=== PATIENT | female | born 1940 | race American Indian/Alaskan Native ===

== ENCOUNTER 2016-12-14 20:20 | Emergency (ER) | payer MEDICARE ==
[2016-12-14 21:43] LABS: Basophils % (Auto) 1.5 % (0.0-1.8); Eosinophils % (Auto) 1.7 % (0.0-4.3); Hematocrit 26.1 % (30.3-42.9); Hemoglobin 7.9 gm/dl (10.1-14.3); Mean Corpuscular HGB Conc 30 % (30-34); Platelet Count 367 K/mm3 (140-440); Red Blood Count 3.74 M/mm3 (3.65-5.03); White Blood Count 7.5 K/mm3 (4.5-11.0)
[2016-12-14 21:45] LABS: Mean Corpuscular Hemoglobin 21 pg (28-32); Mean Corpuscular Volume 70 fl (79-97); Red Cell Distribution Width 20.4 % (13.2-15.2)
[2016-12-14 21:57] LABS: Anion Gap 21 mmol/L; BUN/Creatinine Ratio 11.25; Blood Urea Nitrogen 9 mg/dL (7-17); Calcium 9.3 mg/dL (8.4-10.2); Carbon Dioxide 21 mmol/L (22-30); Chloride 99.8 mmol/L (98-107); Glucose 103 mg/dL (65-100); Potassium 3.9 mmol/L (3.6-5.0); Sodium 138 mmol/L (137-145)
--- NOTE | 2016-12-14 22:55 | XRay Report ---
FINAL REPORT EXAM: XR CHEST ROUTINE 2V HISTORY: shortness of breath TECHNIQUE: PA and lateral chest radiographs PRIORS: None. FINDINGS: No mediastinal shift. Cardiac silhouette is enlarged. Hyperaeration of the lungs and flattening of the hemidiaphragms. No pneumothorax, effusion, or focal pulmonary opacity. No acute skeletal finding. IMPRESSION: No focal pulmonary opacity. Sequela of COPD and heart failure.
[2016-12-15] MEDS ORDERED: PROVENTIL IH ONE (05:30)
[2016-12-15] MEDS: ATROVENT IH ONE (05:53)
[2016-12-15 06:40] VITALS: BP 122/61
--- NOTE | 2016-12-15 06:50 | Emergency Department Report ---
HPI - General Chief Complaint: Upper Respiratory Infection Time Seen by Provider: 12/15/16 06:08 - HPI HPI: This is a 76-year-old Afro-[place] female presents to the emergency department with a complaint of a one-week history of productive cough with some yellowish sputum. Patient says she has been having some subjective fever with sweats at night. The cough does not happen consistently but she will have episodes with coughing fits and it is getting more consistent over the past few days. She denies any chest pain, swelling, nausea, vomiting or diaphoresis. She has not been a smoker for many decades but does have a [id number] history. She has history of CHF, COPD but is not oxygen dependent, diabetes, hypertension. She is from [facility] which is where she has a primary care physician. She did not take anything for her symptoms prior to presentation. The patient keeps saying that she has a "cold but I let it get too far." ED Past Medical Hx - Past Medical History Previous Medical History?: Yes Hx Hypertension: Yes Hx Congestive Heart Failure: Yes Hx Diabetes: Yes Hx COPD: Yes - Surgical History Past Surgical History?: Yes Hx Cholecystectomy: Yes - Social History Smoking Status: Never Smoker - Medications Home Medications: Home Medications Medication Instructions Recorded Confirmed Last Taken Type ALBUTEROL Inhaler [ProAir HFA 2 puff IH QID PRN #1 inhalation 12/15/16 Unknown Rx Inhaler] Azithromycin [Zithromax Z-JAMILA] 250 mg PO QDAY #6 tablet 12/15/16 Unknown Rx Benzonatate [Tessalon Perles] 100 mg PO Q8HR PRN #20 capsule 12/15/16 Unknown Rx ED Review of Systems ROS: Stated complaint: COLD SX Other details as noted in HPI Comment: All other systems reviewed and negative Constitutional: fever (subjective). denies: chills Eyes: denies: eye pain, eye discharge, vision change Respiratory: cough. denies: shortness of breath Cardiovascular: denies: chest pain, palpitations Gastrointestinal: denies: abdominal pain, nausea, diarrhea Genitourinary: denies: urgency, dysuria, discharge Musculoskeletal: denies: back pain, joint swelling, arthralgia Skin: denies: rash, lesions Neurological: denies: headache, weakness, paresthesias Physical Exam - Physical Exam Vital Signs: Vital Signs 12/14/16 12/14/16 12/15/16 21:05 21:11 04:00 Temperature 98.3 F 98.3 F 98.1 F Pulse Rate 91 H 91 H 90 Pulse Rate [ Bilateral Throughout] Respiratory 20 18 22 Rate Respiratory Rate [Bilateral Throughout] Blood Pressure 117/57 Blood Pressure 117/57 115/63 [Right] O2 Sat by Pulse 97 100 97 Oximetry 12/15/16 12/15/16 05:53 06:40 Temperature Pulse Rate 98 H Pulse Rate [ 86 Bilateral Throughout] Respiratory 20 Rate Respiratory 18 Rate [Bilateral Throughout] Blood Pressure Blood Pressure 122/61 [Right] O2 Sat by Pulse 96 Oximetry Physical Exam: GENERAL: The patient is well-developed well-nourished. HEENT: Normocephalic. Atraumatic. Extraocular motions are intact. Patient has moist mucous membranes. Pupils equal reactive to light bilaterally. NECK: Supple. Trachea is midline. CHEST/LUNGS: Clear to auscultation. No tachypnea or accessory muscle use. There was an occasional productive sounding cough heard during examination. There is no respiratory distress noted. HEART/CARDIOVASCULAR: Regular. There is no tachycardia. There is no gallop rub or murmur. ABDOMEN: Abdomen is soft, nontender. Patient has normal bowel sounds. There is no abdominal distention. SKIN: Skin is warm and dry. NEURO: The patient is awake, alert, and oriented. The patient is cooperative. The patient has no focal neurologic deficits. The patient has normal speech. MUSCULOSKELETAL: There is no tenderness or deformity. There is no limitation range of motion. There is no evidence of acute injury. ED Course Vital Signs 12/14/16 12/14/16 12/15/16 21:05 21:11 04:00 Temperature 98.3 F 98.3 F 98.1 F Pulse Rate 91 H 91 H 90 Pulse Rate [ Bilateral Throughout] Respiratory 20 18 22 Rate Respiratory Rate [Bilateral Throughout] Blood Pressure 117/57 Blood Pressure 117/57 115/63 [Right] O2 Sat by Pulse 97 100 97 Oximetry 12/15/16 12/15/16 05:53 06:40 Temperature Pulse Rate 98 H Pulse Rate [ 86 Bilateral Throughout] Respiratory 20 Rate Respiratory 18 Rate [Bilateral Throughout] Blood Pressure Blood Pressure 122/61 [Right] O2 Sat by Pulse 96 Oximetry ED Medical Decision Making - Lab Data Result diagrams: 12/14/16 21:23 12/14/16 21:23 - EKG Data -: EKG Interpreted by Me EKG shows normal: sinus rhythm, axis, intervals, QRS complexes, ST-T waves ( nonspecific ST-T changes) Rate: normal - EKG Data When compared to previous EKG there are: previous EKG unavailable Interpretation: nonspecific ST-T wave chan - Radiology Data Radiology results: image reviewed interpreted by me: Chest x-ray shows some hyperinflation of the lungs with flattening of the diaphragm consistent with COPD. Otherwise there was no pneumothorax, no effusions or obvious pneumonia. - Medical Decision Making 76-year-old female presents with one-week history of productive cough. She denies any chest pain or actual shortness of breath or respiratory distress at any point. While the patient says that she feels like she has some night sweats and fever, there is no fever here and the patient has not x-ray checked her temperature. Her vital signs were stable here including being afebrile. Chest x-ray did not show any pleural effusions, pneumothorax, pneumonia or any cavitating lesions. Her labs are unremarkable including no leukocytosis, electrolyte abnormalities, renal insufficiency, glucose abnormalities. Patient was given a breathing treatment and says she is feeling improved. Since the patient does not have any chest pain, shortness of breath, normal labs, stable/ chronic chest x-ray appearance, she appears safe for discharge home at this time. However I spoke to her in great detail that she should return to the emergency department with any worsening or symptoms or specifically any development of chest pain or shortness of breath as it seemed like her only main complaint today was a cough and subjective fever. Otherwise she will return to [place] early next week and has been encouraged to see her primary care physician. - Differential Diagnosis upper respiratory infection, pneumonia, CHF, asthma Critical Care Time: No Critical care attestation.: If time is entered above; I have spent that time in minutes in the direct care of this critically ill patient, excluding procedure time. ED Disposition Clinical Impression: Cough Upper respiratory infection Qualifiers: URI type: unspecified URI Qualified Code(s): J06.9 - Acute upper respiratory infection, unspecified Disposition: DISCHARGED TO HOME OR SELFCARE Is pt being admited?: No Condition: Stable Instructions: Upper Respiratory Infection (ED) Additional Instructions: Please follow-up with your primary care physician once you return to [place]. Return to the emergency department sooner with any worsening of her symptoms, development of chest pain or shortness of breath, intractable fever or any acute distress. Prescriptions: ALBUTEROL Inhaler [ProAir HFA Inhaler] 2 puff IH QID PRN #1 inhalation PRN Reason: Shortness Of Breath Azithromycin [Zithromax Z-JAMILA] 250 mg PO QDAY #6 tablet Benzonatate [Tessalon Perles] 100 mg PO Q8HR PRN #20 capsule PRN Reason: Cough Referrals: PRIMARY CARE, [Primary Care Provider] - [facility] Forms: Accompanied Note Time of Disposition: 07:02
== END 2016-12-15 07:11 | disposition home or self-care (01) ==
LOC: ED 20:20
DX: J06.9 Acute upper respiratory infection, unspecified (principal); I10 Essential (primary) hypertension; I50.9 Heart failure, unspecified; E11.9 Type 2 diabetes mellitus without complications; J44.9 Chronic obstructive pulmonary disease, unspecified
CPT/HCPCS: 36415; 71020; 80048; 85025; 87040; 93005; 93010; 94640

== ENCOUNTER 2018-03-14 14:41 | Emergency (ER) | payer MEDICARE ==
[2018-03-14 15:35] LABS: Hematocrit 38.5 % (30.3-42.9); Hemoglobin 12.6 gm/dl (10.1-14.3); Mean Corpuscular HGB Conc 33 % (30-34); Mean Corpuscular Hemoglobin 29 pg (28-32); Mean Corpuscular Volume 88 fl (79-97); Platelet Count 243 K/mm3 (140-440)
[2018-03-14 15:40] LABS: Red Cell Distribution Width 20.1 % (13.2-15.2)
[2018-03-14 17:50] LABS: Alanine Aminotransferase 27 units/L (7-56); Albumin 3.9 g/dL (3.9-5); BUN/Creatinine Ratio 20; Blood Urea Nitrogen 14 mg/dL (7-17); Calcium 9.7 mg/dL (8.4-10.2); Hemolysis Index 3
[2018-03-14 18:47] LABS: INR 9.18 (0.87-1.13); Partial Thromboplastin Time 71.1 Sec. (24.2-36.6)
--- NOTE | 2018-03-14 19:56 | Emergency Department Report ---
ED Medical Clearance HPI - General Chief complaint: Medical Clearance Stated complaint: BLOOD WORK Time Seen by Provider: 03/14/18 19:55 Source: patient Mode of arrival: Ambulatory - History of Present Illness Initial comments: Patient is a 38-year-old female past medical history of congestive heart failure , COPD, diabetes, hypertension who presents today for medical clearance. 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 Patient is on Coumadin 3 mg. She got her Coumadin level checked today and it was 8. She was sent here for evaluation. Patient denies having any nausea or vomiting. Patient says that she had a blood streak stool 3 days ago. She denies having any fever vomiting blood or bruising easily. She also denies having any falls. Home medications: Home Medications Medication Instructions Recorded Confirmed Last Taken Aspirin [Aspirin BABY CHEW TAB] 81 mg PO QDAY 03/14/18 03/14/18 Unknown Carvedilol [Coreg] 3.125 mg PO DAILY 03/14/18 03/14/18 Unknown Digoxin 125 mcg PO DAILY 03/14/18 03/14/18 Unknown Docusate Sodium [Stool Softener] 100 mg PO DAILY 03/14/18 03/14/18 Unknown Pantoprazole [Protonix] 40 mg PO QDAY 03/14/18 03/14/18 Unknown Spironolactone 25 mg PO DAILY 03/14/18 03/14/18 Unknown Warfarin Sodium [Coumadin] 3 mg PO QDAY 03/14/18 03/14/18 Unknown Previous Rx's Medication Instructions Recorded Last Taken Type ALBUTEROL Inhaler (OR & NICU) 2 puff IH QID PRN #1 inhalation 12/15/16 Unknown Rx [ProAir HFA Inhaler] Allergies/Adverse reactions: Allergies Allergy/AdvReac Type Severity Reaction Status Date / Time ramipril Allergy Unknown Verified 03/14/18 14:59 ED Review of Systems ROS: Stated complaint: BLOOD WORK Other details as noted in HPI Constitutional: denies: chills, fever Eyes: denies: eye pain, eye discharge, vision change ENT: denies: ear pain, throat pain Respiratory: denies: cough, shortness of breath, wheezing Cardiovascular: denies: chest pain, palpitations Endocrine: no symptoms reported Gastrointestinal: hematochezia (hemorrhoid). denies: abdominal pain, nausea, diarrhea Genitourinary: denies: urgency, dysuria, discharge Musculoskeletal: denies: back pain, joint swelling, arthralgia Skin: denies: rash, lesions Neurological: denies: headache, weakness, paresthesias Psychiatric: denies: anxiety, depression Hematological/Lymphatic: denies: easy bleeding, easy bruising ED Past Medical Hx - Past Medical History Hx Hypertension: Yes Hx Congestive Heart Failure: Yes Hx Diabetes: Yes Hx COPD: Yes Additional medical history: defib. vest - Surgical History Hx Cholecystectomy: Yes - Social History Smoking Status: Unknown if ever smoked Substance Use Type: None - Medications Home Medications: Home Medications Medication Instructions Recorded Confirmed Last Taken Type ALBUTEROL Inhaler (OR & NICU) 2 puff IH QID PRN #1 inhalation 12/15/16 03/14/18 Unknown Rx [ProAir HFA Inhaler] Aspirin [Aspirin BABY CHEW TAB] 81 mg PO QDAY 03/14/18 03/14/18 Unknown History Carvedilol [Coreg] 3.125 mg PO DAILY 03/14/18 03/14/18 Unknown History Digoxin 125 mcg PO DAILY 03/14/18 03/14/18 Unknown History Docusate Sodium [Stool Softener] 100 mg PO DAILY 03/14/18 03/14/18 Unknown History Pantoprazole [Protonix] 40 mg PO QDAY 03/14/18 03/14/18 Unknown History Spironolactone 25 mg PO DAILY 03/14/18 03/14/18 Unknown History Warfarin Sodium [Coumadin] 3 mg PO QDAY 03/14/18 03/14/18 Unknown History ED Physical Exam - General Limitations: Language Barrier General appearance: alert, in no apparent distress - Head Head exam: Present: atraumatic, normocephalic - Eye Eye exam: Present: normal appearance - ENT ENT exam: Present: mucous membranes moist - Neck Neck exam: Present: normal inspection - Respiratory Respiratory exam: Present: normal lung sounds bilaterally. Absent: respiratory distress - Cardiovascular Cardiovascular Exam: Present: regular rate, normal rhythm. Absent: systolic murmur, diastolic murmur, rubs, gallop - GI/Abdominal GI/Abdominal exam: Present: soft, normal bowel sounds - Extremities Exam Extremities exam: Present: normal inspection - Back Exam Back exam: Present: normal inspection - Neurological Exam Neurological exam: Present: alert, oriented X3 - Psychiatric Psychiatric exam: Present: normal affect, normal mood - Skin Skin exam: Present: warm, dry, intact, normal color. Absent: rash ED Course Vital Signs 03/14/18 14:52 Temperature 97.6 F Pulse Rate 60 Respiratory 18 Rate Blood Pressure 131/64 O2 Sat by Pulse 99 Oximetry ED Medical Decision Making - Lab Data Result diagrams: 03/14/18 15:08 03/14/18 15:08 Lab Results 03/14/18 03/14/18 03/14/18 Range/Units 15:08 15:08 15:08 WBC 3.3 L (4.5-11.0) K/mm3 RBC 4.40 (3.65-5.03) M/mm3 Hgb 12.6 (10.1-14.3) gm/dl Hct 38.5 (30.3-42.9) % MCV 88 (79-97) fl MCH 29 (28-32) pg MCHC 33 (30-34) % RDW 20.1 H (13.2-15.2) % Plt Count 243 (140-440) K/mm3 PT 74.4 H (12.2-14.9) Sec. INR 9.18 H* (0.87-1.13) APTT 71.1 H* (24.2-36.6) Sec. Sodium 145 (137-145) mmol/L Potassium 4.2 (3.6-5.0) mmol/L Chloride 106.9 (98-107) mmol/L Carbon Dioxide 17 L (22-30) mmol/L Anion Gap 25 mmol/L BUN 14 (7-17) mg/dL Creatinine 0.7 (0.7-1.2) mg/dL Estimated GFR > 60 ml/min BUN/Creatinine Ratio 20 % Glucose 116 H (65-100) mg/dL Calcium 9.7 (8.4-10.2) mg/dL Total Bilirubin 1.80 H (0.1-1.2) mg/dL AST 43 H (5-40) units/L ALT 27 (7-56) units/L Alkaline Phosphatase 105 (35-129) units/L Total Protein 7.4 (6.3-8.2) g/dL Albumin 3.9 (3.9-5) g/dL Albumin/Globulin Ratio 1.1 % - Medical Decision Making Cdx: Supratheraputic INR 2/2 warfarin Ddx: Coagulopathy 2/2 non adherence to drug regimen, anemia I will get CBC, BMP, INR, PTT I will also give patient oral vitamin K and I will advise patient not to take her warfarin for a couple days based on the ACCP guidelines Discussed plan with patient additional verbal discharge instructions were given. ED Disposition Clinical Impression: Supratherapeutic INR Disposition: [id number]-01 TO HOME OR SELFCARE Is pt being admited?: No Does the pt Need Aspirin: No Condition: Stable Instructions: Vitamin K in Foods (ED), Warfarin (By mouth), Elevated INR (ED) Referrals: NIRANJAN DOOLEY MD [Staff Physician] - 3-5 Days
[2018-03-14] MEDS ORDERED: VITAMIN K *ORAL LIQUID PO ONE (21:06)
[2018-03-14 23:47] VITALS: BP 128/68
== END 2018-03-14 23:47 | disposition home or self-care (01) ==
LOC: ED 14:41
DX: Z51.81 Encounter for therapeutic drug level monitoring (principal); I10 Essential (primary) hypertension; I11.0 Hypertensive heart disease with heart failure; I50.9 Heart failure, unspecified; E11.9 Type 2 diabetes mellitus without complications; J44.9 Chronic obstructive pulmonary disease, unspecified; D65 Disseminated intravascular coagulation [defibrination syndrome]; Z90.49 Acquired absence of other specified parts of digestive tract; Z79.899 Other long term (current) drug therapy
CPT/HCPCS: 36415; 80053; 85027; 85610; 85730; 99283; J3430

== ENCOUNTER 2020-08-13 12:47 | Inpatient (IN) | payer MEDICARE ==
[2020-08-13] MEDS ORDERED: DEXTROSE 50% IN WATER (25GM) 50 ML SYRINGE IV ONE ×6 (12:51→23:45)
[2020-08-13] MEDS ORDERED: GLUCAGON (HUMAN RECOMBINANT) 1 MG/ML INJ IV ONE (12:56)
[2020-08-13] MEDS ORDERED: LIP THERAPY VASELINE TP PRN (12:58)
[2020-08-13] MEDS ORDERED: MINERAL OIL/PETROLATUM, WHITE OPHTH OINT 3.5 GM OU PRN (12:58)
[2020-08-13] MEDS ORDERED: ACETAMINOPHEN 325 MG TAB PO PRN (12:58)
[2020-08-13] MEDS ORDERED: D5W/0.9% NACL 1,000 ML IV SCH (13:00)
--- NOTE | 2020-08-13 13:14 | Emergency Department Report ---
ED General Adult HPI - General Chief complaint: Cardiac Arrest/CPR Stated complaint: CA Time Seen by Provider: 08/13/20 12:55 Source: EMS Mode of arrival: Stretcher Limitations: Other - History of Present Illness Initial comments: The patient presents to the emergency department via [facility] with return of spontaneous circulation. Per EMS they were called to the home for difficulty with breathing upon their arrival the patient's O2 sats were in the 70s while attempting to place the patient on CPAP the patient coded. Per EMS the patient was recently diagnosed with Covid. Patient did go in the ventricular tachycardia and was shot given epinephrine return of spontaneous circulation in route to the ED. Patient was intubated prior to arrival to the ED. -: Sudden Improves with: none Worsens with: none Associated Symptoms: denies other symptoms Treatments Prior to Arrival: none - Related Data Home Medications Medication Instructions Recorded Confirmed Last Taken Aspirin [Aspirin BABY CHEW TAB] 81 mg PO DAILY 03/14/18 07/23/20 Unknown Carvedilol [Coreg] 3.125 mg PO DAILY 03/14/18 07/23/20 Unknown Docusate Sodium [Stool Softener] 100 mg PO DAILY 03/14/18 07/23/20 Unknown Spironolactone 25 mg PO DAILY 03/14/18 07/23/20 Unknown Previous Rx's Medication Instructions Recorded Last Taken Type Pantoprazole [Protonix TAB] 40 mg PO QDAY #30 tablet 06/18/18 Unknown Rx polyethylene glycoL 3350 [Miralax 17 gm PO BID PRN #20 powd.pack 06/18/18 Unknown Rx 3350] Antacid [Alum-Mag Hydrox-Simeth 15 ml PO Q4H PRN oral.liqd 07/24/20 Unknown Rx [id number]/5Ml] Apixaban [Eliquis] 2.5 mg PO Q12HR #60 tablet 07/24/20 Unknown Rx Ascorbic Acid [Vitamin C] 500 mg PO DAILY #30 tablet 07/24/20 Unknown Rx Zinc Sulfate 220 mg PO QDAY #30 capsule 07/24/20 Unknown Rx dexAMETHasone [Dexamethasone] 6 mg PO DAILY #6 tablet 07/24/20 Unknown Rx traMADoL [Ultram 50 MG tab] 50 mg PO Q4H PRN #6 tablet 07/24/20 Unknown Rx Allergies Allergy/AdvReac Type Severity Reaction Status Date / Time ramipril Allergy Unknown Verified 06/15/18 12:45 ED Review of Systems ROS: Stated complaint: CA Other details as noted in HPI Comment: Unobtainable due to pts medical conditions ED Past Medical Hx - Past Medical History Previous Medical History?: Yes Hx Hypertension: Yes Hx Congestive Heart Failure: Yes Hx Diabetes: Yes Hx COPD: Yes Additional medical history: defib. vest(no longer have). Atrial fibrillation. Gastric AVM causing GI bleed - Surgical History Past Surgical History?: Yes Hx Cholecystectomy: Yes - Social History Smoking Status: Unknown if ever smoked - Medications Home Medications: Home Medications Medication Instructions Recorded Confirmed Last Taken Type Aspirin [Aspirin BABY CHEW TAB] 81 mg PO DAILY 03/14/18 07/23/20 Unknown History Carvedilol [Coreg] 3.125 mg PO DAILY 03/14/18 07/23/20 Unknown History Docusate Sodium [Stool Softener] 100 mg PO DAILY 03/14/18 07/23/20 Unknown History Spironolactone 25 mg PO DAILY 03/14/18 07/23/20 Unknown History Pantoprazole [Protonix TAB] 40 mg PO QDAY #30 tablet 06/18/18 07/23/20 Unknown Rx polyethylene glycoL 3350 [Miralax 17 gm PO BID PRN #20 powd.pack 06/18/18 07/23/20 Unknown Rx 3350] Antacid [Alum-Mag Hydrox-Simeth 15 ml PO Q4H PRN oral.liqd 07/24/20 Unknown Rx [id number]/5Ml] Apixaban [Eliquis] 2.5 mg PO Q12HR #60 tablet 07/24/20 Unknown Rx Ascorbic Acid [Vitamin C] 500 mg PO DAILY #30 tablet 07/24/20 Unknown Rx Zinc Sulfate 220 mg PO QDAY #30 capsule 07/24/20 Unknown Rx dexAMETHasone [Dexamethasone] 6 mg PO DAILY #6 tablet 07/24/20 Unknown Rx traMADoL [Ultram 50 MG tab] 50 mg PO Q4H PRN #6 tablet 07/24/20 Unknown Rx ED Physical Exam - General Limitations: Other General appearance: other (Intubated) - Head Head exam: Present: atraumatic, normocephalic - Eye Eye exam: Present: normal appearance, PERRL. Absent: scleral icterus, conjunctival injection - ENT ENT exam: Present: mucous membranes dry - Neck Neck exam: Present: normal inspection - Respiratory Respiratory exam: Present: normal lung sounds bilaterally (With bagging). Absent: respiratory distress - Cardiovascular Cardiovascular Exam: Present: normal rhythm, tachycardia. Absent: systolic murmur, diastolic murmur, rubs, gallop - GI/Abdominal GI/Abdominal exam: Present: soft, normal bowel sounds. Absent: distended, tenderness - Extremities Exam Extremities exam: Present: normal inspection - Back Exam Back exam: Present: normal inspection - Neurological Exam Neurological exam: Present: other (Patient has corneal reflex and withdraws from painful stimuli) - Psychiatric Psychiatric exam: Present: other (Not able to assess due to the patient's condition) - Skin Skin exam: Present: warm, dry, intact, normal color. Absent: rash ED Course Vital Signs 08/13/20 08/13/20 08/13/20 12:47 13:04 13:15 Temperature Pulse Rate 104 H 101 H 93 H Respiratory 18 18 18 Rate Blood Pressure 127/67 Blood Pressure 141/79 128/72 [Right] O2 Sat by Pulse 96 100 100 Oximetry 08/13/20 08/13/20 08/13/20 13:33 13:40 13:55 Temperature Pulse Rate 89 85 82 Respiratory 18 18 Rate Blood Pressure 128/72 Blood Pressure 136/64 118/66 [Right] O2 Sat by Pulse 100 100 100 Oximetry 08/13/20 08/13/20 08/13/20 14:00 14:05 14:58 Temperature 95.5 F L Pulse Rate 84 105 H 108 H Respiratory 18 18 18 Rate Blood Pressure Blood Pressure 121/67 124/68 154/82 [Right] O2 Sat by Pulse 100 100 100 Oximetry 08/13/20 08/13/20 08/13/20 15:06 15:10 15:44 Temperature Pulse Rate 90 110 H 120 H Respiratory 21 18 18 Rate Blood Pressure Blood Pressure [Right] O2 Sat by Pulse 98 97 Oximetry 08/13/20 08/13/20 08/13/20 15:45 15:50 15:53 Temperature Pulse Rate 110 H 107 H 94 H Respiratory 18 21 Rate Blood Pressure 126/74 154/82 Blood Pressure 126/74 [Right] O2 Sat by Pulse 95 98 100 Oximetry 08/13/20 08/13/20 08/13/20 16:00 16:10 16:13 Temperature Pulse Rate 87 88 Respiratory 19 20 18 Rate Blood Pressure 126/74 114/65 Blood Pressure 114/65 [Right] O2 Sat by Pulse 97 96 100 Oximetry 08/13/20 08/13/20 08/13/20 16:20 16:30 16:40 Temperature Pulse Rate 81 99 H 82 Respiratory 19 18 18 Rate Blood Pressure 111/63 105/60 105/60 Blood Pressure 105/60 [Right] O2 Sat by Pulse 97 95 97 Oximetry 08/13/20 08/13/20 08/13/20 16:50 17:00 17:10 Temperature Pulse Rate 81 77 79 Respiratory 18 18 19 Rate Blood Pressure 108/65 104/60 104/60 Blood Pressure 104/60 [Right] O2 Sat by Pulse 95 95 96 Oximetry 08/13/20 08/13/20 08/13/20 17:20 17:30 17:40 Temperature Pulse Rate 79 79 77 Respiratory 19 18 18 Rate Blood Pressure 109/67 108/60 108/60 Blood Pressure 108/60 [Right] O2 Sat by Pulse 97 95 97 Oximetry 08/13/20 08/13/20 08/13/20 17:50 18:00 18:10 Temperature Pulse Rate 78 77 73 Respiratory 19 18 19 Rate Blood Pressure 114/69 100/55 100/55 Blood Pressure 100/55 [Right] O2 Sat by Pulse 97 97 99 Oximetry 08/13/20 08/13/20 08/13/20 18:20 18:30 18:31 Temperature Pulse Rate 73 96 H 118 H Respiratory 18 13 18 Rate Blood Pressure 103/51 129/84 Blood Pressure 129/84 [Right] O2 Sat by Pulse 98 97 97 Oximetry 08/13/20 08/13/20 08/13/20 18:40 18:46 18:50 Temperature Pulse Rate 110 H 102 H 74 Respiratory 18 18 18 Rate Blood Pressure 129/84 80/47 Blood Pressure 79/53 [Right] O2 Sat by Pulse 99 98 100 Oximetry 08/13/20 08/13/20 08/13/20 19:00 19:10 19:20 Temperature Pulse Rate 63 62 62 Respiratory 0 L 0 L 18 Rate Blood Pressure 72/46 72/46 72/42 Blood Pressure 72/46 [Right] O2 Sat by Pulse 99 100 99 Oximetry 08/13/20 08/13/20 08/13/20 19:30 19:51 20:00 Temperature Pulse Rate 61 60 61 Respiratory 18 18 Rate Blood Pressure 75/46 75/43 Blood Pressure 72/41 [Right] O2 Sat by Pulse 100 100 Oximetry 08/13/20 08/13/20 08/13/20 20:15 20:30 21:00 Temperature Pulse Rate 58 L 59 L 60 Respiratory 18 18 19 Rate Blood Pressure Blood Pressure 74/45 77/39 78/44 [Right] O2 Sat by Pulse 100 100 98 Oximetry 08/13/20 08/13/20 08/13/20 21:15 21:30 21:45 Temperature Pulse Rate 66 59 L 90 Respiratory 18 20 18 Rate Blood Pressure Blood Pressure 79/42 91/49 96/51 [Right] O2 Sat by Pulse 100 100 100 Oximetry 08/13/20 08/13/20 08/13/20 21:47 22:00 22:10 Temperature Pulse Rate 62 60 63 Respiratory 20 20 19 Rate Blood Pressure 96/51 96/44 Blood Pressure [Right] O2 Sat by Pulse 100 100 100 Oximetry 08/13/20 08/13/20 08/13/20 22:20 22:30 22:40 Temperature Pulse Rate 63 68 64 Respiratory 21 20 19 Rate Blood Pressure 92/49 90/48 90/48 Blood Pressure [Right] O2 Sat by Pulse 100 100 100 Oximetry 08/13/20 08/13/20 08/13/20 22:50 23:00 23:10 Temperature Pulse Rate 69 67 65 Respiratory 20 19 19 Rate Blood Pressure 98/53 101/53 101/53 Blood Pressure [Right] O2 Sat by Pulse 100 99 96 Oximetry 08/13/20 23:20 Temperature Pulse Rate 82 Respiratory 13 Rate Blood Pressure Blood Pressure [Right] O2 Sat by Pulse 100 Oximetry ED Medical Decision Making - Lab Data Result diagrams: 08/19/20 04:39 08/19/20 04:39 Lab Results 08/13/20 Range/Units 13:55 ABG pH 7.126 L* (7.350-7.450) pH Units ABG pCO2 33.1 mm Hg ABG pO2 375.9 H (80.0-90.0) mm Hg ABG HCO3 10.7 L (20.0-26.0) mmol/L ABG O2 Saturation 99.5 H (95.0-99.0) % ABG O2 Content 16.8 (0.0-44) ABG Base Excess -17.4 L (-2.0-3.0) mmol/L ABG Hemoglobin 11.5 L (12.0-16.0) gm/dl ABG Carboxyhemoglobin 1.7 (0.0-5.0) % ABG Methemoglobin 0.6 (0.0-1.5) % Oxyhemoglobin 97.3 (95.0-99.0) % FiO2 100 % - EKG Data -: EKG Interpreted by Mi EKG shows normal: sinus rhythm Rate: tachycardia - Medical Decision Making The patient had return of spontaneous circulation upon arrival to the ED The patient's glucose was checked at bedside and was less than 10 Patient was given 2 A of D50, 1 mg of glucagon, and a liter bolus of D5 normal saline Patient placed on fentanyl for sedation Contacted by radiology that the ET tube need to be withdrawn by 5 cm. Contacted respiratory therapy and ET tube was adjusted Critical Care Time: Yes Critical care time in (mins) excluding proc time.: 45 Critical care attestation.: If time is entered above; I have spent that time in minutes in the direct care of this critically ill patient, excluding procedure time. ED Disposition Clinical Impression: Cardiac arrest, Hypoglycemia, Respiratory failure Disposition: [id number] OP ADMIT IP TO THIS HOSP Is pt being admited?: Yes Does the pt Need Aspirin: No Condition: Critical
[2020-08-13] MEDS: fentaNYL 100 MCG/2 ML INJ IV PRN ×3 (13:31→18:36)
[2020-08-13] MEDS ORDERED: fentaNYL DRIP Premix 2,000 MCG/100 ML BAG IV SCH (14:00)
[2020-08-13 14:20] LABS: ABG Base Excess -17.4 mmol/L (-2.0-3.0); ABG HCO3 10.7 mmol/L (20.0-26.0); ABG Methemoglobin 0.6 % (0.0-1.5); ABG Oxygen Saturation 99.5 % (95.0-99.0); ABG PCO2 33.1 mm Hg
[2020-08-13 14:23] LABS: ABG PH 7.126 pH Units (7.350-7.450); ABG PO2 375.9 mm Hg (80.0-90.0)
[2020-08-13 14:34] LABS: Mean Corpuscular HGB Conc 30 % (30-34); Mean Corpuscular Volume 99 fl (79-97); Platelet Count 148 K/mm3 (140-440); Red Blood Count 4.01 M/mm3 (3.65-5.03); Red Cell Distribution Width 19.6 % (13.2-15.2)
[2020-08-13 14:40] LABS: Hematocrit 39.7 % (30.3-42.9); Hemoglobin 11.9 gm/dl (10.1-14.3)
[2020-08-13 14:48] LABS: Partial Thromboplastin Time 45.4 Sec. (24.2-36.6)
[2020-08-13 14:57] LABS: Alanine Aminotransferase 37 units/L (7-56); Albumin 3.1 g/dL (3.9-5); BUN/Creatinine Ratio 31; Blood Urea Nitrogen 34 mg/dL (7-17); Calcium 8.4 mg/dL (8.4-10.2); Hemolysis Index 64
[2020-08-13] MEDS ORDERED: CEFEPIME/NS 1 GM/100 ML 1 GM/100 ML BAG IV ONE (15:06)
--- NOTE | 2020-08-13 15:08 | XRay Report ---
CHEST 1 VIEW 08/13/2020 1:57 PM INDICATION / CLINICAL INFORMATION: ETT placement. COMPARISON: 07/22/2020 FINDINGS: SUPPORT DEVICES: Endotracheal tube at the level of the dalia and oriented towards the right mainstem bronchus. HEART / MEDIASTINUM: Stable. LUNGS / PLEURA: Chronic interstitial opacities which appear stable dating back to 07/22/2020. No defini te acute pulmonary parenchymal or pleural abnormalities. No pneumothorax. ADDITIONAL FINDINGS: No significant additional findings. IMPRESSION: 1. Endotracheal tube at the level of the dalia, as above. Recommend retracting 5 cm. IMPORTANT FINDING: Time of Communication (OPTICAL DESIGNER/CDT): 1400 Licensed Practitioner Receiving Report: Jose Nieto M.D. Signer Name: Jayesh Winkler MD Signed: 08/13/2020 3:04 PM Workstation Name: [id number]
[2020-08-13 15:18] LABS: Bilirubin,Urine NEG (Negative); Blood,Urine NEG (Negative); Color,Urine Yellow (Yellow); Hyaline Casts,Urine 1 /LPF; Mucus,Urine FEW /HPF
[2020-08-13 15:46] LABS: Band Neutrophils # (Manual) 0.1 K/mm3; Myelocytes # (Manual) 0.1 K/mm3; Total Cells Counted 100
[2020-08-13 15:47] LABS: Anisocytosis 1+; Large Platelets Few; Platelet Estimate Consistent w Auto
--- NOTE | 2020-08-13 15:52 | Cat Scan Report ---
CT BRAIN: 08/13/2020 INDICATION / CLINICAL INFORMATION: ams. COMPARISON: 07/19/2020 FINDINGS: BRAIN/INTRACRANIAL STRUCTURES: Unenhanced CT images of the brain demonstrate no evidence of acute int racranial abnormality. Ventricles and sulci are prominent in size, consistent with pronounced diffuse cerebral atrophy. There is no evidence of acute ischemic injury, hemorrhage, or mass. Chronic white matter hypoattenuat ion is again noted. There are no abnormal extra-axial fluid collections. Old left parietal shantel hole is present. EXTRACRANIAL STRUCTURES: Unremarkable. IMPRESSION: No acute abnormality. Chronic and age-related changes. No change when compared to 07/19/2020. All CT scans at this location are performed using dose reduction to ALARA by means of automated expos ure control. Signer Name: Eliot Wiggins MD Signed: 08/13/2020 3:47 PM Workstation Name: [id number]
--- NOTE | 2020-08-13 15:56 | Cat Scan Report ---
CTA CHEST WITH IV CONTRAST INDICATION: cardiac arrest. TECHNIQUE: Axial CT images were obtained through the chest after injection of 100 cc Omnipaque 350 IV contrast. 3 plane MIP reconstructions were produced. All CT scans at this location are performed using CT dose reduction for ALARA by means of automated exposure control. COMPARISON: Chest one view from earlier today. CT chest without contrast from 07/19/2020. FINDINGS: PULMONARY ARTERIES: Good opacification without identification of thromboemboli. AORTA AND ARTERIES: Normal caliber of the aorta with mild generalized aortic and great vessel atheros clerosis and moderate generalized coronary atherosclerosis. HEART: Stable enlargement of the heart without a significant pericardial effusion. Reflux of contrast into the IVC and hepatic veins is compatible with right heart dysfunction. MEDIASTINUM: Stable multinodular enlargement of the right thyroid lobe. No other mass or lymphadenopa thy. Normal caliber of the trachea/main bronchi with appropriate positioning of an ET tube. LUNGS: There is mild bilateral emphysema with nonspecific bilateral consolidations versus atelectasis that are mainly seen along the lower lobes. Trace right pleural effusion. No pneumothorax. No suspic ious nodule/mass. ADDITIONAL FINDINGS: None. UPPER ABDOMEN: No acute findings. BONES: No significant osseous abnormality. IMPRESSION: 1. No CT evidence for pulmonary embolism. 2. Bilateral consolidations/atelectasis. Early pneumonia secondary to aspiration or other causes nidia ot be excluded. 3. Additional findings as above. Signer Name: Randy Saab MD Signed: 08/13/2020 3:51 PM Workstation Name: [id number]
[2020-08-13 16:26] LABS: Blood Urea Nitrogen TNR mg/dL (7-17)
[2020-08-13 16:27] LABS: BUN/Creatinine Ratio TNR
[2020-08-13 16:28] LABS: Albumin TNR g/dL (3.9-5); Calcium TNR mg/dL (8.4-10.2); Hemolysis Index TNR
[2020-08-13 16:29] LABS: Alanine Aminotransferase TNR units/L (7-56)
[2020-08-13] MEDS ORDERED: INSULIN REGULAR, HUMAN 100 UNITS/1 ML ONE ×2 (16:57→20:57)
[2020-08-13 17:36] LABS: Albumin 3.6 g/dL (3.9-5); Calcium 8.6 mg/dL (8.4-10.2)
[2020-08-13] MEDS ORDERED: INSULIN REGULAR, HUMAN 100 UNITS/1 ML IV ONE (18:20)
[2020-08-13] MEDS ORDERED: LORazepam 2 MG/ML VIAL IV ONE (18:25)
[2020-08-13] MEDS ORDERED: LORazepam 2 MG/ML VIAL IV PRN (18:27)
[2020-08-13 18:29] LABS: Chol/HDL Ratio 1.93 %
[2020-08-13] MEDS ORDERED: FUROSEMIDE 20 MG/2 ML INJ IV ONE (18:29)
[2020-08-13] MEDS ORDERED: CALCIUM CHLORIDE 1,000 MG in SODIUM CHLORIDE 0.9% 100 ML IV ONE (18:45)
[2020-08-13] MEDS ORDERED: SODIUM BICARB 8.4% 50 MEQ/50 ML SYRINGE IV ONE ×2 (18:45→21:01)
[2020-08-13] MEDS ORDERED: LORazepam 100 MG in SODIUM CHLORIDE 0.9% 50 ML, EMPTY BAG 0 ML IV SCH (19:00)
--- NOTE | 2020-08-13 21:09 | History and Physical Report ---
History of Present Illness Date of examination: 08/13/20 Date of admission: 08/13/20 18:41 Chief complaint: Cardiorespiratory failure History of present illness: History of Present Illness Initial comments: 80-year-old -[place] female with recent Covid infection and acute respiratory failure was admitted to [facility] On 07/19/2020 and discharged on 07/24/2020. Patient was discharged home with no home oxygen as her sats were fine on room air. And ambulatory sats were also good. Patient is active and does her ADLs by herself with small help. Patient was having difficulty with breathing and EMS was called. Oxygen satu rations were in the 70s. While attempting to place the patient on CPAP patient recorded and ACLS protocol was initiated. Patient was also went into ventricular tachycardia. Patient was given IV epinephrine because of the ACLS protocol. With return of spontaneous circulation. Patient was intubated on the field and was brought to the emergency room for further evaluation. On arrival in the emergency room patient was kept on ventilator and work-up was initiated. Patient had a ABG showing respiratory failure and metabolic acidosis. No acute infiltrates on the chest x-ray. As chronic interstitial markings. Patient being admitted for acute respiratory failure and hypertension with possible sepsis. History was given by her daughter who lives in [place] Her stay from July 19 to July 24, 2020 was reviewed. Patient had Covid pneumonia and acute kidney failure and syncope. Creatinine was corrected from 2.0 to normal. - Past Medical History Previous Medical History?: Yes --Hypertension: Yes --Congestive Heart Failure/NICMP --Diabetes: Yes --COPD: Yes Additional medical history: defib. vest(no longer have). Atrial fibrillation. Gastric AVM causing GI bleed - Surgical History Past Surgical History?: Yes --Cholecystectomy: Yes --Subdural hematoma in 2016/2016 and had a shantel hole. 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 no seizures Skin no rash no itching Psychiatric no depression no homicidal or suicidal tendencies Hematologic no lymphedema or bruising Endocrine no polydipsia no polyuria no cold intolerance no heat intolerance Medications and Allergies Allergies Allergy/AdvReac Type Severity Reaction Status Date / Time ramipril Allergy Unknown Verified 06/15/18 12:45 Home Medications Medication Instructions Recorded Confirmed Last Taken Type Aspirin [Aspirin BABY CHEW TAB] 81 mg PO DAILY 03/14/18 07/23/20 Unknown History Carvedilol [Coreg] 3.125 mg PO DAILY 03/14/18 07/23/20 Unknown History Docusate Sodium [Stool Softener] 100 mg PO DAILY 03/14/18 07/23/20 Unknown History Spironolactone 25 mg PO DAILY 03/14/18 07/23/20 Unknown History Pantoprazole [Protonix TAB] 40 mg PO QDAY #30 tablet 06/18/18 07/23/20 Unknown Rx polyethylene glycoL 3350 [Miralax 17 gm PO BID PRN #20 powd.pack 06/18/18 07/23/20 Unknown Rx 3350] Antacid [Alum-Mag Hydrox-Simeth 15 ml PO Q4H PRN oral.liqd 07/24/20 Unknown Rx [id number]/5Ml] Apixaban [Eliquis] 2.5 mg PO Q12HR #60 tablet 07/24/20 Unknown Rx Ascorbic Acid [Vitamin C] 500 mg PO DAILY #30 tablet 07/24/20 Unknown Rx Zinc Sulfate 220 mg PO QDAY #30 capsule 07/24/20 Unknown Rx dexAMETHasone [Dexamethasone] 6 mg PO DAILY #6 tablet 07/24/20 Unknown Rx traMADoL [Ultram 50 MG tab] 50 mg PO Q4H PRN #6 tablet 07/24/20 Unknown Rx Active Meds: Active Medications Acetaminophen (Acetaminophen 325 Mg Tab) 650 mg PO Q6H PRN PRN Reason: Pain, Mild (1-3) Fentanyl (Fentanyl 100 Mcg/2 Ml Inj) 50 mcg IV Q10MIN PRN PRN Reason: ANALGESIA Last Admin: 08/13/20 18:36 Dose: 50 mcg Documented by: Hydrophilic Ointment (Lip Therapy Vaseline) 1 applic TP Q2HR PRN PRN Reason: Dry Lips Dextrose/Sodium Chloride (D5ns) 1,000 mls @ 999 mls/hr IV DIRECT ALEXANDER Last Admin: 08/13/20 13:16 Dose: 999 mls/hr Documented by: Fentanyl Citrate (Fentanyl Drip Premix) 2,000 mcg in 100 mls @ 2.88 mls/hr IV TITR ALEXANDER; Protocol Last Titration: 08/13/20 18:37 Dose: 4 mcg/kg/hr, 11.52 mls/hr Documented by: Lorazepam 100 mg/ Sodium Chloride/ Miscellaneous Information 100 mls @ 1 mls/hr IV TITR ALEXANDER; Protocol Lorazepam (Lorazepam 2 Mg/Ml Vial) 2 mg IV Q10MIN PRN PRN Reason: Agitation Multi-Ingred Cream/Lotion/Oil/Oint (Mineral Oil/Petrolatum, White Ophth Oint 3.5 Gm) 1 applic OU Q4HR PRN PRN Reason: Dry Eye(s) Exam - Physical Exam Narrative exam: Patient is intubated Hypotensive - Constitutional Vitals: Temp Pulse Resp BP Pulse Ox 95.5 F L 60 18 75/43 100 08/13/20 14:58 08/13/20 19:51 08/13/20 19:00 08/13/20 19:51 08/13/20 19:51 General appearance: Present: severe distress, well-nourished - EENT Eyes: Present: PERRL ENT: hearing intact, clear oral mucosa - Neck Neck: Present: supple, normal ROM - Respiratory Respiratory effort: normal Respiratory: bilateral: CTA, rhonchi (Scattered) - Cardiovascular Heart rate: 98 Rhythm: regular Heart Sounds: Present: S1 & S2. Absent: rub, click - Extremities Extremities: no ischemia, pulses symmetrical, No edema Peripheral Pulses: within normal limits - Abdominal General gastrointestinal: Present: soft, non-tender, non-distended, normal bowel sounds Female genitourinary: Present: normal - Integumentary Integumentary: Present: clear, warm, dry - Musculoskeletal Musculoskeletal: other (Patient intubated) - Psychiatric Psychiatric: other (Patient is intubated) - Neurologic Neurologic: other (Patient is intubated) - Allied Health Allied health notes reviewed: nursing, case management HEART Score - HEART Score History: Highly suspicious Age: > 65 Risk factors: > 3 risk factors or hx of atherosclerotic disease Troponin: Troponin T < 0.010 ng/mL (0.00-0.029) 08/13/20 Unknown Troponin: 1-3x normal limit - Critical Actions Critical Actions: 4-6 pts:12-16.6% risk of adverse cardiac event. Should be admitted Results - Labs CBC & Chem 7: 08/14/20 07:31 08/18/20 05:59 Labs: Laboratory Last Values WBC 8.1 K/mm3 (4.5-11.0) 08/13/20 Unknown RBC 4.01 M/mm3 (3.65-5.03) 08/13/20 Unknown Hgb 11.9 gm/dl (10.1-14.3) 08/13/20 Unknown Hct 39.7 % (30.3-42.9) 08/13/20 Unknown MCV 99 fl (79-97) H 08/13/20 Unknown MCH 30 pg (28-32) 08/13/20 Unknown MCHC 30 % (30-34) 08/13/20 Unknown RDW 19.6 % (13.2-15.2) H 08/13/20 Unknown Plt Count 148 K/mm3 (140-440) 08/13/20 Unknown Add Manual Diff Complete 08/13/20 Unknown Total Counted 100 08/13/20 Unknown Seg Neuts % (Manual) 51.0 % (40.0-70.0) 08/13/20 Unknown Band Neutrophils % 1.0 % 08/13/20 Unknown Lymphocytes % (Manual) 32.0 % (13.4-35.0) 08/13/20 Unknown Monocytes % (Manual) 9.0 % (0.0-7.3) H 08/13/20 Unknown Eosinophils % (Manual) 1.0 % (0.0-4.3) 08/13/20 Unknown Basophils % (Manual) 2.0 % (0.0-1.8) H 08/13/20 Unknown Metamyelocytes % 3.0 % 08/13/20 Unknown Myelocytes % 1.0 % 08/13/20 Unknown Nucleated RBC % Not Reportable 08/13/20 Unknown Seg Neutrophils # Man 4.1 K/mm3 (1.8-7.7) 08/13/20 Unknown Band Neutrophils # 0.1 K/mm3 08/13/20 Unknown Lymphocytes # (Manual) 2.6 K/mm3 (1.2-5.4) 08/13/20 Unknown Abs React Lymphs (Man) 0.0 K/mm3 08/13/20 Unknown Monocytes # (Manual) 0.7 K/mm3 (0.0-0.8) 08/13/20 Unknown Eosinophils # (Manual) 0.1 K/mm3 (0.0-0.4) 08/13/20 Unknown Basophils # (Manual) 0.2 K/mm3 (0.0-0.1) H 08/13/20 Unknown Metamyelocytes # 0.2 K/mm3 08/13/20 Unknown Myelocytes # 0.1 K/mm3 08/13/20 Unknown Promyelocytes # 0.0 K/mm3 08/13/20 Unknown Blast Cells # 0.0 K/mm3 08/13/20 Unknown WBC Morphology Not Reportable 08/13/20 Unknown Hypersegmented Neuts Not Reportable 08/13/20 Unknown Hyposegmented Neuts Not Reportable 08/13/20 Unknown Hypogranular Neuts Not Reportable 08/13/20 Unknown Smudge Cells Not Reportable 08/13/20 Unknown Toxic Granulation Not Reportable 08/13/20 Unknown Toxic Vacuolation Not Reportable 08/13/20 Unknown Dohle Bodies Not Reportable 08/13/20 Unknown Pelger-Huet Anomaly Not Reportable 08/13/20 Unknown Nomi Rods Not Reportable 08/13/20 Unknown Platelet Estimate Consistent w auto 08/13/20 Unknown Clumped Platelets Not Reportable 08/13/20 Unknown Plt Clumps, EDTA Not Reportable 08/13/20 Unknown Large Platelets Few 08/13/20 Unknown Giant Platelets Not Reportable 08/13/20 Unknown Platelet Satelliting Not Reportable 08/13/20 Unknown Plt Morphology Comment Not Reportable 08/13/20 Unknown RBC Morphology Not Reportable 08/13/20 Unknown Dimorphic RBCs Not Reportable 08/13/20 Unknown Polychromasia Few 08/13/20 Unknown Hypochromasia Not Reportable 08/13/20 Unknown Poikilocytosis Not Reportable 08/13/20 Unknown Anisocytosis 1+ 08/13/20 Unknown Microcytosis Not Reportable 08/13/20 Unknown Macrocytosis Not Reportable 08/13/20 Unknown Spherocytes Not Reportable 08/13/20 Unknown Pappenheimer Bodies Not Reportable 08/13/20 Unknown Sickle Cells Not Reportable 08/13/20 Unknown Target Cells Not Reportable 08/13/20 Unknown Tear Drop Cells Not Reportable 08/13/20 Unknown Ovalocytes Not Reportable 08/13/20 Unknown Helmet Cells Not Reportable 08/13/20 Unknown Lawrence-Ivan Bodies Not Reportable 08/13/20 Unknown Bruneau Rings Not Reportable 08/13/20 Unknown Shantel Cells Not Reportable 08/13/20 Unknown Bite Cells Not Reportable 08/13/20 Unknown Crenated Cell Not Reportable 08/13/20 Unknown Elliptocytes Not Reportable 08/13/20 Unknown Acanthocytes (Spur) Not Reportable 08/13/20 Unknown Rouleaux Not Reportable 08/13/20 Unknown Hemoglobin C Crystals Not Reportable 08/13/20 Unknown Schistocytes Not Reportable 08/13/20 Unknown Malaria parasites Not Reportable 08/13/20 Unknown Harshil Bodies Not Reportable 08/13/20 Unknown Hem Pathologist Commnt No 08/13/20 Unknown APTT 45.4 Sec. (24.2-36.6) H 08/13/20 Unknown D-Dimer 8048.70 ng/mlDDU (0-234) H 08/13/20 Unknown ABG pH 7.126 pH Units (7.350-7.450) L* 08/13/20 13:55 ABG pCO2 33.1 mm Hg 08/13/20 13:55 ABG pO2 375.9 mm Hg (80.0-90.0) H 08/13/20 13:55 ABG HCO3 10.7 mmol/L (20.0-26.0) L 08/13/20 13:55 ABG O2 Saturation 99.5 % (95.0-99.0) H 08/13/20 13:55 ABG O2 Content 16.8 (0.0-44) 08/13/20 13:55 ABG Base Excess -17.4 mmol/L (-2.0-3.0) L 08/13/20 13:55 ABG Hemoglobin 11.5 gm/dl (12.0-16.0) L 08/13/20 13:55 ABG Carboxyhemoglobin 1.7 % (0.0-5.0) 08/13/20 13:55 ABG Methemoglobin 0.6 % (0.0-1.5) 08/13/20 13:55 Oxyhemoglobin 97.3 % (95.0-99.0) 08/13/20 13:55 FiO2 100 % 08/13/20 13:55 Sodium 133 mmol/L (137-145) L 08/13/20 Unknown Potassium TNR 08/13/20 Unknown Chloride 97.7 mmol/L (98-107) L 08/13/20 Unknown Carbon Dioxide 14 mmol/L (22-30) L 08/13/20 Unknown Anion Gap 27 mmol/L 08/13/20 Unknown BUN 34 mg/dL (7-17) H 08/13/20 Unknown Creatinine 1.1 mg/dL (0.6-1.2) 08/13/20 Unknown Estimated GFR 58 ml/min 08/13/20 Unknown BUN/Creatinine Ratio 31 % 08/13/20 Unknown Glucose 472 mg/dL (65-100) H 08/13/20 Unknown POC Glucose 198 mg/dL (70-105) H 08/13/20 18:59 Lactic Acid 6.90 mmol/L (0.7-2.0) H* 08/13/20 17:48 Calcium 8.4 mg/dL (8.4-10.2) 08/13/20 Unknown Total Bilirubin 2.60 mg/dL (0.1-1.2) H 08/13/20 Unknown AST 68 units/L (5-40) H 08/13/20 Unknown ALT 37 units/L (7-56) 08/13/20 Unknown Alkaline Phosphatase 111 units/L (35-129) 08/13/20 Unknown Total Creatine Kinase 64 units/L (30-135) 08/13/20 Unknown Troponin T < 0.010 ng/mL (0.00-0.029) 08/13/20 Unknown NT-Pro-B Natriuret Pep > 30399 pg/mL (0-900) H 08/13/20 Unknown Total Protein 6.7 g/dL (6.3-8.2) 08/13/20 Unknown Albumin 3.1 g/dL (3.9-5) L 08/13/20 Unknown Albumin/Globulin Ratio 0.9 % 08/13/20 Unknown Triglycerides 73 mg/dL (2-149) 08/13/20 16:33 Cholesterol 139 mg/dL (50-199) 08/13/20 16:33 LDL Cholesterol Direct 76 mg/dL (50-130) 08/13/20 16:33 HDL Cholesterol 72 mg/dL (40-59) H 08/13/20 16:33 Cholesterol/HDL Ratio 1.93 % 08/13/20 16:33 Urine Color Yellow (Yellow) 08/13/20 14:45 Urine Turbidity Slightly-cloudy (Clear) 08/13/20 14:45 Urine pH 6.0 (5.0-7.0) 08/13/20 14:45 Ur Specific [place] 1.010 (1.003-1.030) 08/13/20 14:45 Urine Protein 100 mg/dl mg/dL (Negative) 08/13/20 14:45 Urine Glucose (UA) >=500 mg/dL (Negative) 08/13/20 14:45 Urine Ketones Neg mg/dL (Negative) 08/13/20 14:45 Urine Blood Neg (Negative) 08/13/20 14:45 Urine Nitrite Neg (Negative) 08/13/20 14:45 Urine Bilirubin Neg (Negative) 08/13/20 14:45 Urine Urobilinogen 2.0 mg/dL (<2.0) 08/13/20 14:45 Ur Leukocyte Esterase Neg (Negative) 08/13/20 14:45 Urine WBC (Auto) 2.0 /HPF (0.0-6.0) 08/13/20 14:45 Urine RBC (Auto) 3.0 /HPF (0.0-6.0) 08/13/20 14:45 U Epithel Cells (Auto) < 1.0 /HPF (0-13.0) 08/13/20 14:45 Hyaline Casts 1 /LPF 08/13/20 14:45 Urine Mucus Few /HPF 08/13/20 14:45 Blood Type A POSITIVE 08/13/20 16:33 Antibody Screen Negative 08/13/20 16:33 Short CBC 08/13/20 Range/Units Unknown WBC 8.1 (4.5-11.0) K/mm3 Hgb 11.9 (10.1-14.3) gm/dl Hct 39.7 (30.3-42.9) % Plt Count 148 (140-440) K/mm3 BMP 08/13/20 08/13/20 08/13/20 15:44 16:33 Unknown Sodium TNR 134 L 133 L Potassium TNR 5.6 H TNR Chloride TNR 101.3 97.7 L Carbon Dioxide TNR 14 L 14 L BUN TNR 36 H 34 H Creatinine TNR 1.2 1.1 Glucose TNR 280 H 472 H Calcium TNR 8.6 8.4 Cardiac Enzymes 08/13/20 08/13/20 08/13/20 Range/Units 16:33 Unknown Unknown Total Creatine Kinase 64 (30-135) units/L Troponin T 0.038 H D < 0.010 (0.00-0.029) ng/mL Liver Function 08/13/20 08/13/20 08/13/20 Range/Units 15:44 16:33 Unknown Total Bilirubin TNR 3.20 H 2.60 H AST TNR 145 H 68 H ALT TNR 70 H 37 Alkaline Phosphatase TNR 137 H 111 Albumin TNR 3.6 L 3.1 L Urine 08/13/20 Range/Units 14:45 Urine Color Yellow (Yellow) Urine pH 6.0 (5.0-7.0) Ur Specific [place] 1.010 (1.003-1.030) Urine Protein 100 mg/dl (Negative) mg/dL Urine Glucose (UA) >=500 (Negative) mg/dL Microbiology: Microbiology 08/13/20 14:40 Peripheral/Venous Blood Culture - Preliminary Culture in Progress 08/13/20 14:40 Peripheral/Venous Blood Culture - Preliminary Culture in Progress - Imaging and Cardiology Chest x-ray: report reviewed CT scan - chest: report reviewed CT Scan - head: report reviewed Imaging and Cardiology: Chest x-ray Lungs chronic interstitial opacities which appear stable dating back to 07/22/2020 No definite acute pulmonary parenchymal or pleural abnormalities No pneumothorax ET tube at the level of the dalia Recommend retracting [address] angiogram of the chest No CT evidence for pulmonary embolism Bilateral consolidation by atelectasis early pneumonia secondary to aspiration or other causes cannot be excluded Additional findings as above CT head No acute abnormality Chronic age-related changes No change when compared to 07/19/2020 Weinstein/IV: IV Catheter Type [Left INT / Saline Lock Antecubital] IV Catheter Type [Right INT / Saline Lock Forearm] IV Catheter Type [Left Forearm INT / Saline Lock ] IV Catheter Type [Left INT / Saline Lock External Jugular] Assessment and Plan Assessment and plan: Critical care statement The high probability OF a clinically significant sudden or life-threatening deterioration of the cardiorespiratory system and endocrine system required my full and direct attention, intervention and postoperative management. The aggregate critical care time was 40 minutes. The time is in addition to time spent performing reported procedures but includes the followin: Data review and interpretation 2: Patient assessment and monitoring of vital signs 3: Documentation 4:: Medication orders and management Advance Directives: Yes (Full code) VTE prophylaxis?: Chemical Plan of care discussed with patient/family: Yes - Patient Problems (1) Acute respiratory failure with hypoxia Current Visit: Yes Status: Acute Plan to address problem: Patient intubated Patient initiated on IV cefepime and vancomycin for possible aspiration pneumonia Patient initiated on IV steroids Patient initiated on duo nebs [id number] and every 3 hours Print Color Matcher consult requested (2) Sepsis Current Visit: Yes Status: Acute Plan to address problem: Sepsis highly likely Lactic acid is high White blood cell count is normal ID consult requested Procalcitonin requested (3) Paroxysmal atrial fibrillation with rapid ventricular response Current Visit: Yes Status: Acute Plan to address problem: Now heart rate is controlled Patient on Eliquis We will change to Lovenox 60 mg every 12 and hold Eliquis for the time being (4) Aspiration pneumonia Current Visit: Yes Status: Acute Qualifiers: Lung location: lower lobe of lung Plan to address problem: Highly likely aspiration pneumonia Patient initiated on IV cefepime and vancomycin ID consult requested (5) COPD (chronic obstructive pulmonary disease) Current Visit: Yes Status: Chronic Qualifiers: Chronic bronchitis type: mixed simple and mucopurulent Plan to address problem: Duo nebs [id number] IV antibiotics and IV Solu-Medrol initiated (6) CHF (congestive heart failure) Current Visit: No Status: Acute Qualifiers: Heart failure type: systolic Heart failure chronicity: acute Qualified C ode(s): I50.21 - Acute systolic (congestive) heart failure Plan to address problem: BNP is high Blood pressure is low Lasix to be used judiciously (7) Hypotension Current Visit: Yes Status: Acute Plan to address problem: Pressors if necessary Possible Ativan effect (8) T2DM (type 2 diabetes mellitus) Current Visit: Yes Status: Chronic Qualifiers: 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: unspecified 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 insulin use status Plan to address problem: Daughter says there is no diabetes in patient's past medical history Check hemoglobin A1c next Accu-Cheks and high-dose sliding scale coverage next Humalog mix initiated (9) History of pulmonary embolism Current Visit: Yes Status: Chronic Plan to address problem: Patient apparently had PE and DVT in July beginning and was initiated on Eliquis As per daughter Eliquis was stopped because of GI bleed Daughter is a very poor historian Patient on heparin 5000 every 12 (10) Subdural hematoma, chronic Current Visit: Yes Status: Chronic Plan to address problem: Was treated in 2016 with a shantel holes No residual SDH (11) Nonischemic cardiomyopathy Current Visit: Yes Status: Acute Plan to address problem: Diagnosed in 2018 Patient was suggested to have AICD but patient refused Was on LifeVest (12) DVT prophylaxis Current Visit: Yes Status: Acute Plan to address problem: On heparin and GI prophylaxis
[2020-08-13] MEDS ORDERED: VASOPRESSIN 20 UNIT in SODIUM CHLORIDE 0.9% 100 ML IV SCH (22:00)
[2020-08-13] MEDS ORDERED: KETOROLAC 30 MG/1 ML INJ IV PRN (22:12)
[2020-08-13] MEDS ORDERED: LIPASE 10,500/PROTEASE 25,000/AMYLASE 43,750 (UNITS) DR CAP FEEDTUBE PRN (22:12)
[2020-08-13] MEDS ORDERED: ONDANSETRON 4 MG/2 ML INJ IV PRN (22:12)
[2020-08-13] MEDS ORDERED: SODIUM BICARBONATE 325 MG TAB FEEDTUBE PRN (22:12)
[2020-08-13] MEDS ORDERED: METOCLOPRAMIDE 10 MG/2 ML INJ IV PRN (22:12)
[2020-08-13] MEDS ORDERED: SIMPLE SYRUP 15 ML FEEDTUBE PRN ×2 (22:12)
[2020-08-13] MEDS ORDERED: SODIUM CHLORIDE 0.9% 1000 ML 1,000 ML IV SCH (22:15)
[2020-08-13] MEDS ORDERED: IPRATROPIUM/ALBUTEROL SULFATE 3 ML AMPUL.NEB IH PRN (22:17)
[2020-08-13] MEDS ORDERED: VANCOMYCIN PHARMACY TO DOSE IV SCH (23:00)
[2020-08-13] MEDS ORDERED: ALBUTEROL 2.5 MG/3 ML NEBU IH PRN (23:18)
[2020-08-13] MEDS: INSULIN LISPRO 100 UNIT/ML SUB-Q SCH (23:45)
[2020-08-14] MEDS ORDERED: CEFEPIME/NS 2 GM/100 ML 2 GM/100 ML BAG IV SCH
[2020-08-14] MEDS: methylPREDNISolone Sod Succinate 40 MG/1 ML INJ IV SCH ×4 (00:11→21:55)
[2020-08-14] MEDS ORDERED: LORazepam 2 MG/ML VIAL IV ONE (00:17)
[2020-08-14] MEDS: INSULIN LISPRO 100 UNIT/ML SUB-Q SCH ×4 (01:00→21:42)
[2020-08-14] MEDS ORDERED: VANCOMYCIN 1,250 MG in SODIUM CHLORIDE 0.9% 250ML 250 ML IV ONE (01:00)
[2020-08-14 02:42] LABS: Prealbumin 0.142 g/L (0.200-0.400)
--- NOTE | 2020-08-14 02:49 | XRay Report ---
CHEST 1 VIEW 08/14/2020 2:06 AM INDICATION / CLINICAL INFORMATION: follow up respiratory failure. COMPARISON: 08/13/2020 FINDINGS: SUPPORT DEVICES: Unchanged. HEART / MEDIASTINUM: Unchanged LUNGS / PLEURA: Mild worsening in bilateral pulmonary opacities. No pneumothorax. ADDITIONAL FINDINGS: No significant additional findings. IMPRESSION: 1. Mild interval worsening Signer Name: Zac Lang MD Signed: 08/14/2020 2:44 AM Workstation Name: [id number]
[2020-08-14] MEDS ORDERED: DEXTROSE 50% IN WATER (25GM) 50 ML SYRINGE IV ONE (05:43)
--- NOTE | 2020-08-14 07:43 | Consultation ---
History of Present Illness - Reason for Consult Consult date: 08/14/20 sepsis, aspiration pneumonia Requesting physician: SYBIL PEREZ - History of Present Illness 80 years old female with history of CHF, diabetes mellitus, COPD, hypertension, previous pulmonary embolism, A. fib, recent COVID-19 pneumonia with hypoxia admitted to [facility] from 07/19/2020 to 07/24/2020, treated with remdesivir and Decadron. Patient noted to have bilateral DVTs started on heparin drip (discharged on eliquis) and KATHY which improved. Patient was discharged without oxygen as her O2 sats were fine upon ambulation. Readmitted on secondary to worsening shortness of breath. EMS evaluation noted O2 sats down to 70s. Patient coded while attempting to place patient on CPAP. Experienced ventricular tachycardia, received IV epinephrine, amiodarone and was defibrillated following ACLS protocol. Patient returned to spontaneous circulation. Patient was intubated on the field. On arrival, temperature 95.5, HR 104, RR 18, O2 sat 96%, BP 127/67, blood pressure dropped to 79/42. Patient currently on pressors. Initial WBC 8.1. Hemoglobin 11.4. Platelets 148. Lactate 6.9. D-dimer 8048. AST 70. ALT 137. Urinalysis negative. Chest x- ray unremarkable. CT chest shows bilateral consolidations no pulmonary embolism. CT of the head unremarkable. Review of Systems: Unable to obtain patient is on the ventilator Medications and Allergies Allergies Allergy/AdvReac Type Severity Reaction Status Date / Time ramipril Allergy Unknown Verified 06/15/18 12:45 Home Medications Medication Instructions Recorded Confirmed Last Taken Type Aspirin [Aspirin BABY CHEW TAB] 81 mg PO DAILY 03/14/18 07/23/20 Unknown History Carvedilol [Coreg] 3.125 mg PO DAILY 03/14/18 07/23/20 Unknown History Docusate Sodium [Stool Softener] 100 mg PO DAILY 03/14/18 07/23/20 Unknown History Spironolactone 25 mg PO DAILY 03/14/18 07/23/20 Unknown History Pantoprazole [Protonix TAB] 40 mg PO QDAY #30 tablet 06/18/18 07/23/20 Unknown Rx polyethylene glycoL 3350 [Miralax 17 gm PO BID PRN #20 powd.pack 06/18/18 07/23/20 Unknown Rx 3350] Antacid [Alum-Mag Hydrox-Simeth 15 ml PO Q4H PRN oral.liqd 07/24/20 Unknown Rx [id number]/[id number]] Apixaban [Eliquis] 2.5 mg PO Q12HR #60 tablet 07/24/20 Unknown Rx Ascorbic Acid [Vitamin C] 500 mg PO DAILY #30 tablet 07/24/20 Unknown Rx Zinc Sulfate 220 mg PO QDAY #30 capsule 07/24/20 Unknown Rx dexAMETHasone [Dexamethasone] 6 mg PO DAILY #6 tablet 07/24/20 Unknown Rx traMADoL [Ultram 50 MG tab] 50 mg PO Q4H PRN #6 tablet 07/24/20 Unknown Rx Active Meds: Active Medications Acetaminophen (Acetaminophen 325 Mg/10.15 Ml Oral Liqd Unit Dose) 650 mg PO Q6H PRN PRN Reason: Pain, Mild (1-3) Albuterol (Albuterol 2.5 Mg/3 Ml Nebu) 2.5 mg IH Q4HRT PRN PRN Reason: Shortness Of Breath Albuterol/Ipratropium (Ipratropium/Albuterol Sulfate 3 Ml Ampul.Neb) 1 ampul IH QIDRT ALEXANDER Lipase/Protease/Amylase (Lipase 10,500/Protease 25,000/Amylase 43,750 (Units) Dr Cap) 1 each FEEDTUBE PRN PRN PRN Reason: For Clogged Feeding Tube Famotidine (Famotidine 20 Mg/2 Ml Inj) 20 mg IV DAILY ALEXANDER Fentanyl (Fentanyl 100 Mcg/2 Ml Inj) 50 mcg IV Q10MIN PRN PRN Reason: ANALGESIA Last Admin: 08/13/20 18:36 Dose: 50 mcg Documented by: Hydrophilic Ointment (Lip Therapy Vaseline) 1 applic TP Q2HR PRN PRN Reason: Dry Lips Fentanyl Citrate (Fentanyl Drip Premix) 2,000 mcg in 100 mls @ 2.88 mls/hr IV TITR ALEXANDER; Protocol Last Titration: 08/13/20 20:00 Dose: 0 mcg/kg/hr, 0 mls/hr Documented by: Lorazepam 100 mg/ Sodium Chloride/ Miscellaneous Information 100 mls @ 1 mls/hr IV TITR ALEXANDER; Protocol Vasopressin 20 unit/ Sodium (Chloride) 101 mls @ 9.09 mls/hr IV TITR ALEXANDRE; Protocol Sodium Chloride (Nacl 0.9% 1000 Ml) 1,000 mls @ 42 mls/hr IV DIRECT [facility] Last Admin: 08/14/20 00:02 Dose: 42 mls/hr Documented by: Vancomycin HCl (Vancomycin/Ns 1 Gm/250 Ml) 1 gm in 250 mls @ 250 mls/hr IV Q24H ALEXANDER Cefepime HCl (Cefepime/Ns 2 Gm/100 Ml) 2 gm in 100 mls @ 200 mls/hr IV Q12H [facility]; Protocol Insulin Glargine (Insulin Glargine 100 Units/Ml) 15 units SUB-Q QHS ALEXANDER Insulin Human Lispro (Insulin Lispro 100 Unit/Ml) 0 unit SUB-Q Q4HR [facility]; Protocol Last Admin: 08/14/20 01:00 Dose: Not Given Documented by: Ketorolac Tromethamine (Ketorolac 30 Mg/1 Ml Inj) 15 mg IV Q6H PRN PRN Reason: Pain, Mild (1-3) Stop: 08/18/20 22:11 Lorazepam (Lorazepam 2 Mg/Ml Vial) 2 mg IV Q10MIN PRN PRN Reason: Agitation Methylprednisolone Sodium Succinate (Methylprednisolone Sod Succinate 40 Mg/1 Ml Inj) 80 mg IV Q8HR [facility] Last Admin: 08/14/20 05:43 Dose: 80 mg Documented by: Metoclopramide HCl (Metoclopramide 10 Mg/2 Ml Inj) 10 mg IV Q6H PRN PRN Reason: Nausea And Vomiting Multi-Ingred Cream/Lotion/Oil/Oint (Mineral Oil/Petrolatum, White Ophth Oint 3.5 Gm) 1 applic OU Q4HR PRN PRN Reason: Dry Eye(s) Ondansetron HCl (Ondansetron 4 Mg/2 Ml Inj) 4 mg IV Q8H PRN PRN Reason: Nausea And Vomiting Simple Syrup (Simple Syrup 15 Ml) 15 ml FEEDTUBE PRN PRN PRN Reason: Hypoglycemia Simple Syrup (Simple Syrup 15 Ml) 30 ml FEEDTUBE PRN PRN PRN Reason: Hypoglycemia Sodium Bicarbonate (Sodium Bicarbonate 325 Mg Tab) 325 mg FEEDTUBE PRN PRN PRN Reason: For Clogged Feeding Tube Sodium Chloride (Sodium Chloride 0.9% 10 Ml Flush Syringe) 10 ml IV BID [facility] Sodium Chloride (Sodium Chloride 0.9% 10 Ml Flush Syringe) 10 ml IV PRN PRN PRN Reason: LINE FLUSH Last Admin: 08/14/20 00:06 Dose: 10 ml Documented by: Physical Examination - Physical Exam Narrative exam: Physical exam deferred to minimize COVID-19 transmission during pandemic. ER and internal medicine physical examination notes reviewed. - Constitutional Vitals: Vital Signs Temp Pulse Resp BP Pulse Ox 97.0 F L 103 H 18 108/52 96 08/14/20 04:00 08/14/20 06:11 08/14/20 06:11 08/14/20 06:11 08/14/20 06:11 Temperature -Last 24 Hours Temperature 97.0 F Temperature 97.1 F Temperature 97.1 F Temperature 95.5 F Results - Labs CBC & Chem 7: 08/14/20 07:31 08/13/20 Unknown Labs: Abnormal lab results 08/13/20 08/13/20 08/13/20 Range/Units 12:52 13:46 13:55 MCV (79-97) fl RDW (13.2-15.2) % Monocytes % (Manual) (0.0-7.3) % Basophils % (Manual) (0.0-1.8) % Basophils # (Manual) (0.0-0.1) K/mm3 APTT (24.2-36.6) Sec. D-Dimer (0-234) ng/mlDDU ABG pH 7.126 L* (7.350-7.450) pH Units POC ABG pCO2 (32.0-48.0) mmHg POC ABG pO2 (83-108) mmHg ABG pO2 375.9 H (80.0-90.0) mm Hg ABG HCO3 10.7 L (20.0-26.0) mmol/L ABG O2 Saturation 99.5 H (95.0-99.0) % ABG Base Excess -17.4 L (-2.0-3.0) mmol/L ABG Hemoglobin 11.5 L (12.0-16.0) gm/dl ABG Oxyhemoglobin (94-98) ABG Sodium (136.0-145.0) mmol/L ABG Potassium (3.40-4.50) mmol/L ABG Chloride (98-107) mmol/L ABG Glucose (65-95) mg/dL Sodium (137-145) mmol/L Potassium (3.6-5.0) mmol/L Chloride (98-107) mmol/L Carbon Dioxide (22-30) mmol/L BUN (7-17) mg/dL Glucose (65-100) mg/dL POC Glucose < 10 L 126 H (70-105) mg/dL Lactic Acid (0.7-2.0) mmol/L Total Bilirubin (0.1-1.2) mg/dL AST (5-40) units/L ALT (7-56) units/L Alkaline Phosphatase (35-129) units/L Troponin T (0.00-0.029) ng/mL NT-Pro-B Natriuret Pep (0-900) pg/mL Albumin (3.9-5) g/dL Prealbumin (0.200-0.400) g/L HDL Cholesterol (40-59) mg/dL Arterial Blood Glucose (65-95) mg/dL 08/13/20 08/13/20 08/13/20 Range/Units 15:44 16:33 16:33 MCV (79-97) fl RDW (13.2-15.2) % Monocytes % (Manual) (0.0-7.3) % Basophils % (Manual) (0.0-1.8) % Basophils # (Manual) (0.0-0.1) K/mm3 APTT (24.2-36.6) Sec. D-Dimer (0-234) ng/mlDDU ABG pH (7.350-7.450) pH Units POC ABG pCO2 (32.0-48.0) mmHg POC ABG pO2 (83-108) mmHg ABG pO2 (80.0-90.0) mm Hg ABG HCO3 (20.0-26.0) mmol/L ABG O2 Saturation (95.0-99.0) % ABG Base Excess (-2.0-3.0) mmol/L ABG Hemoglobin (12.0-16.0) gm/dl ABG Oxyhemoglobin (94-98) ABG Sodium (136.0-145.0) mmol/L ABG Potassium (3.40-4.50) mmol/L ABG Chloride (98-107) mmol/L ABG Glucose (65-95) mg/dL Sodium 134 L (137-145) mmol/L Potassium 5.6 H (3.6-5.0) mmol/L Chloride (98-107) mmol/L Carbon Dioxide 14 L (22-30) mmol/L BUN 36 H (7-17) mg/dL Glucose 280 H (65-100) mg/dL POC Glucose (70-105) mg/dL Lactic Acid 6.80 H* (0.7-2.0) mmol/L Total Bilirubin 3.20 H (0.1-1.2) mg/dL AST 145 H (5-40) units/L ALT 70 H (7-56) units/L Alkaline Phosphatase 137 H (35-129) units/L Troponin T 0.038 H D (0.00-0.029) ng/mL NT-Pro-B Natriuret Pep (0-900) pg/mL Albumin 3.6 L (3.9-5) g/dL Prealbumin (0.200-0.400) g/L HDL Cholesterol 72 H (40-59) mg/dL Arterial Blood Glucose (65-95) mg/dL 08/13/20 08/13/20 08/13/20 Range/Units 17:48 18:59 20:24 MCV (79-97) fl RDW (13.2-15.2) % Monocytes % (Manual) (0.0-7.3) % Basophils % (Manual) (0.0-1.8) % Basophils # (Manual) (0.0-0.1) K/mm3 APTT (24.2-36.6) Sec. D-Dimer (0-234) ng/mlDDU ABG pH (7.350-7.450) pH Units POC ABG pCO2 (32.0-48.0) mmHg POC ABG pO2 (83-108) mmHg ABG pO2 (80.0-90.0) mm Hg ABG HCO3 (20.0-26.0) mmol/L ABG O2 Saturation (95.0-99.0) % ABG Base Excess (-2.0-3.0) mmol/L ABG Hemoglobin (12.0-16.0) gm/dl ABG Oxyhemoglobin (94-98) ABG Sodium (136.0-145.0) mmol/L ABG Potassium (3.40-4.50) mmol/L ABG Chloride (98-107) mmol/L ABG Glucose (65-95) mg/dL Sodium (137-145) mmol/L Potassium (3.6-5.0) mmol/L Chloride (98-107) mmol/L Carbon Dioxide (22-30) mmol/L BUN (7-17) mg/dL Glucose (65-100) mg/dL POC Glucose 198 H 166 H (70-105) mg/dL Lactic Acid 6.90 H* (0.7-2.0) mmol/L Total Bilirubin (0.1-1.2) mg/dL AST (5-40) units/L ALT (7-56) units/L Alkaline Phosphatase (35-129) units/L Troponin T (0.00-0.029) ng/mL NT-Pro-B Natriuret Pep (0-900) pg/mL Albumin (3.9-5) g/dL Prealbumin (0.200-0.400) g/L HDL Cholesterol (40-59) mg/dL Arterial Blood Glucose (65-95) mg/dL 08/13/20 08/13/20 08/13/20 Range/Units 23:37 23:50 23:50 MCV (79-97) fl RDW (13.2-15.2) % Monocytes % (Manual) (0.0-7.3) % Basophils % (Manual) (0.0-1.8) % Basophils # (Manual) (0.0-0.1) K/mm3 APTT (24.2-36.6) Sec. D-Dimer (0-234) ng/mlDDU ABG pH (7.350-7.450) pH Units POC ABG pCO2 (32.0-48.0) mmHg POC ABG pO2 (83-108) mmHg ABG pO2 (80.0-90.0) mm Hg ABG HCO3 (20.0-26.0) mmol/L ABG O2 Saturation (95.0-99.0) % ABG Base Excess (-2.0-3.0) mmol/L ABG Hemoglobin (12.0-16.0) gm/dl ABG Oxyhemoglobin (94-98) ABG Sodium (136.0-145.0) mmol/L ABG Potassium (3.40-4.50) mmol/L ABG Chloride (98-107) mmol/L ABG Glucose (65-95) mg/dL Sodium (137-145) mmol/L Potassium (3.6-5.0) mmol/L Chloride (98-107) mmol/L Carbon Dioxide (22-30) mmol/L BUN (7-17) mg/dL Glucose (65-100) mg/dL POC Glucose 40 L (70-105) mg/dL Lactic Acid 3.20 H* (0.7-2.0) mmol/L Total Bilirubin (0.1-1.2) mg/dL AST (5-40) units/L ALT (7-56) units/L Alkaline Phosphatase (35-129) units/L Troponin T (0.00-0.029) ng/mL NT-Pro-B Natriuret Pep (0-900) pg/mL Albumin (3.9-5) g/dL Prealbumin 0.142 L (0.200-0.400) g/L HDL Cholesterol (40-59) mg/dL Arterial Blood Glucose (65-95) mg/dL 08/13/20 08/13/20 08/13/20 Range/Units 23:50 Unknown Unknown MCV 99 H (79-97) fl RDW 19.6 H (13.2-15.2) % Monocytes % (Manual) 9.0 H (0.0-7.3) % Basophils % (Manual) 2.0 H (0.0-1.8) % Basophils # (Manual) 0.2 H (0.0-0.1) K/mm3 APTT (24.2-36.6) Sec. D-Dimer (0-234) ng/mlDDU ABG pH (7.350-7.450) pH Units POC ABG pCO2 (32.0-48.0) mmHg POC ABG pO2 (83-108) mmHg ABG pO2 (80.0-90.0) mm Hg ABG HCO3 (20.0-26.0) mmol/L ABG O2 Saturation (95.0-99.0) % ABG Base Excess (-2.0-3.0) mmol/L ABG Hemoglobin (12.0-16.0) gm/dl ABG Oxyhemoglobin (94-98) ABG Sodium (136.0-145.0) mmol/L ABG Potassium (3.40-4.50) mmol/L ABG Chloride (98-107) mmol/L ABG Glucose (65-95) mg/dL Sodium (137-145) mmol/L Potassium (3.6-5.0) mmol/L Chloride (98-107) mmol/L Carbon Dioxide (22-30) mmol/L BUN (7-17) mg/dL Glucose 50 L (65-100) mg/dL POC Glucose (70-105) mg/dL Lactic Acid (0.7-2.0) mmol/L Total Bilirubin (0.1-1.2) mg/dL AST (5-40) units/L ALT (7-56) units/L Alkaline Phosphatase (35-129) units/L Troponin T (0.00-0.029) ng/mL NT-Pro-B Natriuret Pep > 10175 H (0-900) pg/mL Albumin (3.9-5) g/dL Prealbumin (0.200-0.400) g/L HDL Cholesterol (40-59) mg/dL Arterial Blood Glucose (65-95) mg/dL 08/13/20 08/13/20 08/14/20 Range/Units Unknown Unknown 04:51 MCV (79-97) fl RDW (13.2-15.2) % Monocytes % (Manual) (0.0-7.3) % Basophils % (Manual) (0.0-1.8) % Basophils # (Manual) (0.0-0.1) K/mm3 APTT 45.4 H (24.2-36.6) Sec. D-Dimer 8048.70 H (0-234) ng/mlDDU ABG pH (7.350-7.450) pH Units POC ABG pCO2 30.2 L (32.0-48.0) mmHg POC ABG pO2 63.8 L (83-108) mmHg ABG pO2 (80.0-90.0) mm Hg ABG HCO3 (20.0-26.0) mmol/L ABG O2 Saturation (95.0-99.0) % ABG Base Excess (-2.0-3.0) mmol/L ABG Hemoglobin (12.0-16.0) gm/dl ABG Oxyhemoglobin 91.2 L (94-98) ABG Sodium 133.7 L (136.0-145.0) mmol/L ABG Potassium 4.9 H (3.40-4.50) mmol/L ABG Chloride 108.0 H (98-107) mmol/L ABG Glucose 58 L (65-95) mg/dL Sodium 133 L (137-145) mmol/L Potassium (3.6-5.0) mmol/L Chloride 97.7 L (98-107) mmol/L Carbon Dioxide 14 L (22-30) mmol/L BUN 34 H (7-17) mg/dL Glucose 472 H (65-100) mg/dL POC Glucose (70-105) mg/dL Lactic Acid (0.7-2.0) mmol/L Total Bilirubin 2.60 H (0.1-1.2) mg/dL AST 68 H (5-40) units/L ALT (7-56) units/L Alkaline Phosphatase (35-129) units/L Troponin T (0.00-0.029) ng/mL NT-Pro-B Natriuret Pep (0-900) pg/mL Albumin 3.1 L (3.9-5) g/dL Prealbumin (0.200-0.400) g/L HDL Cholesterol (40-59) mg/dL Arterial Blood Glucose 58 L (65-95) mg/dL 08/14/20 Range/Units 05:10 MCV (79-97) fl RDW (13.2-15.2) % Monocytes % (Manual) (0.0-7.3) % Basophils % (Manual) (0.0-1.8) % Basophils # (Manual) (0.0-0.1) K/mm3 APTT (24.2-36.6) Sec. D-Dimer (0-234) ng/mlDDU ABG pH (7.350-7.450) pH Units POC ABG pCO2 (32.0-48.0) mmHg POC ABG pO2 (83-108) mmHg ABG pO2 (80.0-90.0) mm Hg ABG HCO3 (20.0-26.0) mmol/L ABG O2 Saturation (95.0-99.0) % ABG Base Excess (-2.0-3.0) mmol/L ABG Hemoglobin (12.0-16.0) gm/dl ABG Oxyhemoglobin (94-98) ABG Sodium (136.0-145.0) mmol/L ABG Potassium (3.40-4.50) mmol/L ABG Chloride (98-107) mmol/L ABG Glucose (65-95) mg/dL Sodium (137-145) mmol/L Potassium (3.6-5.0) mmol/L Chloride (98-107) mmol/L Carbon Dioxide (22-30) mmol/L BUN (7-17) mg/dL Glucose (65-100) mg/dL POC Glucose 61 L (70-105) mg/dL Lactic Acid (0.7-2.0) mmol/L Total Bilirubin (0.1-1.2) mg/dL AST (5-40) units/L ALT (7-56) units/L Alkaline Phosphatase (35-129) units/L Troponin T (0.00-0.029) ng/mL NT-Pro-B Natriuret Pep (0-900) pg/mL Albumin (3.9-5) g/dL Prealbumin (0.200-0.400) g/L HDL Cholesterol (40-59) mg/dL Arterial Blood Glucose (65-95) mg/dL Assessment and Plan Cultures: Blood culture pending SARS CoV2 PCR pending Assessment: 80 years old female with history of CHF, diabetes mellitus, COPD, hypertension, previous pulmonary embolism, A. fib, recent Covid pneumonia with hypoxia admitted to [facility] from 07/19/2020 2 07/24/2020, treated with remdesivir and Decadron found to have bilateral DVTs and AKA, is now readmitted on 08/13/2020 secondary to acute respiratory distress, experienced cardiac arrest with V. tach, patient underwent ACLS was intubated on the field: #Severe sepsis septic shock versus cardiogenic shock/out of hospital cardiac arrest: Present on admission with hypothermia, tachycardia, hypotension, elevated lactate likely secondary to recent out of hospital cardiac arrest. Etiology unclear likely related to recent COVID-19 pneumonia with cytokine storm. Urinalysis negative. #Critical COVID pneumonia versus bacterial pneumonia: Likely cytokine storm post COVID. The possibility of bacterial aspiration pneumonia is also in the differential. CT chest shows bilateral infiltrates. No pulmonary embolism seen. #Acute hypoxemic respiratory failure: Patient intubated on the field during cardiac arrest and resuscitation. #Elevated LFTs: from COVID/shock #KATHY: from cardiac arrest, shock #Recent bilateral leg DVT: #Acute encephalopathy: Post cardiac arrest ? Concern of anoxic brain injury Recommendations: -Follow-up SARS-CoV-2 PCR, patient was positive in early July, if negative stop isolation -Follow-up blood cultures -Continue cefepime renally adjusted and vancomycin with PK consult for now -Check MRSA PCR -Obtain respiratory cultures -Obtain transthoracic echo -Continue steroids for now -No indication for remdesivir, patient received a course of remdesivir during recent admission, currently outside of therapeutic window -Monitor inflammatory markers - ferritin, Ddimer, CRP, LDH -Continue anticoagulation per System Protocol -Prone positioning as possible All laboratory, cultures and imaging were reviewed. Overall prognosis guarded Will follow Izzy Ortiz MD Infectious Diseases [employer] [facility] M [phone]
[2020-08-14 07:49] LABS: Hematocrit 33.9 % (30.3-42.9); Hemoglobin 11.1 gm/dl (10.1-14.3); Mean Corpuscular HGB Conc 33 % (30-34); Mean Corpuscular Volume 91 fl (79-97); Platelet Count 133 K/mm3 (140-440); Red Blood Count 3.73 M/mm3 (3.65-5.03); Red Cell Distribution Width 18.4 % (13.2-15.2)
[2020-08-14 08:11] LABS: Albumin 3.3 g/dL (3.9-5); Calcium 9.1 mg/dL (8.4-10.2)
[2020-08-14 08:58] LABS: Total Cells Counted 100
[2020-08-14 08:59] LABS: Anisocytosis 1+; Ovalocytes 1+; Poikilocytosis 1+; Schistocytes Rare
[2020-08-14 09:00] LABS: Burr Cells Few; Platelet Estimate Consistent w Auto
[2020-08-14] MEDS: IPRATROPIUM/ALBUTEROL SULFATE 3 ML AMPUL.NEB IH SCH ×4 (09:11→21:20)
[2020-08-14] MEDS: FAMOTIDINE 20 MG/2 ML INJ IV SCH (10:09)
[2020-08-14] MEDS: CEFEPIME/NS 2 GM/100 ML 2 GM/100 ML BAG IV SCH ×2 (10:09→21:56)
[2020-08-14] MEDS ORDERED: DEXTROSE 10% IN WATER 1,000 ML IV SCH (11:00)
[2020-08-14] MEDS: ENOXAPARIN 60 MG/0.6 ML INJ SUB-Q SCH ×2 (11:23→21:54)
[2020-08-14 11:26] LABS: C-Reactive Protein 4.7 mg/dL (0.00-1.30)
--- NOTE | 2020-08-14 13:40 | Consultation ---
History of Present Illness Consult date: 08/14/20 Requesting physician: SYBIL PEREZ Reason for consult: hypoxemia, other (cardiac arrest with ROSC) History of present illness: 80 y/o female who was brought in the ED last night via EMS for out of hospital cardiac arrest. Called for respiratory distress and patient coded when EMS attempted to place patient on CPAP. Intubated in the field and had ROSC there. This am is awake and alert. Still mildly hypoxic but on minimal vent support. She was recently admitted to [facility] earlier this month wit COVID pneumonia. She was not discharged on oxygen but did require anticoagulation as she had bilateral DVT's. She has been placed on COVID precautions and repeat COVID test is pending. Past History Past Medical History: other (Please See [facility] along with prior hospital s mary for details) Medications and Allergies Allergies Allergy/AdvReac Type Severity Reaction Status Date / Time ramipril Allergy Unknown Verified 06/15/18 12:45 Home Medications Medication Instructions Recorded Confirmed Last Taken Type Aspirin [Aspirin BABY CHEW TAB] 81 mg PO DAILY 03/14/18 07/23/20 Unknown History Carvedilol [Coreg] 3.125 mg PO DAILY 03/14/18 07/23/20 Unknown History Docusate Sodium [Stool Softener] 100 mg PO DAILY 03/14/18 07/23/20 Unknown History Spironolactone 25 mg PO DAILY 03/14/18 07/23/20 Unknown History Pantoprazole [Protonix TAB] 40 mg PO QDAY #30 tablet 06/18/18 07/23/20 Unknown Rx polyethylene glycoL 3350 [Miralax 17 gm PO BID PRN #20 powd.pack 06/18/18 07/23/20 Unknown Rx 3350] Antacid [Alum-Mag Hydrox-Simeth 15 ml PO Q4H PRN oral.liqd 07/24/20 Unknown Rx [phone]/5Ml] Apixaban [Eliquis] 2.5 mg PO Q12HR #60 tablet 07/24/20 Unknown Rx Ascorbic Acid [Vitamin C] 500 mg PO DAILY #30 tablet 07/24/20 Unknown Rx Zinc Sulfate 220 mg PO QDAY #30 capsule 07/24/20 Unknown Rx dexAMETHasone [Dexamethasone] 6 mg PO DAILY #6 tablet 07/24/20 Unknown Rx traMADoL [Ultram 50 MG tab] 50 mg PO Q4H PRN #6 tablet 07/24/20 Unknown Rx Active Meds: Active Medications Acetaminophen (Acetaminophen 325 Mg/10.15 Ml Oral Liqd Unit Dose) 650 mg PO Q6H PRN PRN Reason: Pain, Mild (1-3) Albuterol (Albuterol 2.5 Mg/3 Ml Nebu) 2.5 mg IH Q4HRT PRN PRN Reason: Shortness Of Breath Albuterol/Ipratropium (Ipratropium/Albuterol Sulfate 3 Ml Ampul.Neb) 1 ampul IH QIDRT [facility] Last Admin: 08/14/20 12:17 Dose: 1 ampul Documented by: Lipase/Protease/Amylase (Lipase 10,500/Protease 25,000/Amylase 43,750 (Units) Dr Cap) 1 each FEEDTUBE PRN PRN PRN Reason: For Clogged Feeding Tube Enoxaparin Sodium (Enoxaparin 60 Mg/0.6 Ml Inj) 60 mg SUB-Q Q12HR [facility] Last Admin: 08/14/20 11:23 Dose: 60 mg Documented by: Famotidine (Famotidine 20 Mg/2 Ml Inj) 20 mg IV DAILY [facility] Last Admin: 08/14/20 10:09 Dose: 20 mg Documented by: Fentanyl (Fentanyl 100 Mcg/2 Ml Inj) 50 mcg IV Q10MIN PRN PRN Reason: ANALGESIA Last Admin: 08/13/20 18:36 Dose: 50 mcg Documented by: Hydrophilic Ointment (Lip Therapy Vaseline) 1 applic TP Q2HR PRN PRN Reason: Dry Lips Fentanyl Citrate (Fentanyl Drip Premix) 2,000 mcg in 100 mls @ 2.88 mls/hr IV TITR [facility]; Protocol Last Titration: 08/13/20 20:00 Dose: 0 mcg/kg/hr, 0 mls/hr Documented by: Lorazepam 100 mg/ Sodium Chloride/ Miscellaneous Information 100 mls @ 1 mls/hr IV TITR [facility]; Protocol Vasopressin 20 unit/ Sodium (Chloride) 101 mls @ 9.09 mls/hr IV TITR [facility]; Protocol Vancomycin HCl (Vancomycin/Ns 1 Gm/250 Ml) 1 gm in 250 mls @ 250 mls/hr IV Q24H [facility] Cefepime HCl (Cefepime/Ns 2 Gm/100 Ml) 2 gm in 100 mls @ 200 mls/hr IV Q12H [facility]; Protocol Last Admin: 08/14/20 10:09 Dose: 200 mls/hr Documented by: Dextrose (D10w) 1,000 mls @ 50 mls/hr IV DIRECT [facility] Insulin Glargine (Insulin Glargine 100 Units/Ml) 15 units SUB-Q QHS [facility] Insulin Human Lispro (Insulin Lispro 100 Unit/Ml) 0 unit SUB-Q Q4H [facility]; Protocol Last Admin: 08/14/20 13:25 Dose: Not Given Documented by: Ketorolac Tromethamine (Ketorolac 30 Mg/1 Ml Inj) 15 mg IV Q6H PRN PRN Reason: Pain, Mild (1-3) Stop: 08/18/20 22:11 Lorazepam (Lorazepam 2 Mg/Ml Vial) 2 mg IV Q10MIN PRN PRN Reason: Agitation Methylprednisolone Sodium Succinate (Methylprednisolone Sod Succinate 40 Mg/1 Ml Inj) 80 mg IV Q8HR [facility] Last Admin: 08/14/20 13:23 Dose: 80 mg Documented by: Metoclopramide HCl (Metoclopramide 10 Mg/2 Ml Inj) 10 mg IV Q6H PRN PRN Reason: Nausea And Vomiting Multi-Ingred Cream/Lotion/Oil/Oint (Mineral Oil/Petrolatum, White Ophth Oint 3.5 Gm) 1 applic OU Q4HR PRN PRN Reason: Dry Eye(s) Ondansetron HCl (Ondansetron 4 Mg/2 Ml Inj) 4 mg IV Q8H PRN PRN Reason: Nausea And Vomiting Simple Syrup (Simple Syrup 15 Ml) 15 ml FEEDTUBE PRN PRN PRN Reason: Hypoglycemia Simple Syrup (Simple Syrup 15 Ml) 30 ml FEEDTUBE PRN PRN PRN Reason: Hypoglycemia Sodium Bicarbonate (Sodium Bicarbonate 325 Mg Tab) 325 mg FEEDTUBE PRN PRN PRN Reason: For Clogged Feeding Tube Sodium Chloride (Sodium Chloride 0.9% 10 Ml Flush Syringe) 10 ml IV BID [facility] Last Admin: 08/14/20 10:10 Dose: 10 ml Documented by: Sodium Chloride (Sodium Chloride 0.9% 10 Ml Flush Syringe) 10 ml IV PRN PRN PRN Reason: LINE FLUSH Last Admin: 08/14/20 00:06 Dose: 10 ml Documented by: Review of Systems ROS unobtainable: due to endotracheal tube Physical Examination Vital signs: Vital Signs Pulse Resp BP Pulse Ox 104 H 18 127/67 96 08/13/20 12:47 08/13/20 12:47 08/13/20 12:47 08/13/20 12:47 Results - Laboratory Findings CBC and BMP: 08/14/20 07:31 08/14/20 07:31 ABG ABG pH 7.423 (7.320-7.450) 08/14/20 04:51 POC ABG pCO2 30.2 mmHg (32.0-48.0) L 08/14/20 04:51 ABG pCO2 33.1 mm Hg 08/13/20 13:55 POC ABG pO2 63.8 mmHg (83-108) L 08/14/20 04:51 ABG pO2 375.9 mm Hg (80.0-90.0) H 08/13/20 13:55 POC ABG HCO3 19.3 08/14/20 04:51 ABG O2 Saturation 99.5 % (95.0-99.0) H 08/13/20 13:55 PT/INR, D-dimer D-Dimer 8048.70 ng/mlDDU (0-234) H 08/13/20 Unknown Abnormal lab findings: Abnormal Labs 08/13/20 08/13/20 08/13/20 12:52 13:46 13:55 MCV RDW Plt Count Seg Neuts % (Manual) Lymphocytes % (Manual) Monocytes % (Manual) Basophils % (Manual) Lymphocytes # (Manual) Basophils # (Manual) APTT D-Dimer ABG pH 7.126 L* POC ABG pCO2 POC ABG pO2 ABG pO2 375.9 H ABG HCO3 10.7 L ABG O2 Saturation 99.5 H ABG Base Excess -17.4 L ABG Hemoglobin 11.5 L ABG Oxyhemoglobin ABG Sodium ABG Potassium ABG Chloride ABG Glucose Sodium Potassium Chloride Carbon Dioxide BUN Glucose POC Glucose < 10 L 126 H Lactic Acid Ferritin Total Bilirubin AST ALT Alkaline Phosphatase Lactate Dehydrogenase Troponin T C-Reactive Protein NT-Pro-B Natriuret Pep Albumin Prealbumin HDL Cholesterol Arterial Blood Glucose 08/13/20 08/13/20 08/13/20 15:44 16:33 16:33 MCV RDW Plt Count Seg Neuts % (Manual) Lymphocytes % (Manual) Monocytes % (Manual) Basophils % (Manual) Lymphocytes # (Manual) Basophils # (Manual) APTT D-Dimer ABG pH POC ABG pCO2 POC ABG pO2 ABG pO2 ABG HCO3 ABG O2 Saturation ABG Base Excess ABG Hemoglobin ABG Oxyhemoglobin ABG Sodium ABG Potassium ABG Chloride ABG Glucose Sodium 134 L Potassium 5.6 H Chloride Carbon Dioxide 14 L BUN 36 H Glucose 280 H POC Glucose Lactic Acid 6.80 H* Ferritin Total Bilirubin 3.20 H AST 145 H ALT 70 H Alkaline Phosphatase 137 H Lactate Dehydrogenase Troponin T 0.038 H D C-Reactive Protein NT-Pro-B Natriuret Pep Albumin 3.6 L Prealbumin HDL Cholesterol 72 H Arterial Blood Glucose 08/13/20 08/13/20 08/13/20 17:48 18:59 20:24 MCV RDW Plt Count Seg Neuts % (Manual) Lymphocytes % (Manual) Monocytes % (Manual) Basophils % (Manual) Lymphocytes # (Manual) Basophils # (Manual) APTT D-Dimer ABG pH POC ABG pCO2 POC ABG pO2 ABG pO2 ABG HCO3 ABG O2 Saturation ABG Base Excess ABG Hemoglobin ABG Oxyhemoglobin ABG Sodium ABG Potassium ABG Chloride ABG Glucose Sodium Potassium Chloride Carbon Dioxide BUN Glucose POC Glucose 198 H 166 H Lactic Acid 6.90 H* Ferritin Total Bilirubin AST ALT Alkaline Phosphatase Lactate Dehydrogenase Troponin T C-Reactive Protein NT-Pro-B Natriuret Pep Albumin Prealbumin HDL Cholesterol Arterial Blood Glucose 08/13/20 08/13/20 08/13/20 23:37 23:50 23:50 MCV RDW Plt Count Seg Neuts % (Manual) Lymphocytes % (Manual) Monocytes % (Manual) Basophils % (Manual) Lymphocytes # (Manual) Basophils # (Manual) APTT D-Dimer ABG pH POC ABG pCO2 POC ABG pO2 ABG pO2 ABG HCO3 ABG O2 Saturation ABG Base Excess ABG Hemoglobin ABG Oxyhemoglobin ABG Sodium ABG Potassium ABG Chloride ABG Glucose Sodium Potassium Chloride Carbon Dioxide BUN Glucose POC Glucose 40 L Lactic Acid 3.20 H* Ferritin Total Bilirubin AST ALT Alkaline Phosphatase Lactate Dehydrogenase Troponin T C-Reactive Protein NT-Pro-B Natriuret Pep Albumin Prealbumin 0.142 L HDL Cholesterol Arterial Blood Glucose 08/13/20 08/13/20 08/13/20 23:50 Unknown Unknown MCV 99 H RDW 19.6 H Plt Count Seg Neuts % (Manual) Lymphocytes % (Manual) Monocytes % (Manual) 9.0 H Basophils % (Manual) 2.0 H Lymphocytes # (Manual) Basophils # (Manual) 0.2 H APTT D-Dimer ABG pH POC ABG pCO2 POC ABG pO2 ABG pO2 ABG HCO3 ABG O2 Saturation ABG Base Excess ABG Hemoglobin ABG Oxyhemoglobin ABG Sodium ABG Potassium ABG Chloride ABG Glucose Sodium Potassium Chloride Carbon Dioxide BUN Glucose 50 L POC Glucose Lactic Acid Ferritin Total Bilirubin AST ALT Alkaline Phosphatase Lactate Dehydrogenase Troponin T C-Reactive Protein NT-Pro-B Natriuret Pep > 21512 H Albumin Prealbumin HDL Cholesterol Arterial Blood Glucose 08/13/20 08/13/20 08/14/20 Unknown Unknown 04:51 MCV RDW Plt Count Seg Neuts % (Manual) Lymphocytes % (Manual) Monocytes % (Manual) Basophils % (Manual) Lymphocytes # (Manual) Basophils # (Manual) APTT 45.4 H D-Dimer 8048.70 H ABG pH POC ABG pCO2 30.2 L POC ABG pO2 63.8 L ABG pO2 ABG HCO3 ABG O2 Saturation ABG Base Excess ABG Hemoglobin ABG Oxyhemoglobin 91.2 L ABG Sodium 133.7 L ABG Potassium 4.9 H ABG Chloride 108.0 H ABG Glucose 58 L Sodium 133 L Potassium Chloride 97.7 L Carbon Dioxide 14 L BUN 34 H Glucose 472 H POC Glucose Lactic Acid Ferritin Total Bilirubin 2.60 H AST 68 H ALT Alkaline Phosphatase Lactate Dehydrogenase Troponin T C-Reactive Protein NT-Pro-B Natriuret Pep Albumin 3.1 L Prealbumin HDL Cholesterol Arterial Blood Glucose 58 L 08/14/20 08/14/20 08/14/20 05:10 07:31 07:31 MCV RDW 18.4 H Plt Count 133 L Seg Neuts % (Manual) 93.0 H Lymphocytes % (Manual) 3.0 L Monocytes % (Manual) Basophils % (Manual) 2.0 H Lymphocytes # (Manual) 0.2 L Basophils # (Manual) 0.2 H APTT D-Dimer ABG pH POC ABG pCO2 POC ABG pO2 ABG pO2 ABG HCO3 ABG O2 Saturation ABG Base Excess ABG Hemoglobin ABG Oxyhemoglobin ABG Sodium ABG Potassium ABG Chloride ABG Glucose Sodium Potassium 5.1 H Chloride Carbon Dioxide BUN 43 H Glucose 119 H POC Glucose 61 L Lactic Acid Ferritin Total Bilirubin 2.40 H AST 157 H ALT 98 H Alkaline Phosphatase Lactate Dehydrogenase Troponin T C-Reactive Protein NT-Pro-B Natriuret Pep Albumin 3.3 L Prealbumin HDL Cholesterol Arterial Blood Glucose 08/14/20 08/14/20 10:30 10:30 MCV RDW Plt Count Seg Neuts % (Manual) Lymphocytes % (Manual) Monocytes % (Manual) Basophils % (Manual) Lymphocytes # (Manual) Basophils # (Manual) APTT D-Dimer ABG pH POC ABG pCO2 POC ABG pO2 ABG pO2 ABG HCO3 ABG O2 Saturation ABG Base Excess ABG Hemoglobin ABG Oxyhemoglobin ABG Sodium ABG Potassium ABG Chloride ABG Glucose Sodium Potassium Chloride Carbon Dioxide BUN Glucose POC Glucose Lactic Acid Ferritin 1932.0 H Total Bilirubin AST ALT Alkaline Phosphatase Lactate Dehydrogenase 462 H Troponin T C-Reactive Protein 4.70 H NT-Pro-B Natriuret Pep Albumin Prealbumin HDL Cholesterol Arterial Blood Glucose - Diagnostic Findings Chest x-ray: report reviewed CT scan - chest: report reviewed Additional studies: Head CT report reviewed Assessment and Plan 80 y/o female with out of hospital cardiac arrest and acute respiratory failure with ROSC now awake and alert. 1. Patient still very weak and with etiology of arrest not known, will hold on extubation today 2. Resume home medical regimen 3. NO sedation 4. Hopeful to extubate in am after reviewing AM gas
--- NOTE | 2020-08-14 16:03 | Progress Note ---
Assessment and Plan Critical care statement The high probability OF a clinically significant sudden or life-threatening deterioration of the cardiorespiratory system and endocrine system required my full and direct attention, intervention and postoperative management. The aggregate critical care time was 40 minutes. The time is in addition to time spent performing reported procedures but includes the followin: Data review and interpretation 2: Patient assessment and monitoring of vital signs 3: Documentation 4:: Medication orders and management - Patient Problems (1) Acute respiratory failure with hypoxia Current Visit: Yes Status: Acute Plan to address problem: Patient intubated Patient initiated on IV cefepime and vancomycin for possible aspiration pneumonia Patient initiated on IV steroids Patient initiated on duo nebs [id number] and every 3 hours Lime Boiler consult requested (2) Sepsis Current Visit: Yes Status: Acute Plan to address problem: Sepsis highly likely Lactic acid is high White blood cell count is normal ID consult requested Procalcitonin requested (3) Aspiration pneumonia Current Visit: Yes Status: Acute Qualifiers: Lung location: lower lobe of lung Plan to address problem: Highly likely aspiration pneumonia Patient initiated on IV cefepime and vancomycin ID consult requested (4) COPD (chronic obstructive pulmonary disease) Current Visit: No Status: Chronic Qualifiers: Chronic bronchitis type: mixed simple and mucopurulent Plan to address problem: Duo nebs [id number] IV antibiotics and IV Solu-Medrol initiated (5) CHF (congestive heart failure) Current Visit: No Status: Acute Qualifiers: Heart failure type: systolic Heart failure chronicity: acute Qualified Code(s): I50.21 - Acute systolic (congestive) heart failure Plan to address problem: BNP is high Blood pressure is low Lasix to be used judiciously (6) Hypotension Current Visit: Yes Status: Acute Plan to address problem: Pressors if necessary Possible Ativan effect (7) T2DM (type 2 diabetes mellitus) Current Visit: Yes Status: Chronic Qualifiers: Diabetes mellitus mcc insulin use: unspecified mcc insulin use status Plan to address problem: Daughter says there is no diabetes in patient's past medical history Check hemoglobin A1c next Accu-Cheks and high-dose sliding scale coverage next Humalog mix initiated (8) History of pulmonary embolism Current Visit: Yes Status: Chronic Plan to address problem: Patient apparently had PE and DVT in July beginning and was initiated on Eliquis As per daughter Eliquis was stopped because of GI bleed Daughter is a very poor historian Patient on heparin 5000 every 12 (9) Subdural hematoma, chronic Current Visit: Yes Status: Chronic Plan to address problem: Was treated in 2016 with a shantel holes No residual SDH (10) DVT prophylaxis Current Visit: Yes Status: Acute Plan to address problem: On heparin and GI prophylaxis Subjective Date of service: 08/14/20 Objective - Constitutional Vitals: Vital Signs - 12hr 08/14/20 08/14/20 08/14/20 04:11 04:20 04:21 Pulse Rate 62 100 H Pulse Rate [ Throughout] Respiratory 18 68 H 18 Rate Respiratory Rate [ Throughout] Blood Pressure 87/56 90/49 O2 Sat by Pulse 99 94 98 Oximetry 08/14/20 08/14/20 08/14/20 04:30 04:41 04:51 Pulse Rate 65 68 68 Pulse Rate [ Throughout] Respiratory 18 11 L 18 Rate Respiratory Rate [ Throughout] Blood Pressure 89/50 89/50 98/55 O2 Sat by Pulse 96 97 97 Oximetry 08/14/20 08/14/20 08/14/20 05:00 05:11 05:21 Pulse Rate 67 103 H 104 H Pulse Rate [ Throughout] Respiratory 18 15 14 Rate Respiratory Rate [ Throughout] Blood Pressure 101/54 101/54 104/53 O2 Sat by Pulse 96 97 96 Oximetry 08/14/20 08/14/20 08/14/20 05:30 05:41 05:51 Pulse Rate 70 102 H 76 Pulse Rate [ Throughout] Respiratory 7 L 5 L 16 Rate Respiratory Rate [ Throughout] Blood Pressure 104/51 104/51 107/56 O2 Sat by Pulse 95 97 95 Oximetry 08/14/20 08/14/20 08/14/20 06:00 06:11 08:00 Pulse Rate 77 103 H Pulse Rate [ Throughout] Respiratory 9 L 18 Rate Respiratory Rate [ Throughout] Blood Pressure 108/52 108/52 O2 Sat by Pulse 94 96 98 Oximetry 08/14/20 08/14/20 08/14/20 09:07 09:30 10:00 Pulse Rate 65 61 Pulse Rate [ 82 Throughout] Respiratory Rate Respiratory 18 Rate [ Throughout] Blood Pressure 119/60 O2 Sat by Pulse 94 Oximetry 08/14/20 08/14/20 08/14/20 11:33 12:00 12:35 Pulse Rate 92 H Pulse Rate [ 99 H Throughout] Respiratory 24 Rate Respiratory 21 Rate [ Throughout] Blood Pressure 120/68 O2 Sat by Pulse 94 98 Oximetry 08/14/20 08/14/20 14:52 14:57 Pulse Rate Pulse Rate [ Throughout] Respiratory Rate Respiratory Rate [ Throughout] Blood Pressure 134/77 O2 Sat by Pulse 100 100 Oximetry General appearance: Present: no acute distress, well-nourished - EENT Eyes: PERRL, EOM intact ENT: hearing intact, clear oral mucosa Ears: bilateral: normal - Neck Neck: supple, normal ROM - Respiratory Respiratory effort: normal Respiratory: bilateral: CTA - Breasts Breasts: normal - Cardiovascular Rhythm: regular Heart Sounds: Present: S1 & S2. Absent: gallop, rub Extremities: pulses intact, No edema, normal color, Full ROM - Gastrointestinal General gastrointestinal: Present: soft, non-tender, non-distended, normal bowel sounds - Genitourinary Female genitourinary: normal - Integumentary Integumentary: clear, warm, dry - Musculoskeletal Musculoskeletal: 1, strength equal bilaterally - Neurologic Neurologic: moves all extremities - Psychiatric Psychiatric: memory intact, appropriate mood/affect, intact judgment & insight - Labs CBC & Chem 7: 08/14/20 07:31 08/14/20 07:31 Labs: Abnormal lab results 08/13/20 08/13/20 08/13/20 Range/Units 12:52 13:46 15:44 RDW (13.2-15.2) % Plt Count (140-440) K/mm3 Seg Neuts % (Manual) (40.0-70.0) % Lymphocytes % (Manual) (13.4-35.0) % Basophils % (Manual) (0.0-1.8) % Lymphocytes # (Manual) (1.2-5.4) K/mm3 Basophils # (Manual) (0.0-0.1) K/mm3 POC ABG pCO2 (32.0-48.0) mmHg POC ABG pO2 (83-108) mmHg ABG Oxyhemoglobin (94-98) ABG Sodium (136.0-145.0) mmol/L ABG Potassium (3.40-4.50) mmol/L ABG Chloride (98-107) mmol/L ABG Glucose (65-95) mg/dL Sodium (137-145) mmol/L Potassium (3.6-5.0) mmol/L Carbon Dioxide (22-30) mmol/L BUN (7-17) mg/dL Glucose (65-100) mg/dL POC Glucose < 10 L 126 H (70-105) mg/dL Lactic Acid 6.80 H* (0.7-2.0) mmol/L Ferritin (10.0-200.0) ng/mL Total Bilirubin (0.1-1.2) mg/dL AST (5-40) units/L ALT (7-56) units/L Alkaline Phosphatase (35-129) units/L Lactate Dehydrogenase (91-180) units/L Troponin T (0.00-0.029) ng/mL C-Reactive Protein (0.00-1.30) mg/dL Albumin (3.9-5) g/dL Prealbumin (0.200-0.400) g/L HDL Cholesterol (40-59) mg/dL Arterial Blood Glucose (65-95) mg/dL Coronavirus (PCR) (Negative) 08/13/20 08/13/20 08/13/20 Range/Units 16:33 16:33 17:48 RDW (13.2-15.2) % Plt Count (140-440) K/mm3 Seg Neuts % (Manual) (40.0-70.0) % Lymphocytes % (Manual) (13.4-35.0) % Basophils % (Manual) (0.0-1.8) % Lymphocytes # (Manual) (1.2-5.4) K/mm3 Basophils # (Manual) (0.0-0.1) K/mm3 POC ABG pCO2 (32.0-48.0) mmHg POC ABG pO2 (83-108) mmHg ABG Oxyhemoglobin (94-98) ABG Sodium (136.0-145.0) mmol/L ABG Potassium (3.40-4.50) mmol/L ABG Chloride (98-107) mmol/L ABG Glucose (65-95) mg/dL Sodium 134 L (137-145) mmol/L Potassium 5.6 H (3.6-5.0) mmol/L Carbon Dioxide 14 L (22-30) mmol/L BUN 36 H (7-17) mg/dL Glucose 280 H (65-100) mg/dL POC Glucose (70-105) mg/dL Lactic Acid 6.90 H* (0.7-2.0) mmol/L Ferritin (10.0-200.0) ng/mL Total Bilirubin 3.20 H (0.1-1.2) mg/dL AST 145 H (5-40) units/L ALT 70 H (7-56) units/L Alkaline Phosphatase 137 H (35-129) units/L Lactate Dehydrogenase (91-180) units/L Troponin T 0.038 H D (0.00-0.029) ng/mL C-Reactive Protein (0.00-1.30) mg/dL Albumin 3.6 L (3.9-5) g/dL Prealbumin (0.200-0.400) g/L HDL Cholesterol 72 H (40-59) mg/dL Arterial Blood Glucose (65-95) mg/dL Coronavirus (PCR) (Negative) 08/13/20 08/13/20 08/13/20 Range/Units 18:59 20:24 23:37 RDW (13.2-15.2) % Plt Count (140-440) K/mm3 Seg Neuts % (Manual) (40.0-70.0) % Lymphocytes % (Manual) (13.4-35.0) % Basophils % (Manual) (0.0-1.8) % Lymphocytes # (Manual) (1.2-5.4) K/mm3 Basophils # (Manual) (0.0-0.1) K/mm3 POC ABG pCO2 (32.0-48.0) mmHg POC ABG pO2 (83-108) mmHg ABG Oxyhemoglobin (94-98) ABG Sodium (136.0-145.0) mmol/L ABG Potassium (3.40-4.50) mmol/L ABG Chloride (98-107) mmol/L ABG Glucose (65-95) mg/dL Sodium (137-145) mmol/L Potassium (3.6-5.0) mmol/L Carbon Dioxide (22-30) mmol/L BUN (7-17) mg/dL Glucose (65-100) mg/dL POC Glucose 198 H 166 H 40 L (70-105) mg/dL Lactic Acid (0.7-2.0) mmol/L Ferritin (10.0-200.0) ng/mL Total Bilirubin (0.1-1.2) mg/dL AST (5-40) units/L ALT (7-56) units/L Alkaline Phosphatase (35-129) units/L Lactate Dehydrogenase (91-180) units/L Troponin T (0.00-0.029) ng/mL C-Reactive Protein (0.00-1.30) mg/dL Albumin (3.9-5) g/dL Prealbumin (0.200-0.400) g/L HDL Cholesterol (40-59) mg/dL Arterial Blood Glucose (65-95) mg/dL Coronavirus (PCR) (Negative) 08/13/20 08/13/20 08/13/20 Range/Units 23:50 23:50 23:50 RDW (13.2-15.2) % Plt Count (140-440) K/mm3 Seg Neuts % (Manual) (40.0-70.0) % Lymphocytes % (Manual) (13.4-35.0) % Basophils % (Manual) (0.0-1.8) % Lymphocytes # (Manual) (1.2-5.4) K/mm3 Basophils # (Manual) (0.0-0.1) K/mm3 POC ABG pCO2 (32.0-48.0) mmHg POC ABG pO2 (83-108) mmHg ABG Oxyhemoglobin (94-98) ABG Sodium (136.0-145.0) mmol/L ABG Potassium (3.40-4.50) mmol/L ABG Chloride (98-107) mmol/L ABG Glucose (65-95) mg/dL Sodium (137-145) mmol/L Potassium (3.6-5.0) mmol/L Carbon Dioxide (22-30) mmol/L BUN (7-17) mg/dL Glucose 50 L (65-100) mg/dL POC Glucose (70-105) mg/dL Lactic Acid 3.20 H* (0.7-2.0) mmol/L Ferritin (10.0-200.0) ng/mL Total Bilirubin (0.1-1.2) mg/dL AST (5-40) units/L ALT (7-56) units/L Alkaline Phosphatase (35-129) units/L Lactate Dehydrogenase (91-180) units/L Troponin T (0.00-0.029) ng/mL C-Reactive Protein (0.00-1.30) mg/dL Albumin (3.9-5) g/dL Prealbumin 0.142 L (0.200-0.400) g/L HDL Cholesterol (40-59) mg/dL Arterial Blood Glucose (65-95) mg/dL Coronavirus (PCR) (Negative) 08/14/20 08/14/20 08/14/20 Range/Units 04:51 05:10 07:31 RDW 18.4 H (13.2-15.2) % Plt Count 133 L (140-440) K/mm3 Seg Neuts % (Manual) 93.0 H (40.0-70.0) % Lymphocytes % (Manual) 3.0 L (13.4-35.0) % Basophils % (Manual) 2.0 H (0.0-1.8) % Lymphocytes # (Manual) 0.2 L (1.2-5.4) K/mm3 Basophils # (Manual) 0.2 H (0.0-0.1) K/mm3 POC ABG pCO2 30.2 L (32.0-48.0) mmHg POC ABG pO2 63.8 L (83-108) mmHg ABG Oxyhemoglobin 91.2 L (94-98) ABG Sodium 133.7 L (136.0-145.0) mmol/L ABG Potassium 4.9 H (3.40-4.50) mmol/L ABG Chloride 108.0 H (98-107) mmol/L ABG Glucose 58 L (65-95) mg/dL Sodium (137-145) mmol/L Potassium (3.6-5.0) mmol/L Carbon Dioxide (22-30) mmol/L BUN (7-17) mg/dL Glucose (65-100) mg/dL POC Glucose 61 L (70-105) mg/dL Lactic Acid (0.7-2.0) mmol/L Ferritin (10.0-200.0) ng/mL Total Bilirubin (0.1-1.2) mg/dL AST (5-40) units/L ALT (7-56) units/L Alkaline Phosphatase (35-129) units/L Lactate Dehydrogenase (91-180) units/L Troponin T (0.00-0.029) ng/mL C-Reactive Protein (0.00-1.30) mg/dL Albumin (3.9-5) g/dL Prealbumin (0.200-0.400) g/L HDL Cholesterol (40-59) mg/dL Arterial Blood Glucose 58 L (65-95) mg/dL Coronavirus (PCR) (Negative) 08/14/20 08/14/20 08/14/20 Range/Units 07:31 10:30 10:30 RDW (13.2-15.2) % Plt Count (140-440) K/mm3 Seg Neuts % (Manual) (40.0-70.0) % Lymphocytes % (Manual) (13.4-35.0) % Basophils % (Manual) (0.0-1.8) % Lymphocytes # (Manual) (1.2-5.4) K/mm3 Basophils # (Manual) (0.0-0.1) K/mm3 POC ABG pCO2 (32.0-48.0) mmHg POC ABG pO2 (83-108) mmHg ABG Oxyhemoglobin (94-98) ABG Sodium (136.0-145.0) mmol/L ABG Potassium (3.40-4.50) mmol/L ABG Chloride (98-107) mmol/L ABG Glucose (65-95) mg/dL Sodium (137-145) mmol/L Potassium 5.1 H (3.6-5.0) mmol/L Carbon Dioxide (22-30) mmol/L BUN 43 H (7-17) mg/dL Glucose 119 H (65-100) mg/dL POC Glucose (70-105) mg/dL Lactic Acid (0.7-2.0) mmol/L Ferritin 1932.0 H (10.0-200.0) ng/mL Total Bilirubin 2.40 H (0.1-1.2) mg/dL AST 157 H (5-40) units/L ALT 98 H (7-56) units/L Alkaline Phosphatase (35-129) units/L Lactate Dehydrogenase 462 H (91-180) units/L Troponin T (0.00-0.029) ng/mL C-Reactive Protein 4.70 H (0.00-1.30) mg/dL Albumin 3.3 L (3.9-5) g/dL Prealbumin (0.200-0.400) g/L HDL Cholesterol (40-59) mg/dL Arterial Blood Glucose (65-95) mg/dL Coronavirus (PCR) (Negative) 08/14/20 Range/Units Unknown RDW (13.2-15.2) % Plt Count (140-440) K/mm3 Seg Neuts % (Manual) (40.0-70.0) % Lymphocytes % (Manual) (13.4-35.0) % Basophils % (Manual) (0.0-1.8) % Lymphocytes # (Manual) (1.2-5.4) K/mm3 Basophils # (Manual) (0.0-0.1) K/mm3 POC ABG pCO2 (32.0-48.0) mmHg POC ABG pO2 (83-108) mmHg ABG Oxyhemoglobin (94-98) ABG Sodium (136.0-145.0) mmol/L ABG Potassium (3.40-4.50) mmol/L ABG Chloride (98-107) mmol/L ABG Glucose (65-95) mg/dL Sodium (137-145) mmol/L Potassium (3.6-5.0) mmol/L Carbon Dioxide (22-30) mmol/L BUN (7-17) mg/dL Glucose (65-100) mg/dL POC Glucose (70-105) mg/dL Lactic Acid (0.7-2.0) mmol/L Ferritin (10.0-200.0) ng/mL Total Bilirubin (0.1-1.2) mg/dL AST (5-40) units/L ALT (7-56) units/L Alkaline Phosphatase (35-129) units/L Lactate Dehydrogenase (91-180) units/L Troponin T (0.00-0.029) ng/mL C-Reactive Protein (0.00-1.30) mg/dL Albumin (3.9-5) g/dL Prealbumin (0.200-0.400) g/L HDL Cholesterol (40-59) mg/dL Arterial Blood Glucose (65-95) mg/dL Coronavirus (PCR) Positive A (Negative) HEART Score - HEART Score Age: > 65 Risk factors: > 3 risk factors or hx of atherosclerotic disease Troponin: Troponin T < 0.010 ng/mL (0.00-0.029) 08/13/20 Unknown Troponin: 1-3x normal limit - Critical Actions Critical Actions: 4-6 pts:12-16.6% risk of adverse cardiac event. Should be admitted
[2020-08-14] MEDS: VANCOMYCIN/NS 1 GM/250 ML 1 GM/250 ML BAG IV SCH (21:55)
[2020-08-14] MEDS ORDERED: INSULIN GLARGINE 100 UNITS/ML SUB-Q SCH (22:00)
[2020-08-15] MEDS ORDERED: dilTIAZem 25 MG/5 ML INJ IV ONE (01:23)
[2020-08-15] MEDS: INSULIN LISPRO 100 UNIT/ML SUB-Q SCH ×7 (02:56→23:27)
[2020-08-15] MEDS: methylPREDNISolone Sod Succinate 40 MG/1 ML INJ IV SCH (05:25)
--- NOTE | 2020-08-15 06:40 | XRay Report ---
CHEST 1 VIEW 08/15/2020 5:31 AM INDICATION / CLINICAL INFORMATION: follow up respiratory failure. COMPARISON: 08/14/2020 FINDINGS: SUPPORT DEVICES: None. The endotracheal tube has been removed. HEART / MEDIASTINUM: There is enlargement of the cardiac silhouette. LUNGS / PLEURA: There are mild diffuse bilateral pulmonary opacities which appear unchanged. No pneum othorax. ADDITIONAL FINDINGS: No significant additional findings. IMPRESSION: 1. No acute findings. Signer Name: Zac Lang MD Signed: 08/15/2020 6:36 AM Workstation Name: [id number]
--- NOTE | 2020-08-15 07:42 | Progress Note ---
Assessment and Plan Cultures: Blood culture no growth today SARS CoV2 PCR positive BAL 08/13/2020 normal respiratory soren Assessment: 80 years old female with history of CHF, diabetes mellitus, COPD, hypertension, previous pulmonary embolism, A. fib, recent Covid pneumonia with hypoxia admitted to [facility] from 07/19/2020 2 07/24/2020, treated with remdesivir and Decadron found to have bilateral DVTs and AKA, is now readmitted on 08/13/2020 secondary to acute respiratory distress, experienced cardiac arrest with V. tach, patient underwent ACLS was intubated on the field: #Severe sepsis septic shock versus cardiogenic shock/out of hospital cardiac arrest: Present on admission with hypothermia, tachycardia, hypotension, elevated lactate likely secondary to recent out of hospital cardiac arrest. Etiology unclear likely related to recent COVID-19 pneumonia with cytokine storm. Urinalysis negative. #Critical COVID pneumonia versus bacterial pneumonia: Likely cytokine storm post COVID. The possibility of bacterial aspiration pneumonia is also in the differential. CT chest shows bilateral infiltrates. No pulmonary embolism seen. Repeat chest x-ray with bilateral mild interstitial opacities. Elevated markers, including D-dimer 8000. #Acute hypoxemic respiratory failure: Patient intubated on the field during cardiac arrest and resuscitation. Self extubated, now on Venturi mask. #Elevated LFTs: from COVID/shock, remains elevated #KATHY: from cardiac arrest, shock #Recent bilateral leg DVT: #Acute encephalopathy: Post cardiac arrest ? Concern of anoxic brain injury Recommendations: -Follow-up blood cultures -Continue cefepime renally adjusted and vancomycin with PK consult for now D2 of 7 -Check MRSA PCR pending -Obtain transthoracic echo/cards evaluation -Continue steroids for now -No indication for remdesivir, patient received a course of remdesivir during recent admission, currently outside of therapeutic window -Monitor inflammatory markers - ferritin, Ddimer, CRP, LDH -Continue anticoagulation per System Protocol -Prone positioning as possible All laboratory, cultures and imaging were reviewed. Overall prognosis guarded Will follow Izzy Ortiz MD Infectious Diseases Entry Level Lab Technician [facility] M [phone] O [phone] Subjective Date of service: 08/15/20 Principal diagnosis: COVID Interval history: Patient self extubated, currently on Ventimask 50%, noted run of SVT and some PVCs overnight. No fever. Objective - Exam Narrative Exam: Physical exam deferred to minimize COVID-19 transmission during pandemic. ER and internal medicine physical examination notes reviewed. - Constitutional Vitals: Vital Signs Temp Pulse Resp BP Pulse Ox 97.0 F L 73 20 70/43 99 08/14/20 04:00 08/15/20 04:49 08/15/20 02:31 08/15/20 02:31 08/15/20 02:31 - Labs CBC & Chem 7: 08/14/20 07:31 08/14/20 07:31 Labs: Abnormal lab results 08/14/20 08/14/20 08/14/20 Range/Units 06:04 07:31 07:31 RDW 18.4 H (13.2-15.2) % Plt Count 133 L (140-440) K/mm3 Seg Neuts % (Manual) 93.0 H (40.0-70.0) % Lymphocytes % (Manual) 3.0 L (13.4-35.0) % Basophils % (Manual) 2.0 H (0.0-1.8) % Lymphocytes # (Manual) 0.2 L (1.2-5.4) K/mm3 Basophils # (Manual) 0.2 H (0.0-0.1) K/mm3 Potassium 5.1 H (3.6-5.0) mmol/L BUN 43 H (7-17) mg/dL Glucose 119 H (65-100) mg/dL POC Glucose 150 H (70-105) mg/dL Ferritin (10.0-200.0) ng/mL Total Bilirubin 2.40 H (0.1-1.2) mg/dL AST 157 H (5-40) units/L ALT 98 H (7-56) units/L Lactate Dehydrogenase (91-180) units/L C-Reactive Protein (0.00-1.30) mg/dL Albumin 3.3 L (3.9-5) g/dL Coronavirus (PCR) (Negative) 08/14/20 08/14/20 08/14/20 Range/Units 10:30 10:30 14:52 RDW (13.2-15.2) % Plt Count (140-440) K/mm3 Seg Neuts % (Manual) (40.0-70.0) % Lymphocytes % (Manual) (13.4-35.0) % Basophils % (Manual) (0.0-1.8) % Lymphocytes # (Manual) (1.2-5.4) K/mm3 Basophils # (Manual) (0.0-0.1) K/mm3 Potassium (3.6-5.0) mmol/L BUN (7-17) mg/dL Glucose (65-100) mg/dL POC Glucose 125 H (70-105) mg/dL Ferritin 1932.0 H (10.0-200.0) ng/mL Total Bilirubin (0.1-1.2) mg/dL AST (5-40) units/L ALT (7-56) units/L Lactate Dehydrogenase 462 H (91-180) units/L C-Reactive Protein 4.70 H (0.00-1.30) mg/dL Albumin (3.9-5) g/dL Coronavirus (PCR) (Negative) 08/14/20 08/14/20 08/14/20 Range/Units 17:58 19:41 20:59 RDW (13.2-15.2) % Plt Count (140-440) K/mm3 Seg Neuts % (Manual) (40.0-70.0) % Lymphocytes % (Manual) (13.4-35.0) % Basophils % (Manual) (0.0-1.8) % Lymphocytes # (Manual) (1.2-5.4) K/mm3 Basophils # (Manual) (0.0-0.1) K/mm3 Potassium (3.6-5.0) mmol/L BUN (7-17) mg/dL Glucose (65-100) mg/dL POC Glucose 108 H 116 H 117 H (70-105) mg/dL Ferritin (10.0-200.0) ng/mL Total Bilirubin (0.1-1.2) mg/dL AST (5-40) units/L ALT (7-56) units/L Lactate Dehydrogenase (91-180) units/L C-Reactive Protein (0.00-1.30) mg/dL Albumin (3.9-5) g/dL Coronavirus (PCR) (Negative) 08/14/20 08/14/20 Range/Units 23:01 Unknown RDW (13.2-15.2) % Plt Count (140-440) K/mm3 Seg Neuts % (Manual) (40.0-70.0) % Lymphocytes % (Manual) (13.4-35.0) % Basophils % (Manual) (0.0-1.8) % Lymphocytes # (Manual) (1.2-5.4) K/mm3 Basophils # (Manual) (0.0-0.1) K/mm3 Potassium (3.6-5.0) mmol/L BUN (7-17) mg/dL Glucose (65-100) mg/dL POC Glucose 118 H (70-105) mg/dL Ferritin (10.0-200.0) ng/mL Total Bilirubin (0.1-1.2) mg/dL AST (5-40) units/L ALT (7-56) units/L Lactate Dehydrogenase (91-180) units/L C-Reactive Protein (0.00-1.30) mg/dL Albumin (3.9-5) g/dL Coronavirus (PCR) Positive A (Negative)
[2020-08-15] MEDS: IPRATROPIUM/ALBUTEROL SULFATE 3 ML AMPUL.NEB IH SCH ×2 (08:28→11:41)
[2020-08-15] MEDS: FAMOTIDINE 20 MG/2 ML INJ IV SCH (10:14)
[2020-08-15] MEDS: CEFEPIME/NS 2 GM/100 ML 2 GM/100 ML BAG IV SCH ×2 (10:14→21:43)
[2020-08-15] MEDS: ENOXAPARIN 60 MG/0.6 ML INJ SUB-Q SCH ×2 (10:15→21:43)
--- NOTE | 2020-08-15 11:07 | Progress Note ---
Assessment and Plan 80 y/o female with out of hospital cardiac arrest and acute respiratory failure with ROSC now awake and alert. 08/15/20: Pulm status is stable. Still do not know exact etiology of cardiac arrest. Checking chemistry today to make sure electrolytes are stable. Otherwise, not acute indication for ICU any more. Will transfer to step down. [facility] continues to follow and remainder of work up on them. 1. Patient still very weak and with etiology of arrest not known, will hold on extubation today 2. Resume home medical regimen 3. NO sedation 4. Hopeful to extubate in am after reviewing AM gas Subjective Date of service: 08/15/20 Principal diagnosis: COVID Interval history: Patient self extubated yesterday afternoon. Stable overnight. Had an episode of SVT treated with IV dilt. Returned to sinus, and no drip was started. No labs checked this am. Not on D10 anymore and did not get insulin as patient has not eaten. Objective Vital Signs - 12hr 08/14/20 08/14/20 08/14/20 23:11 23:21 23:30 Pulse Rate 99 H 84 82 Pulse Rate [ Bilateral] Pulse Rate [ Throughout] Respiratory 21 15 16 Rate Respiratory Rate [Bilateral ] Respiratory Rate [ Throughout] Blood Pressure 107/66 107/66 107/66 O2 Sat by Pulse 93 96 94 Oximetry 08/14/20 08/14/20 08/15/20 23:40 23:51 00:00 Pulse Rate 90 113 H Pulse Rate [ Bilateral] Pulse Rate [ Throughout] Respiratory 13 18 22 Rate Respiratory Rate [Bilateral ] Respiratory Rate [ Throughout] Blood Pressure 103/61 120/80 O2 Sat by Pulse 94 Oximetry 08/15/20 08/15/20 08/15/20 00:11 00:21 00:28 Pulse Rate 153 H 155 H 156 H Pulse Rate [ Bilateral] Pulse Rate [ Throughout] Respiratory 24 23 Rate Respiratory Rate [Bilateral ] Respiratory Rate [ Throughout] Blood Pressure 120/80 120/80 O2 Sat by Pulse Oximetry 08/15/20 08/15/20 08/15/20 00:31 00:41 00:47 Pulse Rate 155 H 154 H 75 Pulse Rate [ Bilateral] Pulse Rate [ Throughout] Respiratory 17 19 Rate Respiratory Rate [Bilateral ] Respiratory Rate [ Throughout] Blood Pressure 105/67 105/67 O2 Sat by Pulse 100 99 Oximetry 08/15/20 08/15/2008/15/21 00:50 00:56 01:00 Pulse Rate 73 155 H 70 Pulse Rate [ Bilateral] Pulse Rate [ Throughout] Respiratory 17 17 Rate Respiratory Rate [Bilateral ] Respiratory Rate [ Throughout] Blood Pressure 103/55 107/57 107/58 O2 Sat by Pulse 99 100 Oximetry 08/15/20 08/15/20 08/15/20 01:10 01:21 01:30 Pulse Rate 67 87 72 Pulse Rate [ Bilateral] Pulse Rate [ Throughout] Respiratory 14 19 14 Rate Respiratory Rate [Bilateral ] Respiratory Rate [ Throughout] Blood Pressure 107/57 109/61 109/53 O2 Sat by Pulse 100 93 96 Oximetry 08/15/20 08/15/20 08/15/20 01:40 01:51 02:00 Pulse Rate 73 74 69 Pulse Rate [ Bilateral] Pulse Rate [ Throughout] Respiratory 14 14 14 Rate Respiratory Rate [Bilateral ] Respiratory Rate [ Throughout] Blood Pressure 112/50 109/58 113/59 O2 Sat by Pulse 92 97 100 Oximetry 08/15/20 08/15/20 08/15/20 02:10 02:20 02:31 Pulse Rate 70 74 70 Pulse Rate [ Bilateral] Pulse Rate [ Throughout] Respiratory 13 14 20 Rate Respiratory Rate [Bilateral ] Respiratory Rate [ Throughout] Blood Pressure 117/59 112/63 70/43 O2 Sat by Pulse 100 100 99 Oximetry 08/15/20 08/15/20 08/15/20 04:49 08:06 08:28 Pulse Rate 73 Pulse Rate [ 98 H Bilateral] Pulse Rate [ 96 H Throughout] Respiratory Rate Respiratory 16 Rate [Bilateral ] Respiratory 20 Rate [ Throughout] Blood Pressure O2 Sat by Pulse 99 Oximetry CBC and BMP: 08/14/20 07:31 08/14/20 07:31 ABG, PT/INR, D-dimer: ABG ABG pH 7.423 (7.320-7.450) 08/14/20 04:51 POC ABG pCO2 30.2 mmHg (32.0-48.0) L 08/14/20 04:51 ABG pCO2 33.1 mm Hg 08/13/20 13:55 POC ABG pO2 63.8 mmHg (83-108) L 08/14/20 04:51 ABG pO2 375.9 mm Hg (80.0-90.0) H 08/13/20 13:55 POC ABG HCO3 19.3 08/14/20 04:51 ABG O2 Saturation 99.5 % (95.0-99.0) H 08/13/20 13:55 PT/INR, D-dimer D-Dimer 8048.70 ng/mlDDU (0-234) H 08/13/20 Unknown Abnormal lab findings: Abnormal Labs 08/13/20 08/13/20 08/13/20 12:52 13:46 13:55 MCV RDW Plt Count Seg Neuts % (Manual) Lymphocytes % (Manual) Monocytes % (Manual) Basophils % (Manual) Lymphocytes # (Manual) Basophils # (Manual) APTT D-Dimer ABG pH 7.126 L* POC ABG pCO2 POC ABG pO2 ABG pO2 375.9 H ABG HCO3 10.7 L ABG O2 Saturation 99.5 H ABG Base Excess -17.4 L ABG Hemoglobin 11.5 L ABG Oxyhemoglobin ABG Sodium ABG Potassium ABG Chloride ABG Glucose Sodium Potassium Chloride Carbon Dioxide BUN Glucose POC Glucose < 10 L 126 H Lactic Acid Ferritin Total Bilirubin AST ALT Alkaline Phosphatase Lactate Dehydrogenase Troponin T C-Reactive Protein NT-Pro-B Natriuret Pep Albumin Prealbumin HDL Cholesterol Arterial Blood Glucose Coronavirus (PCR) 08/13/20 08/13/20 08/13/20 15:44 16:33 16:33 MCV RDW Plt Count Seg Neuts % (Manual) Lymphocytes % (Manual) Monocytes % (Manual) Basophils % (Manual) Lymphocytes # (Manual) Basophils # (Manual) APTT D-Dimer ABG pH POC ABG pCO2 POC ABG pO2 ABG pO2 ABG HCO3 ABG O2 Saturation ABG Base Excess ABG Hemoglobin ABG Oxyhemoglobin ABG Sodium ABG Potassium ABG Chloride ABG Glucose Sodium 134 L Potassium 5.6 H Chloride Carbon Dioxide 14 L BUN 36 H Glucose 280 H POC Glucose Lactic Acid 6.80 H* Ferritin Total Bilirubin 3.20 H AST 145 H ALT 70 H Alkaline Phosphatase 137 H Lactate Dehydrogenase Troponin T 0.038 H D C-Reactive Protein NT-Pro-B Natriuret Pep Albumin 3.6 L Prealbumin HDL Cholesterol 72 H Arterial Blood Glucose Coronavirus (PCR) 08/13/20 08/13/20 08/13/20 17:48 18:59 20:24 MCV RDW Plt Count Seg Neuts % (Manual) Lymphocytes % (Manual) Monocytes % (Manual) Basophils % (Manual) Lymphocytes # (Manual) Basophils # (Manual) APTT D-Dimer ABG pH POC ABG pCO2 POC ABG pO2 ABG pO2 ABG HCO3 ABG O2 Saturation ABG Base Excess ABG Hemoglobin ABG Oxyhemoglobin ABG Sodium ABG Potassium ABG Chloride ABG Glucose Sodium Potassium Chloride Carbon Dioxide BUN Glucose POC Glucose 198 H 166 H Lactic Acid 6.90 H* Ferritin Total Bilirubin AST ALT Alkaline Phosphatase Lactate Dehydrogenase Troponin T C-Reactive Protein NT-Pro-B Natriuret Pep Albumin Prealbumin HDL Cholesterol Arterial Blood Glucose Coronavirus (PCR) 08/13/20 08/13/20 08/13/20 23:37 23:50 23:50 MCV RDW Plt Count Seg Neuts % (Manual) Lymphocytes % (Manual) Monocytes % (Manual) Basophils % (Manual) Lymphocytes # (Manual) Basophils # (Manual) APTT D-Dimer ABG pH POC ABG pCO2 POC ABG pO2 ABG pO2 ABG HCO3 ABG O2 Saturation ABG Base Excess ABG Hemoglobin ABG Oxyhemoglobin ABG Sodium ABG Potassium ABG Chloride ABG Glucose Sodium Potassium Chloride Carbon Dioxide BUN Glucose POC Glucose 40 L Lactic Acid 3.20 H* Ferritin Total Bilirubin AST ALT Alkaline Phosphatase Lactate Dehydrogenase Troponin T C-Reactive Protein NT-Pro-B Natriuret Pep Albumin Prealbumin 0.142 L HDL Cholesterol Arterial Blood Glucose Coronavirus (PCR) 08/13/20 08/13/20 08/13/20 23:50 Unknown Unknown MCV 99 H RDW 19.6 H Plt Count Seg Neuts % (Manual) Lymphocytes % (Manual) Monocytes % (Manual) 9.0 H Basophils % (Manual) 2.0 H Lymphocytes # (Manual) Basophils # (Manual) 0.2 H APTT D-Dimer ABG pH POC ABG pCO2 POC ABG pO2 ABG pO2 ABG HCO3 ABG O2 Saturation ABG Base Excess ABG Hemoglobin ABG Oxyhemoglobin ABG Sodium ABG Potassium ABG Chloride ABG Glucose Sodium Potassium Chloride Carbon Dioxide BUN Glucose 50 L POC Glucose Lactic Acid Ferritin Total Bilirubin AST ALT Alkaline Phosphatase Lactate Dehydrogenase Troponin T C-Reactive Protein NT-Pro-B Natriuret Pep > 14095 H Albumin Prealbumin HDL Cholesterol Arterial Blood Glucose Coronavirus (PCR) 08/13/20 08/13/20 08/14/20 Unknown Unknown 04:51 MCV RDW Plt Count Seg Neuts % (Manual) Lymphocytes % (Manual) Monocytes % (Manual) Basophils % (Manual) Lymphocytes # (Manual) Basophils # (Manual) APTT 45.4 H D-Dimer 8048.70 H ABG pH POC ABG pCO2 30.2 L POC ABG pO2 63.8 L ABG pO2 ABG HCO3 ABG O2 Saturation ABG Base Excess ABG Hemoglobin ABG Oxyhemoglobin 91.2 L ABG Sodium 133.7 L ABG Potassium 4.9 H ABG Chloride 108.0 H ABG Glucose 58 L Sodium 133 L Potassium Chloride 97.7 L Carbon Dioxide 14 L BUN 34 H Glucose 472 H POC Glucose Lactic Acid Ferritin Total Bilirubin 2.60 H AST 68 H ALT Alkaline Phosphatase Lactate Dehydrogenase Troponin T C-Reactive Protein NT-Pro-B Natriuret Pep Albumin 3.1 L Prealbumin HDL Cholesterol Arterial Blood Glucose 58 L Coronavirus (PCR) 08/14/20 08/14/20 08/14/20 05:10 06:04 07:31 MCV RDW 18.4 H Plt Count 133 L Seg Neuts % (Manual) 93.0 H Lymphocytes % (Manual) 3.0 L Monocytes % (Manual) Basophils % (Manual) 2.0 H Lymphocytes # (Manual) 0.2 L Basophils # (Manual) 0.2 H APTT D-Dimer ABG pH POC ABG pCO2 POC ABG pO2 ABG pO2 ABG HCO3 ABG O2 Saturation ABG Base Excess ABG Hemoglobin ABG Oxyhemoglobin ABG Sodium ABG Potassium ABG Chloride ABG Glucose Sodium Potassium Chloride Carbon Dioxide BUN Glucose POC Glucose 61 L 150 H Lactic Acid Ferritin Total Bilirubin AST ALT Alkaline Phosphatase Lactate Dehydrogenase Troponin T C-Reactive Protein NT-Pro-B Natriuret Pep Albumin Prealbumin HDL Cholesterol Arterial Blood Glucose Coronavirus (PCR) 08/14/20 08/14/20 08/14/20 07:31 10:30 10:30 MCV RDW Plt Count Seg Neuts % (Manual) Lymphocytes % (Manual) Monocytes % (Manual) Basophils % (Manual) Lymphocytes # (Manual) Basophils # (Manual) APTT D-Dimer ABG pH POC ABG pCO2 POC ABG pO2 ABG pO2 ABG HCO3 ABG O2 Saturation ABG Base Excess ABG Hemoglobin ABG Oxyhemoglobin ABG Sodium ABG Potassium ABG Chloride ABG Glucose Sodium Potassium 5.1 H Chloride Carbon Dioxide BUN 43 H Glucose 119 H POC Glucose Lactic Acid Ferritin 1932.0 H Total Bilirubin 2.40 H AST 157 H ALT 98 H Alkaline Phosphatase Lactate Dehydrogenase 462 H Troponin T C-Reactive Protein 4.70 H NT-Pro-B Natriuret Pep Albumin 3.3 L Prealbumin HDL Cholesterol Arterial Blood Glucose Coronavirus (PCR) 08/14/20 08/14/20 08/14/20 14:52 17:58 19:41 MCV RDW Plt Count Seg Neuts % (Manual) Lymphocytes % (Manual) Monocytes % (Manual) Basophils % (Manual) Lymphocytes # (Manual) Basophils # (Manual) APTT D-Dimer ABG pH POC ABG pCO2 POC ABG pO2 ABG pO2 ABG HCO3 ABG O2 Saturation ABG Base Excess ABG Hemoglobin ABG Oxyhemoglobin ABG Sodium ABG Potassium ABG Chloride ABG Glucose Sodium Potassium Chloride Carbon Dioxide BUN Glucose POC Glucose 125 H 108 H 116 H Lactic Acid Ferritin Total Bilirubin AST ALT Alkaline Phosphatase Lactate Dehydrogenase Troponin T C-Reactive Protein NT-Pro-B Natriuret Pep Albumin Prealbumin HDL Cholesterol Arterial Blood Glucose Coronavirus (PCR) 08/14/20 08/14/20 08/14/20 20:59 23:01 Unknown MCV RDW Plt Count Seg Neuts % (Manual) Lymphocytes % (Manual) Monocytes % (Manual) Basophils % (Manual) Lymphocytes # (Manual) Basophils # (Manual) APTT D-Dimer ABG pH POC ABG pCO2 POC ABG pO2 ABG pO2 ABG HCO3 ABG O2 Saturation ABG Base Excess ABG Hemoglobin ABG Oxyhemoglobin ABG Sodium ABG Potassium ABG Chloride ABG Glucose Sodium Potassium Chloride Carbon Dioxide BUN Glucose POC Glucose 117 H 118 H Lactic Acid Ferritin Total Bilirubin AST ALT Alkaline Phosphatase Lactate Dehydrogenase Troponin T C-Reactive Protein NT-Pro-B Natriuret Pep Albumin Prealbumin HDL Cholesterol Arterial Blood Glucose Coronavirus (PCR) Positive A
[2020-08-15] MEDS: ACETAMINOPHEN 325 MG/10.15 ML ORAL LIQD UNIT DOSE PO PRN (14:49)
[2020-08-15 15:50] LABS: BUN/Creatinine Ratio 41; Blood Urea Nitrogen 41 mg/dL (7-17); Calcium 9.7 mg/dL (8.4-10.2); Hemolysis Index 89
[2020-08-15] MEDS: VANCOMYCIN/NS 1 GM/250 ML 1 GM/250 ML BAG IV SCH (21:43)
--- NOTE | 2020-08-15 23:23 | Progress Note ---
Assessment and Plan Critical care statement The high probability OF a clinically significant sudden or life-threatening deterioration of the cardiorespiratory system and endocrine system required my full and direct attention, intervention and postoperative management. The aggregate critical care time was 40 minutes. The time is in addition to time spent performing reported procedures but includes the followin: Data review and interpretation 2: Patient assessment and monitoring of vital signs 3: Documentation 4:: Medication orders and management - Patient Problems (1) Acute respiratory failure with hypoxia Current Visit: Yes Status: Acute Plan to address problem: Patient intubated Weaning in progress (2) Sepsis Current Visit: Yes Status: Acute Plan to address problem: Sepsis highly likely Lactic acid is high White blood cell count is normal ID consult appreciated Procalcitonin requested (3) Aspiration pneumonia Current Visit: Yes Status: Acute Qualifiers: Lung location: lower lobe of lung Plan to address problem: Highly likely aspiration pneumonia Patient initiated on IV cefepime and vancomycin ID consult requested (4) COPD (chronic obstructive pulmonary disease) Current Visit: Yes Status: Chronic Qualifiers: Chronic bronchitis type: mixed simple and mucopurulent Plan to address problem: Duo nebs [id number] IV antibiotics and IV Solu-Medrol initiated (5) CHF (congestive heart failure) Current Visit: No Status: Acute Qualifiers: Heart failure type: systolic Heart failure chronicity: acute Qualified Code(s): I50.21 - Acute systolic (congestive) heart failure Plan to address problem: BNP is high Blood pressure is low Lasix to be used judiciously (6) Hypotension Current Visit: Yes Status: Acute Plan to address problem: Pressors if necessary Possible Ativan effect (7) T2DM (type 2 diabetes mellitus) Current Visit: Yes Status: Chronic Qualifiers: Diabetes mellitus long term care social worker insulin use: unspecified [facility] insulin use status Plan to address problem: Daughter says there is no diabetes in patient's past medical history Check hemoglobin A1c next Accu-Cheks and high-dose sliding scale coverage next Humalog mix initiated (8) History of pulmonary embolism Current Visit: Yes Status: Chronic Plan to address problem: Patient apparently had PE and DVT in July beginning and was initiated on Eliquis As per daughter Eliquis was stopped because of GI bleed Daughter is a very poor historian Patient on heparin 5000 every 12 (9) Subdural hematoma, chronic Current Visit: Yes Status: Chronic Plan to address problem: Was treated in 2015 with a shantel holes No residual SDH (10) DVT prophylaxis Current Visit: Yes Status: Acute Plan to address problem: On heparin and GI prophylaxis Subjective Date of service: 08/15/20 Principal diagnosis: COVID Interval history: 80-year-old -Tajik female with recent Covid infection and acute respiratory failure was admitted to [facility] On 07/19/2020 and discharged on 07/24/2020. Patient was discharged home with no home oxygen as her sats were fine on room air. And ambulatory sats were also good. Patient is active and does her ADLs by herself with small help. Patient was having difficulty with breathing and EMS was called. Oxygen saturations were in the 70s. While attempting to place the patient on CPAP patient recorded and ACLS protocol was initiated. Patient was also went into ventricular tachycardia. Patient was given IV epinephrine because of the ACLS protocol. With return of spontaneous circulation. Patient was intubated on the field and was brought to the emergency room for further evaluation. On arrival in the emergency room patient was kept on ventilator and work-up was initiated. Patient had a ABG showing respiratory failure and metabolic acidosis. No acute infiltrates on the chest x-ray. As chronic interstitial markings. Patient being admitted for acute respiratory failure and hypertension with possible sepsis. History was given by her daughter who lives in [place] Her stay from July 19 to July 24, 2020 was reviewed. Patient had Covid pneumonia and acute kidney failure and syncope. Creatinine was corrected from 2.0 to normal. Day #2 S/p cardiac arrest Possible V. tach Possible aspiration pneumonia Day #3 08/15/2020 No significant interval change Possible extubation tomorrow Objective - Exam Narrative Exam: Patient is intubated Hypotensive - Constitutional Vitals: Vital Signs - 12hr 08/15/20 08/15/20 08/15/20 11:30 11:41 11:43 Temperature Pulse Rate 79 Pulse Rate [ 94 H Bilateral] Pulse Rate [ 98 H Throughout] Respiratory 12 Rate Respiratory 20 Rate [Bilateral ] Respiratory Rate [Lower Back] Respiratory 20 Rate [ Throughout] Blood Pressure 117/64 O2 Sat by Pulse 99 96 Oximetry 08/15/20 08/15/20 08/15/20 12:00 12:30 13:00 Temperature 98.5 F Pulse Rate 78 76 79 Pulse Rate [ Bilateral] Pulse Rate [ Throughout] Respiratory 12 12 15 Rate Respiratory Rate [Bilateral ] Respiratory Rate [Lower Back] Respiratory Rate [ Throughout] Blood Pressure 124/66 112/66 118/68 O2 Sat by Pulse 99 100 100 Oximetry 08/15/20 08/15/20 08/15/20 13:30 14:00 14:34 Temperature Pulse Rate 81 83 89 Pulse Rate [ Bilateral] Pulse Rate [ Throughout] Respiratory 13 13 Rate Respiratory Rate [Bilateral ] Respiratory Rate [Lower Back] Respiratory Rate [ Throughout] Blood Pressure 111/59 114/63 114/63 O2 Sat by Pulse 99 99 Oximetry 08/15/20 08/15/20 08/15/20 14:49 15:00 15:31 Temperature Pulse Rate 83 90 Pulse Rate [ Bilateral] Pulse Rate [ Throughout] Respiratory 14 15 16 Rate Respiratory Rate [Bilateral ] Respiratory Rate [Lower Back] Respiratory Rate [ Throughout] Blood Pressure 116/60 131/64 O2 Sat by Pulse 95 98 Oximetry 08/15/20 08/15/20 08/15/20 16:00 16:31 17:01 Temperature Pulse Rate 84 79 103 H Pulse Rate [ Bilateral] Pulse Rate [ Throughout] Respiratory 13 12 22 Rate Respiratory Rate [Bilateral ] Respiratory Rate [Lower Back] Respiratory Rate [ Throughout] Blood Pressure 103/53 103/53 103/53 O2 Sat by Pulse 98 97 98 Oximetry 08/15/20 08/15/20 08/15/20 17:31 18:00 18:31 Temperature Pulse Rate 83 152 H 76 Pulse Rate [ Bilateral] Pulse Rate [ Throughout] Respiratory 19 17 14 Rate Respiratory Rate [Bilateral ] Respiratory Rate [Lower Back] Respiratory Rate [ Throughout] Blood Pressure 114/55 114/63 114/63 O2 Sat by Pulse 93 98 Oximetry 08/15/20 08/15/20 08/15/20 19:00 19:31 20:00 Temperature 97.8 F Pulse Rate 77 74 76 Pulse Rate [ Bilateral] Pulse Rate [ Throughout] Respiratory 12 19 16 Rate Respiratory Rate [Bilateral ] Respiratory Rate [Lower Back] Respiratory Rate [ Throughout] Blood Pressure 107/57 107/57 107/57 O2 Sat by Pulse 98 99 100 Oximetry 08/15/20 08/15/20 08/15/20 20:31 21:00 21:31 Temperature Pulse Rate 73 78 72 Pulse Rate [ Bilateral] Pulse Rate [ Throughout] Respiratory 11 L 15 15 Rate Respiratory Rate [Bilateral ] Respiratory Rate [Lower Back] Respiratory Rate [ Throughout] Blood Pressure 114/62 114/63 114/63 O2 Sat by Pulse 99 99 100 Oximetry 08/15/20 08/15/20 08/15/20 21:39 22:00 22:01 Temperature Pulse Rate 76 71 Pulse Rate [ Bilateral] Pulse Rate [ Throughout] Respiratory 15 Rate Respiratory Rate [Bilateral ] Respiratory 14 Rate [Lower Back] Respiratory Rate [ Throughout] Blood Pressure 124/61 O2 Sat by Pulse 100 100 Oximetry 08/15/20 22:31 Temperature Pulse Rate 76 Pulse Rate [ Bilateral] Pulse Rate [ Throughout] Respiratory 17 Rate Respiratory Rate [Bilateral ] Respiratory Rate [Lower Back] Respiratory Rate [ Throughout] Blood Pressure 124/61 O2 Sat by Pulse 99 Oximetry General appearance: Present: no acute distress, well-nourished - EENT Eyes: PERRL, EOM intact ENT: hearing intact, clear oral mucosa Ears: bilateral: normal - Neck Neck: supple, normal ROM - Respiratory Respiratory effort: normal Respiratory: bilateral: CTA - Breasts Breasts: normal - Cardiovascular Heart rate: 78 Rhythm: regular Heart Sounds: Present: S1 & S2. Absent: gallop, rub Extremities: pulses intact, No edema, normal color, Full ROM - Gastrointestinal General gastrointestinal: Present: soft, non-tender, non-distended, normal bowel sounds - Genitourinary Female genitourinary: normal - Integumentary Integumentary: clear, warm, dry - Musculoskeletal Musculoskeletal: 1, strength equal bilaterally - Neurologic Neurologic: moves all extremities - Psychiatric Psychiatric: other (Patient intubated) - Labs CBC & Chem 7: 08/14/20 07:31 08/18/20 05:59 Labs: Abnormal lab results 08/14/20 08/14/20 08/14/20 Range/Units 19:41 20:59 23:01 Chloride (98-107) mmol/L Carbon Dioxide (22-30) mmol/L BUN (7-17) mg/dL Glucose (65-100) mg/dL POC Glucose 116 H 117 H 118 H (70-105) mg/dL 08/15/20 08/15/20 08/15/20 Range/Units 03:31 07:51 11:56 Chloride (98-107) mmol/L Carbon Dioxide (22-30) mmol/L BUN (7-17) mg/dL Glucose (65-100) mg/dL POC Glucose 169 H 145 H 158 H (70-105) mg/dL 08/15/20 08/15/20 08/15/20 Range/Units 15:07 17:46 22:26 Chloride 107.2 H (98-107) mmol/L Carbon Dioxide 17 L (22-30) mmol/L BUN 41 H (7-17) mg/dL Glucose 156 H (65-100) mg/dL POC Glucose 146 H 135 H (70-105) mg/dL HEART Score - HEART Score Age: > 65 Risk factors: > 3 risk factors or hx of atherosclerotic disease Troponin: Troponin T < 0.010 ng/mL (0.00-0.029) 08/13/20 Unknown Troponin: 1-3x normal limit - Critical Actions Critical Actions: 4-6 pts:12-16.6% risk of adverse cardiac event. Should be admitted
[2020-08-16] MEDS: INSULIN LISPRO 100 UNIT/ML SUB-Q SCH ×3 (06:28→18:15)
--- NOTE | 2020-08-16 12:23 | Progress Note ---
Assessment and Plan Cultures: Blood culture no growth today SARS CoV2 PCR positive BAL 08/13/2020 normal respiratory soren Assessment: 80 years old female with history of CHF, diabetes mellitus, COPD, hypertension, previous pulmonary embolism, A. fib, recent Covid pneumonia with hypoxia admitted to [facility] from 07/19/2020 2 07/24/2020, treated with remdesivir and Decadron found to have bilateral DVTs and AKA, is now readmitted on 08/13/2020 secondary to acute respiratory distress, experienced cardiac arrest with V. tach, patient underwent ACLS was intubated on the field: #Severe sepsis septic shock versus cardiogenic shock/out of hospital cardiac arrest: Present on admission with hypothermia, tachycardia, hypotension, elevated lactate likely secondary to recent out of hospital cardiac arrest. Etiology unclear likely related to recent COVID-19 pneumonia with cytokine storm. Urinalysis negative. #Critical COVID pneumonia versus bacterial pneumonia: Likely cytokine storm post COVID. The possibility of bacterial aspiration pneumonia is also in the differential. CT chest shows bilateral infiltrates. No pulmonary embolism seen. Repeat chest x-ray with bilateral mild interstitial opacities. Elevated markers, including D-dimer 8000. #Acute hypoxemic respiratory failure: Patient intubated on the field during cardiac arrest and resuscitation. Self extubated, now 3 L nasal cannula. #Elevated LFTs: from COVID/shock, remains elevated #KATHY: from cardiac arrest, shock #Recent bilateral leg DVT: #Acute encephalopathy: Post cardiac arrest ? Improving. Recommendations: -Follow-up blood cultures -Continue cefepime renally adjusted and vancomycin with PK consult for now D3 of 7 -Check MRSA PCR pending/reorder today -Continue steroids for now -No indication for remdesivir, patient received a course of remdesivir during recent admission, currently outside of therapeutic window -Monitor inflammatory markers - ferritin, Ddimer, CRP, LDH, ordered today -Continue anticoagulation per System Protocol All laboratory, cultures and imaging were reviewed. Dr Snowden rounding this weekend Will follow Izzy Ortiz MD Infectious Diseases Software Design Engineer [facility] M [phone] O [phone] Subjective Date of service: 08/16/20 Principal diagnosis: COVID Interval history: Patient remains on 3 L nasal cannula, no desaturation, no fever. Objective - Exam Narrative Exam: General appearance: Alert in NAD on nasal cannula O2 Eyes: anicteric sclerae, moist conjunctivae; no lid-lag; PERRLA HENT: Normocephalic, Atraumatic; normal external ears, nares open, oropharynx limited Neck: supple, tracheal midline, no JVD Lungs: Bilateral rhonchi CV: RRR no murmur Abdomen: Soft, non-tender Extremities: no edema, no cyanosis Skin: No rash. Psych: no agitated Neuro: alert and oriented x [address] - Constitutional Vitals: Vital Signs Temp Pulse Resp BP Pulse Ox 97.4 F L 76 14 122/67 100 08/16/20 04:00 08/16/20 07:00 08/16/20 07:00 08/16/20 07:00 08/16/20 07:00 Temperature -Last 24 Hours Temperature 97.4 F Temperature 97.8 F - Labs CBC & Chem 7: 08/14/20 07:31 08/15/20 15:07 Labs: Abnormal lab results 08/15/20 08/15/20 08/15/20 Range/Units 15:07 17:46 22:26 Chloride 107.2 H (98-107) mmol/L Carbon Dioxide 17 L (22-30) mmol/L BUN 41 H (7-17) mg/dL Glucose 156 H (65-100) mg/dL POC Glucose 146 H 135 H (70-105) mg/dL 08/16/20 Range/Units 01:57 Chloride (98-107) mmol/L Carbon Dioxide (22-30) mmol/L BUN (7-17) mg/dL Glucose (65-100) mg/dL POC Glucose 120 H (70-105) mg/dL
[2020-08-16] MEDS: ENOXAPARIN 60 MG/0.6 ML INJ SUB-Q SCH ×2 (13:05→23:57)
[2020-08-16] MEDS: CEFEPIME/NS 2 GM/100 ML 2 GM/100 ML BAG IV SCH ×2 (13:06→23:58)
[2020-08-16] MEDS: FAMOTIDINE 20 MG/2 ML INJ IV SCH (13:06)
[2020-08-16 14:15] LABS: C-Reactive Protein 2.5 mg/dL (0.00-1.30)
--- NOTE | 2020-08-16 15:04 | Progress Note ---
Assessment and Plan Critical care statement The high probability OF a clinically significant sudden or life-threatening deterioration of the cardiorespiratory system and endocrine system required my full and direct attention, intervention and postoperative management. The aggregate critical care time was 32 minutes. The time is in addition to time spent performing reported procedures but includes the followin: Data review and interpretation 2: Patient assessment and monitoring of vital signs 3: Documentation 4:: Medication orders and management - Patient Problems (1) Acute respiratory failure with hypoxia Current Visit: Yes Status: Acute Plan to address problem: Patient intubated Patient initiated on IV cefepime and vancomycin for possible aspiration pneumonia Patient initiated on IV steroids Patient initiated on duo nebs [id number] and every 3 hours President Sales And Marketing consult requested (2) Sepsis Current Visit: Yes Status: Acute Plan to address problem: Sepsis highly likely Lactic acid is high White blood cell count is normal ID consult requested Procalcitonin requested (3) Aspiration pneumonia Current Visit: Yes Status: Acute Qualifiers: Lung location: lower lobe of lung Plan to address problem: Highly likely aspiration pneumonia Patient initiated on IV cefepime and vancomycin ID consult requested (4) COPD (chronic obstructive pulmonary disease) Current Visit: No Status: Chronic Qualifiers: Chronic bronchitis type: mixed simple and mucopurulent Plan to address problem: Duo nebs [id number] IV antibiotics and IV Solu-Medrol initiated (5) CHF (congestive heart failure) Current Visit: No Status: Acute Qualifiers: Heart failure type: systolic Heart failure chronicity: acute Qualified Code(s): I50.21 - Acute systolic (congestive) heart failure Plan to address problem: BNP is high Blood pressure is low Lasix to be used judiciously (6) Hypotension Current Visit: Yes Status: Acute Plan to address problem: Pressors if necessary Possible Ativan effect (7) T2DM (type 2 diabetes mellitus) Current Visit: Yes Status: Chronic Qualifiers: Diabetes mellitus alf insulin use: unspecified alf insulin use status Plan to address problem: Daughter says there is no diabetes in patient's past medical history Check hemoglobin A1c next Accu-Cheks and high-dose sliding scale coverage next Humalog mix initiated (8) History of pulmonary embolism Current Visit: Yes Status: Chronic Plan to address problem: Patient apparently had PE and DVT in July beginning and was initiated on Eliquis As per daughter Eliquis was stopped because of GI bleed Daughter is a very poor historian Patient on heparin 5000 every 12 (9) Subdural hematoma, chronic Current Visit: Yes Status: Chronic Plan to address problem: Was treated in 2016 with a shantel holes No residual SDH (10) DVT prophylaxis Current Visit: Yes Status: Acute Plan to address problem: On heparin and GI prophylaxis Subjective Date of service: 08/16/20 Principal diagnosis: COVID Objective - Exam Narrative Exam: Patient is intubated Hypotensive - Constitutional Vitals: Vital Signs - 12hr 08/16/20 08/16/20 08/16/20 03:00 03:31 04:00 Temperature 97.4 F L Pulse Rate 76 79 80 Respiratory 15 20 16 Rate Blood Pressure 128/68 137/74 O2 Sat by Pulse 96 93 98 Oximetry 08/16/20 08/16/20 08/16/20 04:31 05:01 05:31 Temperature Pulse Rate 78 90 83 Respiratory 18 18 20 Rate Blood Pressure 137/74 137/74 140/69 O2 Sat by Pulse 98 94 98 Oximetry 08/16/20 08/16/20 08/16/20 06:00 06:31 07:00 Temperature Pulse Rate 81 91 H 76 Respiratory 15 14 Rate Blood Pressure 126/75 126/75 122/67 O2 Sat by Pulse 100 99 100 Oximetry 08/16/20 08/16/20 10:00 12:00 Temperature 97.4 F L Pulse Rate Respiratory Rate Blood Pressure O2 Sat by Pulse 99 Oximetry General appearance: Present: no acute distress, well-nourished - EENT Eyes: PERRL, EOM intact ENT: hearing intact, clear oral mucosa Ears: bilateral: normal - Neck Neck: supple, normal ROM - Respiratory Respiratory effort: normal Respiratory: bilateral: CTA - Breasts Breasts: normal - Cardiovascular Rhythm: regular Heart Sounds: Present: S1 & S2. Absent: gallop, rub Extremities: pulses intact, No edema, normal color, Full ROM - Gastrointestinal General gastrointestinal: Present: soft, non-tender, non-distended, normal bowel sounds - Genitourinary Female genitourinary: normal - Integumentary Integumentary: clear, warm, dry - Musculoskeletal Musculoskeletal: 1, strength equal bilaterally - Neurologic Neurologic: moves all extremities - Psychiatric Psychiatric: memory intact, appropriate mood/affect, intact judgment & insight - Labs CBC & Chem 7: 08/14/20 07:31 08/15/20 15:07 Labs: Abnormal lab results 08/15/20 08/15/20 08/15/20 Range/Units 15:07 17:46 22:26 D-Dimer (0-234) ng/mlDDU Chloride 107.2 H (98-107) mmol/L Carbon Dioxide 17 L (22-30) mmol/L BUN 41 H (7-17) mg/dL Glucose 156 H (65-100) mg/dL POC Glucose 146 H 135 H (70-105) mg/dL Ferritin (10.0-200.0) ng/mL Lactate Dehydrogenase (91-180) units/L C-Reactive Protein (0.00-1.30) mg/dL 08/16/20 08/16/20 08/16/20 Range/Units 01:57 13:10 13:10 D-Dimer 2645.36 H (0-234) ng/mlDDU Chloride (98-107) mmol/L Carbon Dioxide (22-30) mmol/L BUN (7-17) mg/dL Glucose (65-100) mg/dL POC Glucose 120 H (70-105) mg/dL Ferritin 667.5 H (10.0-200.0) ng/mL Lactate Dehydrogenase (91-180) units/L C-Reactive Protein (0.00-1.30) mg/dL 08/16/20 Range/Units 13:10 D-Dimer (0-234) ng/mlDDU Chloride (98-107) mmol/L Carbon Dioxide (22-30) mmol/L BUN (7-17) mg/dL Glucose (65-100) mg/dL POC Glucose (70-105) mg/dL Ferritin (10.0-200.0) ng/mL Lactate Dehydrogenase 283 H (91-180) units/L C-Reactive Protein 2.50 H (0.00-1.30) mg/dL HEART Score - HEART Score Age: > 65 Risk factors: > 3 risk factors or hx of atherosclerotic disease Troponin: Troponin T < 0.010 ng/mL (0.00-0.029) 08/13/20 Unknown Troponin: 1-3x normal limit - Critical Actions Critical Actions: 4-6 pts:12-16.6% risk of adverse cardiac event. Should be admitted
--- NOTE | 2020-08-16 16:02 | Consultation ---
History of Present Illness Consult date: 08/16/20 Requesting physician: SYBIL PEREZ Consult reason: tachycardia History of present illness: The pt is an 80 YO female with a past medical history of dilated NICMP, has chronically declined AICD, paroxysmal atrial fibrillation, anticoagulated with Eliquis, acute on chronic DVT, PE, GI bleed due to AVM (2017), RBBB, COPD, HTN, DM, recent COVID-19 pneumonia in 07/2020 (discharged 07/24/2020). She has been seen in our office in the past by Dr. Petersen and by our practice on multiple prior hospitalizations. Pt is lethargic, poor historian, and thus HPI is obtained per the chart. Pt presented on 08/13/2020 for evaluation following reported cardiac arrest in the field. Per the chart, pt was having difficulty with breathing and EMS was called. Oxygen saturations were in the 70s. While attempting to place the patient on CPAP patient coded (reported rhythm of VT) and ACLS protocol was initiated. Eventual ROSC obtained, pt intubated in the field and transported to ED. She has subsequently been extubated. COVID-19 testing is positive, pt has been diagnosed with suspected aspiration PNA. RHC and LHC done 11/2017 showed angiographically normal coronaries, EF 25%, right atrial 13 mmHg, right ventricle 73/28 mmHg, coronary artery 73 over 8 mmHg, pulmonary capillary wedge 23 mmHg, cardiac index 1.46. tte done 05/2018 showed EF 20-25%, pseudonormalization, LA severely dilated, RV mild to mod dilated, RV systolic function mildly reduced, mod AR, mod to severe MR, mild to mod TR, pulm HTN with RVSP 61mmHg. Past History Past Medical History: other (as per HPI) Medications and Allergies Allergies Allergy/AdvReac Type Severity Reaction Status Date / Time ramipril Allergy Unknown Verified 06/15/18 12:45 Home Medications Medication Instructions Recorded Confirmed Last Taken Type Aspirin [Aspirin BABY CHEW TAB] 81 mg PO DAILY 03/14/18 07/23/20 Unknown History Carvedilol [Coreg] 3.125 mg PO DAILY 03/14/18 07/23/20 Unknown History Docusate Sodium [Stool Softener] 100 mg PO DAILY 03/14/18 07/23/20 Unknown History Spironolactone 25 mg PO DAILY 03/14/18 07/23/20 Unknown History Pantoprazole [Protonix TAB] 40 mg PO QDAY #30 tablet 06/18/18 07/23/20 Unknown Rx polyethylene glycoL 3350 [Miralax 17 gm PO BID PRN #20 powd.pack 06/18/18 07/23/20 Unknown Rx 3350] Antacid [Alum-Mag Hydrox-Simeth 15 ml PO Q4H PRN oral.liqd 07/24/20 Unknown Rx [id number]/5Ml] Apixaban [Eliquis] 2.5 mg PO Q12HR #60 tablet 07/24/20 Unknown Rx Ascorbic Acid [Vitamin C] 500 mg PO DAILY #30 tablet 07/24/20 Unknown Rx Zinc Sulfate 220 mg PO QDAY #30 capsule 07/24/20 Unknown Rx dexAMETHasone [Dexamethasone] 6 mg PO DAILY #6 tablet 07/24/20 Unknown Rx traMADoL [Ultram 50 MG tab] 50 mg PO Q4H PRN #6 tablet 07/24/20 Unknown Rx Active Meds: Active Medications Acetaminophen (Acetaminophen 325 Mg/10.15 Ml Oral Liqd Unit Dose) 650 mg PO Q6H PRN PRN Reason: Pain, Mild (1-3) Last Admin: 08/15/20 14:49 Dose: 650 mg Documented by: Albuterol (Albuterol 2.5 Mg/3 Ml Nebu) 2.5 mg IH Q4HRT PRN PRN Reason: Shortness Of Breath Lipase/Protease/Amylase (Lipase 10,500/Protease 25,000/Amylase 43,750 (Units) Dr Watkins) 1 each FEEDTUBE PRN PRN PRN Reason: For Clogged Feeding Tube Enoxaparin Sodium (Enoxaparin 60 Mg/0.6 Ml Inj) 60 mg SUB-Q Q12HR [facility] Last Admin: 08/16/20 13:05 Dose: 60 mg Documented by: Famotidine (Famotidine 20 Mg/2 Ml Inj) 20 mg IV DAILY [facility] Last Admin: 08/16/20 13:06 Dose: 20 mg Documented by: Vancomycin HCl (Vancomycin/Ns 1 Gm/250 Ml) 1 gm in 250 mls @ 250 mls/hr IV Q24H [facility] Last Infusion: 08/15/20 22:44 Dose: Infused Documented by: Cefepime HCl (Cefepime/Ns 2 Gm/100 Ml) 2 gm in 100 mls @ 200 mls/hr IV Q12H [facility]; Protocol Stop: 08/20/20 20:29 Last Admin: 08/16/20 13:06 Dose: 200 mls/hr Documented by: Insulin Human Lispro (Insulin Lispro 100 Unit/Ml) 0 unit SUB-Q Q6HR [facility]; Protocol Last Admin: 08/16/20 13:06 Dose: Not Given Documented by: Ondansetron HCl (Ondansetron 4 Mg/2 Ml Inj) 4 mg IV Q8H PRN PRN Reason: Nausea And Vomiting Sodium Chloride (Sodium Chloride 0.9% 10 Ml Flush Syringe) 10 ml IV BID ALEXANDER Last Admin: 08/16/20 13:06 Dose: 10 ml Documented by: Sodium Chloride (Sodium Chloride 0.9% 10 Ml Flush Syringe) 10 ml IV PRN PRN PRN Reason: LINE FLUSH Last Admin: 08/14/20 00:06 Dose: 10 ml Documented by: Review of Systems ROS unobtainable: due to mental status Physical Examination Vital Signs Pulse Resp BP Pulse Ox 104 H 18 127/67 96 08/13/20 12:47 08/13/20 12:47 08/13/20 12:47 08/13/20 12:47 General appearance: other (lethargic, NAD) HEENT: Positive: PERRL Neck: Positive: neck supple, trachea midline Cardiac: Positive: Reg Rate and Rhythm, S1/S2 Lungs: Positive: Decreased Breath Sounds Neuro: Positive: Other (lethargic ) Abdomen: Negative: Tender Skin: Negative: Rash Musculoskeletal: No Pain Extremities: Absent: edema Results 08/14/20 07:31 08/15/20 15:07 Cardiac Enzymes 08/16/20 Range/Units 13:10 Lactate Dehydrogenase 283 H (91-180) units/L - Imaging and Cardiology Echo: report reviewed (05/2018 showed EF 20-25%, pseudonormalization, LA severely dilated, RV mild to mod dilated, RV systolic function mildly reduced, mod AR, mod to severe MR, mild to mod TR, pulm HTN with RVSP 61mmHg. ) Cardiac cath: report reviewed (RHC and LHC done 11/2017 showed angiographically normal coronaries, EF 25%, right atrial 13 mmHg, right ventricle 73/28 mmHg, coronary artery 73 over 8 mmHg, pulmonary capillary wedge 23 mmHg, cardiac index 1.46.) EKG: report reviewed, image reviewed EKG interpretations - Telemetry EKG Rhythm: Sinus Rhythm - EKG Sinus rhythms and dysrhythmias: sinus rhythm AV and intraventricular conduction: right bundle branch block Assessment and Plan Per chart, pt presented with cardiopulmonary arrest - VT reportedly seen in the field, no strips available for review, unclear if VT actually occurred. Currently stable cardiac status. Pt has been extubated. She is currently in NSR with RBBB and freq PACs on telemetry. Since admission, she is noted to have had several bouts of paroxysmal SVT with RBBB (requiring IV cardizem per critical care) which could have been been interpreted as VT in the field. Initiate BB and losartan. Agree with full dosage lovenox at this time and plan to convert back to home Eliquis prior to discharge. Obtain tte. Pt has h/o normal coronaries per [facility] in 2018. Can consider repeat ischemic evaluation if indicated and/or if VT is documented. Of note, pt has chronically declined AICD. Will follow. The patient has been seen in conjunction with Dr. Selwyn Delarosa who agrees with the assessment and plan of care. - Patient Problems (1) Cardiopulmonary arrest Current Visit: Yes Status: Acute Plan to address problem: with ? VT in the field - no strips available for review (2) Paroxysmal atrial fibrillation with rapid ventricular response Current Visit: Yes Status: Acute (3) COVID-19 virus infection Current Visit: Yes Status: Acute (4) History of DVT (deep vein thrombosis) Current Visit: Yes Status: Chronic (5) History of pulmonary embolism Current Visit: Yes Status: Chronic (6) Nonischemic cardiomyopathy Current Visit: Yes Status: Chronic (7) RBBB Current Visit: Yes Status: Chronic (8) COPD (chronic obstructive pulmonary disease) Current Visit: Yes Status: Chronic Qualifiers: Chronic bronchitis type: mixed simple and mucopurulent (9) HTN (hypertension) Current Visit: Yes Status: Chronic (10) Diabetes Current Visit: Yes Status: Chronic
[2020-08-16] MEDS: VANCOMYCIN/NS 1 GM/250 ML 1 GM/250 ML BAG IV SCH (23:58)
[2020-08-16] MEDS: METOPROLOL TARTRATE 25 MG TAB PO SCH (23:58)
[2020-08-17] MEDS: INSULIN LISPRO 100 UNIT/ML SUB-Q SCH ×3 (06:48→17:45)
[2020-08-17] MEDS: LOSARTAN 25 MG TAB PO SCH (09:43)
[2020-08-17] MEDS: METOPROLOL TARTRATE 25 MG TAB PO SCH ×3 (09:43→21:56)
[2020-08-17] MEDS: ENOXAPARIN 60 MG/0.6 ML INJ SUB-Q SCH ×2 (09:44→21:55)
[2020-08-17] MEDS: FAMOTIDINE 20 MG/2 ML INJ IV SCH (09:44)
[2020-08-17] MEDS: CEFEPIME/NS 2 GM/100 ML 2 GM/100 ML BAG IV SCH ×2 (09:44→22:00)
--- NOTE | 2020-08-17 21:41 | Progress Note ---
Assessment and Plan Critical care statement The high probability OF a clinically significant sudden or life-threatening deterioration of the cardiorespiratory system and endocrine system required my full and direct attention, intervention and postoperative management. The aggregate critical care time was 32 minutes. The time is in addition to time spent performing reported procedures but includes the followin: Data review and interpretation 2: Patient assessment and monitoring of vital signs 3: Documentation 4:: Medication orders and management - Patient Problems (1) Acute respiratory failure with hypoxia Current Visit: Yes Status: Acute Plan to address problem: Patient is extubated (2) Sepsis Current Visit: Yes Status: Acute Plan to address problem: Continue IV antibiotics (3) Aspiration pneumonia Current Visit: Yes Status: Acute Qualifiers: Lung location: lower lobe of lung Plan to address problem: Highly likely aspiration pneumonia Patient initiated on IV cefepime and vancomycin ID consult requested (4) COPD (chronic obstructive pulmonary disease) Current Visit: Yes Status: Chronic Qualifiers: Chronic bronchitis type: mixed simple and mucopurulent Plan to address problem: Duo nebs [id number] IV antibiotics and IV Solu-Medrol initiated (5) CHF (congestive heart failure) Current Visit: No Status: Acute Qualifiers: Heart failure type: systolic Heart failure chronicity: acute Qualified Code(s): I50.21 - Acute systolic (congestive) heart failure Plan to address problem: BNP is high Blood pressure is low Lasix to be used judiciously (6) Hypotension Current Visit: Yes Status: Acute Plan to address problem: Pressors if necessary Possible Ativan effect (7) T2DM (type 2 diabetes mellitus) Current Visit: Yes Status: Chronic Qualifiers: 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 Plan to address problem: Daughter says there is no diabetes in patient's past medical history Check hemoglobin A1c next Accu-Cheks and high-dose sliding scale coverage next Humalog mix initiated (8) History of pulmonary embolism Current Visit: Yes Status: Chronic Plan to address problem: Patient apparently had PE and DVT in July beginning and was initiated on Eliquis As per daughter Eliquis was stopped because of GI bleed Daughter is a very poor historian Patient on heparin 5000 every 12 (9) Subdural hematoma, chronic Current Visit: Yes Status: Chronic Plan to address problem: Was treated in 2016 with a shantel holes No residual SDH (10) Paroxysmal A-fib Current Visit: Yes Status: Chronic Plan to address problem: On Lovenox 60 mg subcu every 12 Will resume Eliquis at the time of discharge (11) DVT prophylaxis Current Visit: Yes Status: Acute Plan to address problem: On heparin and GI prophylaxis Subjective Date of service: 08/17/20 Principal diagnosis: COVID Interval history: 80-year-old -[place] female with recent Covid infection and acute respiratory failure was admitted to [facility] On 07/19/2020 and discharged on 07/24/2020. Patient was discharged home with no home oxygen as her sats were fine on room air. And ambulatory sats were also good. Patient is active and does her ADLs by herself with small help. Patient was having difficulty with breathing and EMS was called. Oxygen saturations were in the 70s. While attempting to place the patient on CPAP patient recorded and ACLS protocol was initiated. Patient was also went into ventricular tachycardia. Patient was given IV epinephrine because of the ACLS protocol. With return of spontaneous circulation. Patient was intubated on the field and was brought to the emergency room for further evaluation. On arrival in the emergency room patient was kept on ventilator and work-up was initiated. Patient had a ABG showing respiratory failure and metabolic acidosis. No acute infiltrates on the chest x-ray. As chronic interstitial markings. Patient being admitted for acute respiratory failure and hypertension with possible sepsis. History was given by her daughter who lives in [place] Her stay from July 19 to July 24, 2020 was reviewed. Patient had Covid pneumonia and acute kidney failure and syncope. Creatinine was corrected from 2.0 to normal. Day #2 S/p cardiac arrest Possible V. tach Possible aspiration pneumonia Day #3 08/15/2020 No significant interval change Possible extubation tomorrow Day #4 08/16/2020 Patient extubated today Post extubation patient doing well Day #5 08/17/2020 Post extubation patient doing well Objective - Exam Narrative Exam: Patient is intubated Hypotensive - Constitutional Vitals: Vital Signs - 12hr 08/17/20 08/17/20 08/17/20 09:43 10:01 10:31 Temperature Pulse Rate 69 84 68 Respiratory 18 16 Rate Blood Pressure 130/79 130/79 130/79 O2 Sat by Pulse Oximetry 08/17/20 08/17/20 08/17/20 11:00 11:31 12:00 Temperature Pulse Rate 73 73 66 Respiratory 18 19 19 Rate Blood Pressure 118/63 118/63 115/57 O2 Sat by Pulse Oximetry 08/17/20 08/17/20 08/17/20 12:31 13:00 13:31 Temperature Pulse Rate 67 64 65 Respiratory 16 19 22 Rate Blood Pressure 115/57 117/66 117/66 O2 Sat by Pulse Oximetry 08/17/20 08/17/20 08/17/20 14:00 14:31 15:00 Temperature Pulse Rate 69 70 69 Respiratory 20 23 13 Rate Blood Pressure 128/76 128/76 135/82 O2 Sat by Pulse 100 Oximetry 08/17/20 08/17/20 08/17/20 15:31 16:00 16:31 Temperature Pulse Rate 68 65 72 Respiratory 17 17 18 Rate Blood Pressure 128/76 125/65 125/65 O2 Sat by Pulse Oximetry 08/17/20 08/17/20 08/17/20 17:00 17:31 18:00 Temperature Pulse Rate 74 69 76 Respiratory 14 25 H 25 H Rate Blood Pressure 123/67 123/67 123/77 O2 Sat by Pulse 94 Oximetry 08/17/20 08/17/20 08/17/20 18:31 19:00 20:00 Temperature 96.6 F L Pulse Rate 78 100 H Respiratory 17 15 Rate Blood Pressure 123/77 127/80 O2 Sat by Pulse Oximetry General appearance: Present: no acute distress, well-nourished - EENT Eyes: PERRL, EOM intact ENT: hearing intact, clear oral mucosa Ears: bilateral: normal - Neck Neck: supple, normal ROM - Respiratory Respiratory effort: normal Respiratory: bilateral: CTA - Breasts Breasts: normal - Cardiovascular Heart rate: 78 Rhythm: regular Heart Sounds: Present: S1 & S2. Absent: gallop, rub Extremities: pulses intact, No edema, normal color, Full ROM - Gastrointestinal General gastrointestinal: Present: soft, non-tender, non-distended, normal bowel sounds - Genitourinary Female genitourinary: normal - Integumentary Integumentary: clear, warm, dry - Musculoskeletal Musculoskeletal: 1, strength equal bilaterally - Neurologic Neurologic: moves all extremities - Psychiatric Psychiatric: memory intact, appropriate mood/affect, intact judgment & insight - Allied health notes Allied health notes reviewed: nursing, case management - Labs CBC & Chem 7: 08/14/20 07:31 08/18/20 05:59 Labs: Abnormal lab results 08/17/20 Range/Units 17:43 POC Glucose 67 L (70-105) mg/dL HEART Score - HEART Score Age: > 65 Risk factors: > 3 risk factors or hx of atherosclerotic disease Troponin: Troponin T < 0.010 ng/mL (0.00-0.029) 08/13/20 Unknown Troponin: 1-3x normal limit - Critical Actions Critical Actions: 4-6 pts:12-16.6% risk of adverse cardiac event. Should be admitted
[2020-08-17] MEDS: VANCOMYCIN/NS 1 GM/250 ML 1 GM/250 ML BAG IV SCH (21:55)
[2020-08-17] MEDS: ACETAMINOPHEN 325 MG/10.15 ML ORAL LIQD UNIT DOSE PO PRN (21:57)
[2020-08-18] MEDS: ACETAMINOPHEN 325 MG/10.15 ML ORAL LIQD UNIT DOSE PO PRN ×3 (06:03→18:00)
[2020-08-18] MEDS: INSULIN LISPRO 100 UNIT/ML SUB-Q SCH ×4 (06:05→17:44)
[2020-08-18 06:27] LABS: Calcium 9.8 mg/dL (8.4-10.2)
[2020-08-18] MEDS: CEFEPIME/NS 2 GM/100 ML 2 GM/100 ML BAG IV SCH ×2 (08:09→19:55)
[2020-08-18] MEDS: METOPROLOL TARTRATE 25 MG TAB PO SCH ×3 (08:10→19:56)
[2020-08-18] MEDS: LOSARTAN 25 MG TAB PO SCH (10:00)
[2020-08-18] MEDS: ENOXAPARIN 60 MG/0.6 ML INJ SUB-Q SCH ×2 (10:00→21:28)
[2020-08-18] MEDS: FAMOTIDINE 20 MG/2 ML INJ IV SCH (11:52)
--- NOTE | 2020-08-18 19:48 | Progress Note ---
Assessment and Plan - Patient Problems (1) Acute respiratory failure with hypoxia Current Visit: Yes Status: Acute Plan to address problem: Patient is extubated Post extubation doing well (2) Sepsis Current Visit: Yes Status: Acute Plan to address problem: Patient on IV cefepime and vancomycin CBC for tomorrow We will defer to ID regarding stopping antibiotics We will repeat the chest x-ray (3) Aspiration pneumonia Current Visit: Yes Status: Acute Qualifiers: Lung location: lower lobe of lung Plan to address problem: Highly likely aspiration pneumonia Patient initiated on IV cefepime and vancomycin (4) COPD (chronic obstructive pulmonary disease) Current Visit: Yes Status: Chronic Qualifiers: Chronic bronchitis type: mixed simple and mucopurulent Plan to address problem: Duo nebs [id number] IV antibiotics and IV Solu-Medrol initiated (5) CHF (congestive heart failure) Current Visit: No Status: Acute Qualifiers: Heart failure type: systolic Heart failure chronicity: acute Qualified Code(s): I50.21 - Acute systolic (congestive) heart failure Plan to address problem: BNP is high Blood pressure is low Lasix to be used judiciously (6) Hypotension Current Visit: Yes Status: Acute Plan to address problem: Blood pressure stable now (7) T2DM (type 2 diabetes mellitus) Current Visit: Yes Status: Chronic Qualifiers: Diabetes mellitus care home insulin use: unspecified long term care administrator insulin use status Plan to address problem: Daughter says there is no diabetes in patient's past medical history Coverage for now (8) History of pulmonary embolism Current Visit: Yes Status: Chronic Plan to address problem: Patient apparently had PE and DVT in July beginning and was initiated on Eliquis As per daughter Eliquis was stopped because of GI bleed Daughter is a very poor historian Patient on heparin 5000 every 12 (9) Subdural hematoma, chronic Current Visit: Yes Status: Chronic Plan to address problem: Was treated in 2016 with a shantel holes No residual SDH (10) Paroxysmal atrial fibrillation Current Visit: Yes Status: Acute Plan to address problem: Patient is on Lovenox and to be changed to Eliquis at the time of discharge (11) DVT prophylaxis Current Visit: Yes Status: Acute Plan to address problem: On Lovenox and GI prophylaxis Subjective Date of service: 08/18/20 Principal diagnosis: S/p cardiac arrest, sepsis, Covid pneumonia, paroxysmal atrial fibrillation Interval history: 80-year-old -[place] female with recent Covid infection and acute respiratory failure was admitted to [facility] On 07/19/2020 and discharged on 07/24/2020. Patient was discharged home with no home oxygen as her sats were fine on room air. And ambulatory sats were also good. Patient is active and does her ADLs by herself with small help. Patient was having difficulty with breathing and EMS was called. Oxygen saturations were in the 70s. While attempting to place the patient on CPAP patient recorded and ACLS protocol was initiated. Patient was also went into ventricular tachycardia. Patient was given IV epinephrine because of the ACLS protocol. With return of spontaneous circulation. Patient was intubated on the field and was brought to the emergency room for further evaluation. On arrival in the emergency room patient was kept on ventilator and work-up was initiated. Patient had a ABG showing respiratory failure and metabolic acidosis. No acute infiltrates on the chest x-ray. As chronic interstitial markings. Patient being admitted for acute respiratory failure and hypertension with possible sepsis. History was given by her daughter who lives in [place] Her stay from July 19 to July 24, 2020 was reviewed. Patient had Covid pneumonia and acute kidney failure and syncope. Creatinine was corrected from 2.0 to normal. Day #2 S/p cardiac arrest Possible V. tach Possible aspiration pneumonia Day #3 08/15/2020 No significant interval change Possible extubation tomorrow Day #4 08/16/2020 Patient extubated today Post extubation patient doing well Day #5 08/17/2020 Post extubation patient doing well Day #6 08/18/2020 Patient stable Patient alert but not oriented Objective - Constitutional Vitals: Vital Signs - 12hr 08/18/20 08/18/20 08/18/20 08:00 08:10 08:31 Pulse Rate 66 66 Respiratory 18 Rate Blood Pressure 128/84 128/84 128/84 O2 Sat by Pulse 100 100 Oximetry 08/18/20 08/18/20 08/18/20 09:00 09:31 10:00 Pulse Rate Respiratory Rate Blood Pressure 130/80 130/80 129/66 O2 Sat by Pulse 100 100 100 Oximetry 08/18/20 08/18/20 08/18/20 10:31 11:00 11:31 Pulse Rate 72 72 68 Respiratory 14 16 15 Rate Blood Pressure 129/66 131/74 131/74 O2 Sat by Pulse 99 100 99 Oximetry 08/18/20 08/18/20 08/18/20 12:00 12:31 13:00 Pulse Rate 66 59 L 63 Respiratory 14 19 16 Rate Blood Pressure 127/67 127/67 139/93 O2 Sat by Pulse 99 100 99 Oximetry 08/18/20 08/18/20 08/18/20 13:30 14:00 14:31 Pulse Rate 65 60 62 Respiratory 19 16 14 Rate Blood Pressure 139/93 114/70 114/70 O2 Sat by Pulse 100 99 100 Oximetry 08/18/20 08/18/20 08/18/20 14:55 15:00 15:31 Pulse Rate 63 66 62 Respiratory 12 21 Rate Blood Pressure 126/66 126/66 O2 Sat by Pulse 100 100 Oximetry 08/18/20 08/18/20 08/18/20 16:00 16:31 17:01 Pulse Rate 62 62 51 L Respiratory 17 16 17 Rate Blood Pressure 119/65 119/65 106/57 O2 Sat by Pulse 98 97 98 Oximetry 08/18/20 08/18/20 08/18/20 17:31 18:00 18:31 Pulse Rate 58 L 61 56 L Respiratory 16 20 16 Rate Blood Pressure 106/57 110/60 110/60 O2 Sat by Pulse 100 98 100 Oximetry General appearance: Present: no acute distress, well-nourished - EENT Eyes: PERRL, EOM intact ENT: hearing intact, clear oral mucosa Ears: bilateral: normal - Neck Neck: supple, normal ROM - Respiratory Respiratory effort: normal Respiratory: bilateral: CTA - Breasts Breasts: normal - Cardiovascular Heart rate: 78 Rhythm: regular Heart Sounds: Present: S1 & S2. Absent: gallop, rub Extremities: pulses intact, No edema, normal color, Full ROM - Gastrointestinal General gastrointestinal: Present: soft, non-tender, non-distended, normal bowel sounds - Genitourinary Female genitourinary: normal - Integumentary Integumentary: clear, warm, dry - Musculoskeletal Musculoskeletal: 1, strength equal bilaterally - Neurologic Neurologic: moves all extremities - Psychiatric Psychiatric: other (Alert but not oriented) - Allied health notes Allied health notes reviewed: nursing, case management - Labs CBC & Chem 7: 08/14/20 07:31 08/18/20 05:59 Labs: Abnormal lab results 08/18/20 08/18/20 08/18/20 Range/Units 05:17 05:59 13:13 Sodium 135 L (137-145) mmol/L Carbon Dioxide 15 L (22-30) mmol/L BUN 48 H (7-17) mg/dL POC Glucose 61 L 131 H (70-105) mg/dL 08/18/20 Range/Units 17:36 Sodium (137-145) mmol/L Carbon Dioxide (22-30) mmol/L BUN (7-17) mg/dL POC Glucose 124 H (70-105) mg/dL HEART Score - HEART Score Age: > 65 Risk factors: > 3 risk factors or hx of atherosclerotic disease Troponin: Troponin T < 0.010 ng/mL (0.00-0.029) 08/13/20 Unknown Troponin: 1-3x normal limit - Critical Actions Critical Actions: 4-6 pts:12-16.6% risk of adverse cardiac event. Should be admitted
[2020-08-18] MEDS: VANCOMYCIN/NS 1 GM/250 ML 1 GM/250 ML BAG IV SCH (21:28)
--- NOTE | 2020-08-18 21:28 | Progress Note ---
Assessment and Plan Critical care statement The high probability OF a clinically significant sudden or life-threatening deterioration of the cardiorespiratory system and endocrine system required my full and direct attention, intervention and postoperative management. The aggregate critical care time was 40 minutes. The time is in addition to time spent performing reported procedures but includes the followin: Data review and interpretation 2: Patient assessment and monitoring of vital signs 3: Documentation 4:: Medication orders and management - Patient Problems (1) Acute respiratory failure with hypoxia Current Visit: Yes Status: Acute Plan to address problem: Patient intubated Weaning in progress (2) Sepsis Current Visit: Yes Status: Acute Plan to address problem: Sepsis highly likely Lactic acid is high White blood cell count is normal ID consult appreciated Procalcitonin requested (3) Aspiration pneumonia Current Visit: Yes Status: Acute Qualifiers: Lung location: lower lobe of lung Plan to address problem: Highly likely aspiration pneumonia Patient initiated on IV cefepime and vancomycin ID consult requested (4) COPD (chronic obstructive pulmonary disease) Current Visit: Yes Status: Chronic Qualifiers: Chronic bronchitis type: mixed simple and mucopurulent (5) CHF (congestive heart failure) Current Visit: No Status: Acute Qualifiers: Heart failure type: systolic Heart failure chronicity: acute Qualified Code(s): I50.21 - Acute systolic (congestive) heart failure Plan to address problem: BNP is high Blood pressure is low Lasix to be used judiciously (6) Hypotension Current Visit: Yes Status: Acute Plan to address problem: Pressors if necessary Possible Ativan effect (7) T2DM (type 2 diabetes mellitus) Current Visit: Yes Status: Chronic Qualifiers: Diabetes mellitus nursing home insulin use: unspecified meterman insulin use status Plan to address problem: Daughter says there is no diabetes in patient's past medical history Check hemoglobin A1c next Accu-Cheks and high-dose sliding scale coverage next Humalog mix initiated (8) History of pulmonary embolism Current Visit: Yes Status: Chronic Plan to address problem: Patient apparently had PE and DVT in July beginning and was initiated on Eliquis As per daughter Eliquis was stopped because of GI bleed Daughter is a very poor historian Patient on heparin 5000 every 12 (9) Subdural hematoma, chronic Current Visit: Yes Status: Chronic Plan to address problem: Was treated in 2015 with a shantel holes No residual SDH (10) DVT prophylaxis Current Visit: Yes Status: Acute Plan to address problem: On heparin and GI prophylaxis Subjective Date of service: 08/16/20 Principal diagnosis: COVID Interval history: 80-year-old -[place]omin[place] female with recent Covid infection and acute respiratory failure was admitted to [facility] On 07/19/2020 and discharged on 07/24/2020. Patient was discharged home with no home oxygen as her sats were fine on room air. And ambulatory sats were also good. Patient is active and does her ADLs by herself with small help. Patient was having difficulty with breathing and EMS was called. Oxygen saturations were in the 70s. While attempting to place the patient on CPAP patient recorded and ACLS protocol was initiated. Patient was also went into ventricular tachycardia. Patient was given IV epinephrine because of the ACLS protocol. With return of spontaneous circulation. Patient was intubated on the field and was brought to the emergency room for further evaluation. On arrival in the emergency room patient was kept on ventilator and work-up was initiated. Patient had a ABG showing respiratory failure and metabolic acidosis. No acute infiltrates on the chest x-ray. As chronic interstitial markings. Patient being admitted for acute respiratory failure and hypertension with possible sepsis. History was given by her daughter who lives in [place] Her stay from July 19 to July 24, 2020 was reviewed. Patient had Covid pneumonia and acute kidney failure and syncope. Creatinine was corrected from 2.0 to normal. Day #2 S/p cardiac arrest Possible V. tach Possible aspiration pneumonia Day #3 08/15/2020 No significant interval change Possible extubation tomorrow Day #4 08/16/2020 Patient extubated today Post extubation patient doing well Objective - Exam Narrative Exam: Patient extubated - Constitutional Vitals: Vital Signs - 12hr 08/18/20 08/18/20 08/18/20 09:31 10:00 10:31 Temperature Pulse Rate 72 Respiratory 14 Rate Blood Pressure 130/80 129/66 129/66 O2 Sat by Pulse 100 100 99 Oximetry 08/18/20 08/18/20 08/18/20 11:00 11:31 12:00 Temperature Pulse Rate 72 68 66 Respiratory 16 15 14 Rate Blood Pressure 131/74 131/74 127/67 O2 Sat by Pulse 100 99 99 Oximetry 08/18/20 08/18/20 08/18/20 12:31 13:00 13:30 Temperature Pulse Rate 59 L 63 65 Respiratory 19 16 19 Rate Blood Pressure 127/67 139/93 139/93 O2 Sat by Pulse 100 99 100 Oximetry 08/18/20 08/18/20 08/18/20 14:00 14:31 14:55 Temperature Pulse Rate 60 62 63 Respiratory 16 14 Rate Blood Pressure 114/70 114/70 O2 Sat by Pulse 99 100 Oximetry 08/18/20 08/18/20 08/18/20 15:00 15:31 16:00 Temperature Pulse Rate 66 62 62 Respiratory 12 21 17 Rate Blood Pressure 126/66 126/66 119/65 O2 Sat by Pulse 100 100 98 Oximetry 08/18/20 08/18/20 08/18/20 16:31 17:01 17:31 Temperature Pulse Rate 62 51 L 58 L Respiratory 16 17 16 Rate Blood Pressure 119/65 106/57 106/57 O2 Sat by Pulse 97 98 100 Oximetry 08/18/20 08/18/20 08/18/20 18:00 18:31 19:56 Temperature Pulse Rate 61 56 L 59 L Respiratory 20 16 Rate Blood Pressure 110/60 110/60 108/54 O2 Sat by Pulse 98 100 Oximetry 08/18/20 20:00 Temperature 96.0 F L Pulse Rate Respiratory Rate Blood Pressure O2 Sat by Pulse Oximetry General appearance: Present: no acute distress, well-nourished - EENT Eyes: PERRL, EOM intact ENT: hearing intact, clear oral mucosa Ears: bilateral: normal - Neck Neck: supple, normal ROM - Respiratory Respiratory effort: normal Respiratory: bilateral: CTA - Breasts Breasts: normal - Cardiovascular Heart rate: 78 Rhythm: regular Heart Sounds: Present: S1 & S2. Absent: gallop, rub Extremities: pulses intact, No edema, normal color, Full ROM - Gastrointestinal General gastrointestinal: Present: soft, non-tender, non-distended, normal bowel sounds - Genitourinary Female genitourinary: normal - Integumentary Integumentary: clear, warm, dry - Musculoskeletal Musculoskeletal: 1, strength equal bilaterally - Neurologic Neurologic: moves all extremities - Psychiatric Psychiatric: memory intact, appropriate mood/affect, intact judgment & insight - Labs CBC & Chem 7: 08/14/20 07:31 08/18/20 05:59 Labs: Abnormal lab results 08/18/20 08/18/20 08/18/20 Range/Units 05:17 05:59 13:13 Sodium 135 L (137-145) mmol/L Carbon Dioxide 15 L (22-30) mmol/L BUN 48 H (7-17) mg/dL POC Glucose 61 L 131 H (70-105) mg/dL 08/18/20 Range/Units 17:36 Sodium (137-145) mmol/L Carbon Dioxide (22-30) mmol/L BUN (7-17) mg/dL POC Glucose 124 H (70-105) mg/dL HEART Score - HEART Score Age: > 65 Risk factors: > 3 risk factors or hx of atherosclerotic disease Troponin: Troponin T < 0.010 ng/mL (0.00-0.029) 08/13/20 Unknown Troponin: 1-3x normal limit - Critical Actions Critical Actions: 4-6 pts:12-16.6% risk of adverse cardiac event. Should be admitted
[2020-08-19 05:17] LABS: Hematocrit 37.1 % (30.3-42.9); Hemoglobin 11.7 gm/dl (10.1-14.3); Mean Corpuscular HGB Conc 32 % (30-34); Mean Corpuscular Volume 96 fl (79-97); Platelet Count 132 K/mm3 (140-440); Red Blood Count 3.88 M/mm3 (3.65-5.03); Red Cell Distribution Width 19.2 % (13.2-15.2)
[2020-08-19 05:35] LABS: Albumin 3.3 g/dL (3.9-5); Calcium 9.5 mg/dL (8.4-10.2)
[2020-08-19] MEDS: INSULIN LISPRO 100 UNIT/ML SUB-Q SCH ×3 (06:02→12:34)
[2020-08-19 06:12] LABS: Anisocytosis 1+; Total Cells Counted 100
[2020-08-19 06:13] LABS: Burr Cells Few; Macrocytosis 1+; Platelet Estimate Consistent w Auto
[2020-08-19] MEDS: ENOXAPARIN 60 MG/0.6 ML INJ SUB-Q SCH ×2 (09:19→22:08)
[2020-08-19] MEDS: FAMOTIDINE 20 MG/2 ML INJ IV SCH (09:20)
[2020-08-19] MEDS: METOPROLOL TARTRATE 25 MG TAB PO SCH ×3 (09:20→22:06)
[2020-08-19] MEDS: LOSARTAN 25 MG TAB PO SCH (09:20)
--- NOTE | 2020-08-19 10:00 | Progress Note ---
Assessment and Plan tte reviewed - EF 20%, LA severely dilated, RV systolic function mod reduced, RA mild to mod dilated, mild AR, severe MR, severe TR, RVSP 55mmHg. Per chart, pt presented with cardiopulmonary arrest - VT reportedly seen in the field, no strips available for review, unclear if VT actually occurred. Pt has h/o normal coronaries per [facility] in 2018. Additionally, pt has chronically declined AICD. Cont present cardiac management, including full dosage lovenox and plan to convert back to home Eliquis prior to discharge. Initiate remote telemetry. Continue with conservative cardiac management at this time given altered mental status and multiple co-morbidities. The patient has been seen in conjunction with Dr. Yuen who agrees with the assessment and plan of care. - Patient Problems (1) Cardiopulmonary arrest Current Visit: Yes Status: Acute Plan to address problem: with ? VT in the field - no strips available for review (2) Paroxysmal atrial fibrillation with rapid ventricular response Current Visit: Yes Status: Acute (3) COVID-19 virus infection Current Visit: Yes Status: Acute (4) History of DVT (deep vein thrombosis) Current Visit: Yes Status: Chronic (5) History of pulmonary embolism Current Visit: Yes Status: Chronic (6) Nonischemic cardiomyopathy Current Visit: Yes Status: Chronic (7) RBBB Current Visit: Yes Status: Chronic (8) COPD (chronic obstructive pulmonary disease) Current Visit: Yes Status: Chronic Qualifiers: Chronic bronchitis type: mixed simple and mucopurulent (9) HTN (hypertension) Current Visit: Yes Status: Chronic (10) Diabetes Current Visit: Yes Status: Chronic (11) Altered mental status Current Visit: Yes Status: Acute Subjective Date of service: 08/19/20 Principal diagnosis: S/p cardiac arrest, sepsis, Covid pneumonia, paroxysmal atrial fibrillation Interval history: pt resting in bed, agitated, confused. not on remote telemetry. Objective Last Vital Signs Temp 97.4 F L 08/19/20 04:53 Pulse 75 08/19/20 09:20 Resp 16 08/19/20 04:53 BP 137/77 08/19/20 09:20 Pulse Ox 91 08/19/20 09:00 - Physical Examination General: Other (agitated, confused) HEENT: Positive: PERRL Neck: Positive: neck supple, trachea midline Cardiac: Positive: Reg Rate and Rhythm, S1/S2 Lungs: Positive: Decreased Breath Sounds Neuro: Positive: Other (agitated, confused) Abdomen: Negative: Tender Skin: Negative: Rash Musculoskeletal: No Pain Extremities: Absent: edema - Labs and Meds Cardiac Enzymes 08/19/20 Range/Units 04:39 AST 33 (5-40) units/L CBC 08/19/20 Range/Units 04:39 WBC 6.8 (4.5-11.0) K/mm3 RBC 3.88 (3.65-5.03) M/mm3 Hgb 11.7 (10.1-14.3) gm/dl Hct 37.1 (30.3-42.9) % Plt Count 132 L (140-440) K/mm3 Comprehensive Metabolic Panel 08/19/20 Range/Units 04:39 Sodium 135 L (137-145) mmol/L Potassium 3.9 (3.6-5.0) mmol/L Chloride 105.1 (98-107) mmol/L Carbon Dioxide 17 L (22-30) mmol/L BUN 49 H (7-17) mg/dL Creatinine 1.1 (0.6-1.2) mg/dL Glucose 68 (65-100) mg/dL Calcium 9.5 (8.4-10.2) mg/dL AST 33 (5-40) units/L ALT 45 (7-56) units/L Alkaline Phosphatase 94 (35-129) units/L Total Protein 6.6 (6.3-8.2) g/dL Albumin 3.3 L (3.9-5) g/dL - Imaging and Cardiology EKG: report reviewed, image reviewed Echo: report reviewed (05/2018 showed EF 20-25%, pseudonormalization, LA severely dilated, RV mild to mod dilated, RV systolic function mildly reduced, mod AR, mod to severe MR, mild to mod TR, pulm HTN with RVSP 61mmHg. ) Cardiac cath: report reviewed (RHC and LHC done 11/2017 showed angiographically normal coronaries, EF 25%, right atrial 13 mmHg, right ventricle 73/28 mmHg, coronary artery 73 over 8 mmHg, pulmonary capillary wedge 23 mmHg, cardiac index 1.46.) - EKG Sinus rhythms and dysrhythmias: sinus rhythm AV and intraventricular conduction: right bundle branch block
[2020-08-19] MEDS: CEFEPIME/NS 2 GM/100 ML 2 GM/100 ML BAG IV SCH ×2 (10:08→22:04)
[2020-08-19] MEDS ORDERED: HALOPERIDOL DECANOATE 100 MG/1 ML INJ IM PRN (10:11)
[2020-08-19] MEDS: HALOPERIDOL LACTATE 5 MG/1 ML INJ IM PRN ×2 (11:52→22:10)
--- NOTE | 2020-08-19 13:26 | Progress Note ---
Assessment and Plan Cultures: Blood culture no growth today SARS CoV2 PCR positive BAL 08/13/2020 normal respiratory soren Assessment: 80 years old female with history of CHF, diabetes mellitus, COPD, hypertension, previous pulmonary embolism, A. fib, recent COVID-19 pneumonia with hypoxia admitted to [facility] from 07/19/2020 to 07/24/2020, treated with remdesivir and Decadron found to have bilateral DVTs and AKA, is now readmitted on 08/13/2020 secondary to acute respiratory distress, experienced cardiac arrest with V. tach, patient underwent ACLS was intubated on the field: #Severe sepsis septic shock versus cardiogenic shock/out of hospital cardiac arrest: improved #Critical COVID pneumonia versus bacterial pneumonia: Likely cytokine storm post COVID. The possibility of bacterial aspiration pneumonia is also in the differential. CT chest shows bilateral infiltrates. No pulmonary embolism seen. Repeat chest x-ray with bilateral mild interstitial opacities. Elevated markers, including D-dimer 8000. #Acute hypoxemic respiratory failure: Patient intubated on the field during cardiac arrest and resuscitation. Self extubated, stable on 3 L nasal cannula. #Elevated LFTs: from COVID/shock, remains elevated #KATHY: resolved. #Recent bilateral leg DVT: #Acute encephalopathy: Post cardiac arrest ? Improving. Recommendations: -Vancomycin discontinued -Continue Cefepime, D6 of 7 -completed steroids Thelma Snowden MD, FACP [facility] O: [phone] F: [phone] Subjective Date of service: 08/19/20 Principal diagnosis: S/p cardiac arrest, sepsis, Covid pneumonia, paroxysmal atrial fibrillation Interval history: Afebrile. Stable on 3 L oxygen by nasal cannula. Objective - Exam Narrative Exam: Physical Exam (reviewed in chart to minimize risk of transmission) Constitutional: deferred Head, Ears, Nose: deferred Eyes: deferred Neck: deferred Oral: deferred Cardiovascular: deferred Respiratory: deferred GI: deferred Musculoskeletal: deferred Skin: deferred Hem/Lymphatic: deferred Psych: deferred Neurological: deferred - Constitutional Vitals: Vital Signs Temp Pulse Resp BP Pulse Ox 97.3 F L 67 16 107/51 96 08/19/20 11:09 08/19/20 11:09 08/19/20 11:09 08/19/20 11:09 08/19/20 11:09 Temperature -Last 24 Hours Temperature 97.3 F Temperature 97.4 F Temperature 96.7 F Temperature 96.0 F - Labs CBC & Chem 7: 08/19/20 04:39 08/19/20 04:39 Labs: Abnormal lab results 08/18/20 08/19/20 08/19/20 Range/Units 17:36 04:39 04:39 RDW 19.2 H (13.2-15.2) % Plt Count 132 L (140-440) K/mm3 Monocytes % (Manual) 9.0 H (0.0-7.3) % Nucleated RBC % 1.0 H (0.0-0.9) % Sodium 135 L (137-145) mmol/L Carbon Dioxide 17 L (22-30) mmol/L BUN 49 H (7-17) mg/dL POC Glucose 124 H (70-105) mg/dL Total Bilirubin 2.00 H (0.1-1.2) mg/dL Albumin 3.3 L (3.9-5) g/dL 08/19/20 08/19/20 Range/Units 05:57 07:46 RDW (13.2-15.2) % Plt Count (140-440) K/mm3 Monocytes % (Manual) (0.0-7.3) % Nucleated RBC % (0.0-0.9) % Sodium (137-145) mmol/L Carbon Dioxide (22-30) mmol/L BUN (7-17) mg/dL POC Glucose 67 L 52 L (70-105) mg/dL Total Bilirubin (0.1-1.2) mg/dL Albumin (3.9-5) g/dL
--- NOTE | 2020-08-19 23:11 | Progress Note ---
Assessment and Plan - Patient Problems (1) Acute respiratory failure with hypoxia Current Visit: Yes Status: Acute Plan to address problem: Patient is extubated Post extubation doing well (2) Sepsis Current Visit: Yes Status: Acute Plan to address problem: Patient on IV cefepime and vancomycin Vancomycin discontinued Cefepime day 6 of day 7 (3) Aspiration pneumonia Current Visit: Yes Status: Acute Qualifiers: Lung location: lower lobe of lung Plan to address problem: Highly likely aspiration pneumonia Patient initiated on IV cefepime and vancomycin (4) COPD (chronic obstructive pulmonary disease) Current Visit: Yes Status: Chronic Qualifiers: Chronic bronchitis type: mixed simple and mucopurulent Plan to address problem: Duo nebs [id number]-[id number] IV antibiotics and IV Solu-Medrol initiated (5) CHF (congestive heart failure) Current Visit: No Status: Acute Qualifiers: Heart failure type: systolic Heart failure chronicity: acute Qualified Code(s): I50.21 - Acute systolic (congestive) heart failure Plan to address problem: BNP is high Blood pressure is low Lasix to be used judiciously (6) Hypotension Current Visit: Yes Status: Acute Plan to address problem: Blood pressure stable now (7) T2DM (type 2 diabetes mellitus) Current Visit: Yes Status: Chronic Qualifiers: Diabetes mellitus longterm insulin use: 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 insulin 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 status Plan to address problem: Daughter says there is no diabetes in patient's past medical history Coverage for now (8) History of pulmonary embolism Current Visit: Yes Status: Chronic Plan to address problem: Patient apparently had PE and DVT in July beginning and was initiated on Eliquis As per daughter Eliquis was stopped because of GI bleed Daughter is a very poor historian Patient on heparin 5000 every 12 (9) Subdural hematoma, chronic Current Visit: Yes Status: Chronic Plan to address problem: Was treated in 2016 with a shantel holes No residual SDH (10) Paroxysmal atrial fibrillation Current Visit: Yes Status: Acute Plan to address problem: Patient is on Lovenox and to be changed to Eliquis at the time of discharge (11) Dementia Current Visit: Yes Status: Acute Plan to address problem: Added Risperdal scheduled and Haldol as needed Also Tonya psych consult requested for placement (12) DVT prophylaxis Current Visit: Yes Status: Acute Plan to address problem: On Lovenox and GI prophylaxis Subjective Date of service: 08/19/20 Principal diagnosis: S/p cardiac arrest, sepsis, Covid pneumonia, paroxysmal atrial fibrillation Interval history: 80-year-old -[place] female with recent Covid infection and acute respiratory failure was admitted to [facility] On 07/19/2020 and discharged on 07/24/2020. Patient was discharged home with no home oxygen as her sats were fine on room air. And ambulatory sats were also good. Patient is active and does her ADLs by herself with small help. Patient was having difficulty with breathing and EMS was called. Oxygen saturations were in the 70s. While attempting to place the patient on CPAP patient recorded and ACLS protocol was initiated. Patient was also went into ventricular tachycardia. Patient was given IV epinephrine because of the ACLS protocol. With return of spontaneous circulation. Patient was intubated on the field and was brought to the emergency room for further evaluation. On arrival in the emergency room patient was kept on ventilator and work-up was initiated. Patient had a ABG showing respiratory failure and metabolic acidosis. No acute infiltrates on the chest x-ray. As chronic interstitial markings. Patient being admitted for acute respiratory failure and hypertension with possible sepsis. History was given by her daughter who lives in [place] Her stay from July 19 to July 24, 2020 was reviewed. Patient had Covid pneumonia and acute kidney failure and syncope. Creatinine was corrected from 2.0 to normal. Day #2 S/p cardiac arrest Possible V. tach Possible aspiration pneumonia Day #3 08/15/2020 No significant interval change Possible extubation tomorrow Day #4 08/16/2020 Patient extubated today Post extubation patient doing well Day #5 08/17/2020 Post extubation patient doing well Day #6 08/18/2020 Patient stable Patient alert but not oriented Day #7 08/19/2020 Patient confused and agitated Patient initiated on Haldol as needed Risperdal added Objective - Constitutional Vitals: Vital Signs - 12hr 08/19/20 08/19/20 08/19/20 11:09 16:08 16:22 Temperature 97.3 F L 97.3 F L Pulse Rate 67 67 66 Respiratory 16 18 Rate Blood Pressure 107/51 107/51 141/63 O2 Sat by Pulse 96 99 Oximetry 08/19/20 08/19/20 21:46 22:06 Temperature 97.5 F L Pulse Rate 79 79 Respiratory 20 Rate Blood Pressure 161/90 167/90 O2 Sat by Pulse 96 Oximetry General appearance: Present: no acute distress, well-nourished - EENT Eyes: PERRL, EOM intact ENT: hearing intact, clear oral mucosa Ears: bilateral: normal - Neck Neck: supple, normal ROM - Respiratory Respiratory effort: normal Respiratory: bilateral: CTA - Breasts Breasts: normal - Cardiovascular Heart rate: 78 Rhythm: regular Heart Sounds: Present: S1 & S2. Absent: gallop, rub Extremities: pulses intact, No edema, normal color, Full ROM - Gastrointestinal General gastrointestinal: Present: soft, non-tender, non-distended, normal bowel sounds - Genitourinary Female genitourinary: normal - Integumentary Integumentary: clear, warm, dry - Musculoskeletal Musculoskeletal: 1, strength equal bilaterally - Neurologic Neurologic: moves all extremities - Psychiatric Psychiatric: memory intact, appropriate mood/affect, intact judgment & insight - Labs CBC & Chem 7: 08/19/20 04:39 08/19/20 04:39 Labs: Abnormal lab results 08/19/20 08/19/20 08/19/20 Range/Units 04:39 04:39 05:57 RDW 19.2 H (13.2-15.2) % Plt Count 132 L (140-440) K/mm3 Monocytes % (Manual) 9.0 H (0.0-7.3) % Nucleated RBC % 1.0 H (0.0-0.9) % Sodium 135 L (137-145) mmol/L Carbon Dioxide 17 L (22-30) mmol/L BUN 49 H (7-17) mg/dL POC Glucose 67 L (70-105) mg/dL Total Bilirubin 2.00 H (0.1-1.2) mg/dL Albumin 3.3 L (3.9-5) g/dL 08/19/20 Range/Units 07:46 RDW (13.2-15.2) % Plt Count (140-440) K/mm3 Monocytes % (Manual) (0.0-7.3) % Nucleated RBC % (0.0-0.9) % Sodium (137-145) mmol/L Carbon Dioxide (22-30) mmol/L BUN (7-17) mg/dL POC Glucose 52 L (70-105) mg/dL Total Bilirubin (0.1-1.2) mg/dL Albumin (3.9-5) g/dL HEART Score - HEART Score Age: > 65 Risk factors: > 3 risk factors or hx of atherosclerotic disease Troponin: Troponin T < 0.010 ng/mL (0.00-0.029) 08/13/20 Unknown Troponin: 1-3x normal limit - Critical Actions Critical Actions: 4-6 pts:12-16.6% risk of adverse cardiac event. Should be admitted
[2020-08-20] MEDS: INSULIN LISPRO 100 UNIT/ML SUB-Q SCH ×5 (00:56→18:44)
[2020-08-20 06:16] LABS: Hematocrit 38.8 % (30.3-42.9); Hemoglobin 12.4 gm/dl (10.1-14.3); Mean Corpuscular HGB Conc 32 % (30-34); Mean Corpuscular Volume 94 fl (79-97); Platelet Count 175 K/mm3 (140-440); Red Blood Count 4.12 M/mm3 (3.65-5.03); Red Cell Distribution Width 19.5 % (13.2-15.2)
[2020-08-20 06:31] LABS: Alanine Aminotransferase 65 units/L (7-56); Albumin 3.8 g/dL (3.9-5); BUN/Creatinine Ratio 41; Blood Urea Nitrogen 41 mg/dL (7-17); Calcium 9.6 mg/dL (8.4-10.2); Hemolysis Index 40
[2020-08-20 08:24] LABS: Total Cells Counted 100
[2020-08-20 08:25] LABS: Anisocytosis 1+; Burr Cells 1+; Ovalocytes 1+; Poikilocytosis 2+; Tear Drop Cells Few
[2020-08-20 08:26] LABS: Platelet Estimate Consistent w Auto; Schistocytes Rare
[2020-08-20] MEDS ORDERED: risperiDONE 0.25 MG TAB PO SCH (10:00)
[2020-08-20] MEDS ORDERED: FAMOTIDINE 20 MG TAB PO SCH (10:00)
[2020-08-20] MEDS: CEFEPIME/NS 2 GM/100 ML 2 GM/100 ML BAG IV SCH (10:26)
[2020-08-20] MEDS: METOPROLOL TARTRATE 25 MG TAB PO SCH ×2 (10:26→13:37)
[2020-08-20] MEDS: ENOXAPARIN 60 MG/0.6 ML INJ SUB-Q SCH (10:27)
[2020-08-20] MEDS: LOSARTAN 25 MG TAB PO SCH (10:27)
--- NOTE | 2020-08-20 10:34 | Progress Note ---
Assessment and Plan tte reviewed - EF 20%, LA severely dilated, RV systolic function mod reduced, RA mild to mod dilated, mild AR, severe MR, severe TR, RVSP 55mmHg. Per chart, pt presented with cardiopulmonary arrest - VT reportedly seen in the field, no strips available for review, unclear if VT actually occurred. Pt has h/o normal coronaries per [facility] in 2018. Additionally, pt has chronically declined AICD. Currently stable cardiac status. Convert lovenox to home Eliquis. Cont all other present cardiac management. Continue with conservative cardiac management at this time given altered mental status and multiple co-morbidities. Psych team is following. Nothing further to add from cardiac perspective at this time. Will follow on as needed basis. Recommend pt follow up in our office with Dr. Selwyn Delarosa within 2 weeks of discharge ([phone]). The patient has been seen in conjunction with Dr. Yuen who agrees with the assessment and plan of care. - Patient Problems (1) Cardiopulmonary arrest Current Visit: Yes Status: Acute Plan to address problem: with ? VT in the field - no strips available for review (2) Paroxysmal atrial fibrillation with rapid ventricular response Current Visit: Yes Status: Acute (3) COVID-19 virus infection Current Visit: Yes Status: Acute (4) History of DVT (deep vein thrombosis) Current Visit: Yes Status: Chronic (5) History of pulmonary embolism Current Visit: Yes Status: Chronic (6) Nonischemic cardiomyopathy Current Visit: Yes Status: Chronic (7) RBBB Current Visit: Yes Status: Chronic (8) COPD (chronic obstructive pulmonary disease) Current Visit: Yes Status: Chronic Qualifiers: Chronic bronchitis type: mixed simple and mucopurulent (9) HTN (hypertension) Current Visit: Yes Status: Chronic (10) Diabetes Current Visit: Yes Status: Chronic (11) Altered mental status Current Visit: Yes Status: Acute Subjective Date of service: 08/20/20 Principal diagnosis: S/p cardiac arrest, sepsis, Covid pneumonia, paroxysmal atrial fibrillation Interval history: pt resting in bed, no apparent distress, remains confused. in SR HR 60s with PACs. Objective Last Vital Signs Temp 97.9 F 08/20/20 05:50 Pulse 78 08/20/20 05:50 Resp 18 08/20/20 05:50 BP 126/79 08/20/20 05:50 Pulse Ox 95 08/20/20 08:45 - Physical Examination General: Other (confused) HEENT: Positive: PERRL Neck: Positive: neck supple, trachea midline Cardiac: Positive: Reg Rate and Rhythm, S1/S2 Lungs: Positive: Decreased Breath Sounds Neuro: Positive: Other (confused) Abdomen: Negative: Tender Skin: Negative: Rash Musculoskeletal: No Pain Extremities: Absent: edema - Labs and Meds Cardiac Enzymes 08/20/20 Range/Units 05:38 AST 64 H (5-40) units/L CBC 08/20/20 Range/Units 05:38 WBC 5.9 (4.5-11.0) K/mm3 RBC 4.12 (3.65-5.03) M/mm3 Hgb 12.4 (10.1-14.3) gm/dl Hct 38.8 (30.3-42.9) % Plt Count 175 (140-440) K/mm3 Comprehensive Metabolic Panel 08/20/20 Range/Units 05:38 Sodium 138 (137-145) mmol/L Potassium 4.4 (3.6-5.0) mmol/L Chloride 110.3 H (98-107) mmol/L Carbon Dioxide 14 L (22-30) mmol/L BUN 41 H (7-17) mg/dL Creatinine 1.0 (0.6-1.2) mg/dL Glucose 82 (65-100) mg/dL Calcium 9.6 (8.4-10.2) mg/dL AST 64 H (5-40) units/L ALT 65 H (7-56) units/L Alkaline Phosphatase 105 (35-129) units/L Total Protein 7.1 (6.3-8.2) g/dL Albumin 3.8 L (3.9-5) g/dL - Imaging and Cardiology EKG: report reviewed, image reviewed Echo: report reviewed (05/2018 showed EF 20-25%, pseudonormalization, LA severely dilated, RV mild to mod dilated, RV systolic function mildly reduced, mod AR, mod to severe MR, mild to mod TR, pulm HTN with RVSP 61mmHg. ) Cardiac cath: report reviewed (RHC and LHC done 11/2017 showed angiographically normal coronaries, EF 25%, right atrial 13 mmHg, right ventricle 73/28 mmHg, coronary artery 73 over 8 mmHg, pulmonary capillary wedge 23 mmHg, cardiac index 1.46.) - Telemetry EKG Rhythm: Sinus Rhythm - EKG Sinus rhythms and dysrhythmias: sinus rhythm AV and intraventricular conduction: right bundle branch block
--- NOTE | 2020-08-20 11:13 | Consultation ---
History of Present Illness - Reason for Consult Consult date: 08/20/20 Reason for consult: agitation - History of Present Psychiatric Illness I attempted to interview the patient today, she is lying down asleep. She appears comfortable. She would not arouse to engage in interview. She has soft mitts on her hands. MD is entering room and states that the patient has been agitated at times. States he did not want her knocked out but just calm. Agree with currently ordered meds by Dr. Wade. PAST PSYCHIATRIC HISTORY: Unable to assess PAST MEDICAL HISTORY: No significant past medical history Family Psychiatric History: None reported or documented SOCIAL HISTORY Unable to assess REVIEW OF SYSTEMS Unable to assess MENTAL STATUS EXAMINATION Unable to assess Assessment and Plan Delirium Current Visit: Yes Status: Acute Treatment Plan Agree with PO risperidone and IM Haldol PRN Medical: per primary Disposition: Do not Recommend acute inpatient treatment Will follow for med management and psychiatric progress Case staffed with Dr. Harris Medications and Allergies Allergies Allergy/AdvReac Type Severity Reaction Status Date / Time ramipril Allergy Unknown Verified 06/15/18 12:45 Home Medications Medication Instructions Recorded Confirmed Last Taken Type Aspirin [Aspirin BABY CHEW TAB] 81 mg PO DAILY 03/14/18 07/23/20 Unknown History Carvedilol [Coreg] 3.125 mg PO DAILY 03/14/18 07/23/20 Unknown History Docusate Sodium [Stool Softener] 100 mg PO DAILY 03/14/18 07/23/20 Unknown History Spironolactone 25 mg PO DAILY 03/14/18 07/23/20 Unknown History Pantoprazole [Protonix TAB] 40 mg PO QDAY #30 tablet 06/18/18 07/23/20 Unknown Rx polyethylene glycoL 3350 [Miralax 17 gm PO BID PRN #20 powd.pack 06/18/18 07/23/20 Unknown Rx 3350] Antacid [Alum-Mag Hydrox-Simeth 15 ml PO Q4H PRN oral.liqd 07/24/20 Unknown Rx [id number]/5Ml] Apixaban [Eliquis] 2.5 mg PO Q12HR #60 tablet 07/24/20 Unknown Rx Ascorbic Acid [Vitamin C] 500 mg PO DAILY #30 tablet 07/24/20 Unknown Rx Zinc Sulfate 220 mg PO QDAY #30 capsule 07/24/20 Unknown Rx dexAMETHasone [Dexamethasone] 6 mg PO DAILY #6 tablet 07/24/20 Unknown Rx traMADoL [Ultram 50 MG tab] 50 mg PO Q4H PRN #6 tablet 07/24/20 Unknown Rx Active Meds: Active Medications Acetaminophen (Acetaminophen 325 Mg/10.15 Ml Oral Liqd Unit Dose) 650 mg PO Q6H PRN PRN Reason: Pain, Mild (1-3) Last Admin: 08/18/20 18:00 Dose: 650 mg Documented by: Albuterol (Albuterol 2.5 Mg/3 Ml Nebu) 2.5 mg IH Q4HRT PRN PRN Reason: Shortness Of Breath Lipase/Protease/Amylase (Lipase 10,500/Protease 25,000/Amylase 43,750 (Units) Dr Watkins) 1 each FEEDTUBE PRN PRN PRN Reason: For Clogged Feeding Tube Apixaban (Apixaban 2.5 Mg Tab) 2.5 mg PO Q12HR [facility]; Protocol Famotidine (Famotidine 20 Mg Tab) 20 mg PO DAILY [facility] Last Admin: 08/20/20 10:27 Dose: 20 mg Documented by: Haloperidol Lactate (Haloperidol Lactate 5 Mg/1 Ml Inj) 5 mg IM Q12HR PRN PRN Reason: Agitation Last Admin: 08/19/20 22:10 Dose: 5 mg Documented by: Cefepime HCl (Cefepime/Ns 2 Gm/100 Ml) 2 gm in 100 mls @ 200 mls/hr IV Q12H [facility]; Protocol Stop: 08/20/20 20:29 Last Admin: 08/20/20 10:26 Dose: 200 mls/hr Documented by: Insulin Human Lispro (Insulin Lispro 100 Unit/Ml) 0 unit SUB-Q Q6HR [facility]; Protocol Last Admin: 08/20/20 10:26 Dose: Not Given Documented by: Losartan Potassium (Losartan 25 Mg Tab) 12.5 mg PO QDAY [facility] Last Admin: 08/20/20 10:27 Dose: 12.5 mg Documented by: Metoprolol Tartrate (Metoprolol Tartrate 25 Mg Tab) 25 mg PO TID [facility] Last Admin: 08/20/20 10:26 Dose: 25 mg Documented by: Ondansetron HCl (Ondansetron 4 Mg/2 Ml Inj) 4 mg IV Q8H PRN PRN Reason: Nausea And Vomiting Risperidone (Risperidone 0.25 Mg Tab) 0.5 mg PO QAM [facility]LEX[facility] Last Admin: 08/20/20 10:27 Dose: 0.5 mg Documented by: Risperidone (Risperidone 1 Mg Tab) 1 mg PO QHS [facility] Sodium Chloride (Sodium Chloride 0.9% 10 Ml Flush Syringe) 10 ml IV BID ALEXANDER Last Admin: 08/20/20 10:27 Dose: 10 ml Documented by: Sodium Chloride (Sodium Chloride 0.9% 10 Ml Flush Syringe) 10 ml IV PRN PRN PRN Reason: LINE FLUSH Last Admin: 08/14/20 00:06 Dose: 10 ml Documented by: Mental Status Exam - Vital signs Last Vital Signs Temp 97.8 F 08/20/20 10:26 Pulse 71 08/20/20 10:26 Resp 18 08/20/20 10:26 BP 109/63 08/20/20 10:26 Pulse Ox 93 08/20/20 10:26 Results Result Diagrams: 08/20/20 05:38 08/20/20 05:38 Abnormal lab results 08/19/20 08/19/20 08/20/20 Range/Units 05:57 07:46 05:38 RDW 19.5 H (13.2-15.2) % Seg Neuts % (Manual) 77.0 H (40.0-70.0) % Lymphocytes % (Manual) 9.0 L (13.4-35.0) % Monocytes % (Manual) 10.0 H (0.0-7.3) % Nucleated RBC % 2.0 H (0.0-0.9) % Lymphocytes # (Manual) 0.5 L (1.2-5.4) K/mm3 Chloride (98-107) mmol/L Carbon Dioxide (22-30) mmol/L BUN (7-17) mg/dL POC Glucose 67 L 52 L (70-105) mg/dL Total Bilirubin (0.1-1.2) mg/dL AST (5-40) units/L ALT (7-56) units/L Albumin (3.9-5) g/dL 08/20/20 Range/Units 05:38 RDW (13.2-15.2) % Seg Neuts % (Manual) (40.0-70.0) % Lymphocytes % (Manual) (13.4-35.0) % Monocytes % (Manual) (0.0-7.3) % Nucleated RBC % (0.0-0.9) % Lymphocytes # (Manual) (1.2-5.4) K/mm3 Chloride 110.3 H (98-107) mmol/L Carbon Dioxide 14 L (22-30) mmol/L BUN 41 H (7-17) mg/dL POC Glucose (70-105) mg/dL Total Bilirubin 2.70 H (0.1-1.2) mg/dL AST 64 H (5-40) units/L ALT 65 H (7-56) units/L Albumin 3.8 L (3.9-5) g/dL All other labs normal.
--- NOTE | 2020-08-20 14:16 | Progress Note ---
Assessment and Plan Cultures: Blood culture no growth today SARS CoV2 PCR positive BAL 08/13/2020 normal respiratory soren Assessment: 80 years old female with history of CHF, diabetes mellitus, COPD, hypertension, previous pulmonary embolism, A. fib, recent COVID-19 pneumonia with hypoxia admitted to [facility] from 07/19/2020 to 07/24/2020, treated with remdesivir and Decadron found to have bilateral DVTs and AKA, is now readmitted on 08/13/2020 secondary to acute respiratory distress, experienced cardiac arrest with V. tach, patient underwent ACLS was intubated on the field: #Severe sepsis septic shock versus cardiogenic shock/out of hospital cardiac arrest: improved #Critical COVID pneumonia versus bacterial pneumonia: treated with steroids and empiric abx to cover for aspiration. #Acute hypoxemic respiratory failure: Patient intubated on the field during cardiac arrest and resuscitation. Self extubated, to nasal cannula and then weaned to room air. #Elevated LFTs: from COVID/shock, mild and stable. #KATHY: resolved. #Recent bilateral leg DVT: #Acute encephalopathy: Post cardiac arrest ? Improving. Recommendations: -Completed 7 days of Cefepime, order d/rainer -completed steroids Thelma Snowden MD, FACP [facility] O: [phone] F: [phone] Subjective Date of service: 08/20/20 Principal diagnosis: S/p cardiac arrest, sepsis, Covid pneumonia, paroxysmal atrial fibrillation Interval history: No fever. Patient weaned to room air. On and off confusion. Objective - Exam Narrative Exam: Physical Exam (reviewed in chart to minimize risk of transmission) Constitutional: deferred Head, Ears, Nose: deferred Eyes: deferred Neck: deferred Oral: deferred Cardiovascular: deferred Respiratory: deferred GI: deferred Musculoskeletal: deferred Skin: deferred Hem/Lymphatic: deferred Psych: deferred Neurological: deferred - Constitutional Vitals: Vital Signs Temp Pulse Resp BP Pulse Ox 97.8 F 71 18 109/63 93 08/20/20 10:08/20/20 10:08/20/20 10:08/20/20 10:08/20/20 10:26 Temperature -Last 24 Hours Temperature 97.8 F Temperature 97.9 F Temperature 97.5 F Temperature 97.3 F - Labs CBC & Chem 7: 08/20/20 05:38 08/20/20 05:38 Labs: Abnormal lab results 08/20/20 08/20/20 Range/Units 05:38 05:38 RDW 19.5 H (13.2-15.2) % Seg Neuts % (Manual) 77.0 H (40.0-70.0) % Lymphocytes % (Manual) 9.0 L (13.4-35.0) % Monocytes % (Manual) 10.0 H (0.0-7.3) % Nucleated RBC % 2.0 H (0.0-0.9) % Lymphocytes # (Manual) 0.5 L (1.2-5.4) K/mm3 Chloride 110.3 H (98-107) mmol/L Carbon Dioxide 14 L (22-30) mmol/L BUN 41 H (7-17) mg/dL Total Bilirubin 2.70 H (0.1-1.2) mg/dL AST 64 H (5-40) units/L ALT 65 H (7-56) units/L Albumin 3.8 L (3.9-5) g/dL
[2020-08-20 18:03] VITALS: BP 120/72
[2020-08-20] MEDS ORDERED: risperiDONE 1 MG TAB PO SCH (22:00)
[2020-08-20] MEDS ORDERED: APIXABAN 2.5 MG TAB PO SCH (22:00)
== END 2020-08-20 19:31 | disposition home health service (06) | DRG 871 ==
LOC: ED 12:47 → CC1 18:41 → IMCU 08-15 14:52 → 3A 08-19 01:02
PROVIDERS: ADMIT Internal Medicine; ATTEND Internal Medicine
PROC: 0BH17EZ Insertion of Endotracheal Airway into Trachea, Via Natural or Artificial Opening (ICD-10-PCS; principal; 2020-08-13)
PROC: 4A033R1 Measurement of Arterial Saturation, Peripheral, Percutaneous Approach (ICD-10-PCS; 2020-08-13)
PROC: 5A1945Z Respiratory Ventilation, 24-96 Consecutive Hours (ICD-10-PCS; 2020-08-13)
DX: A41.9 Sepsis, unspecified organism (principal); J96.01 Acute respiratory failure with hypoxia; J69.0 Pneumonitis due to inhalation of food and vomit; I50.21 Acute systolic (congestive) heart failure; U07.1 COVID-19; I62.03 Nontraumatic chronic subdural hemorrhage; E87.2 Acidosis; I46.9 Cardiac arrest, cause unspecified; I42.8 Other cardiomyopathies; G93.40 Encephalopathy, unspecified; I47.2 Ventricular tachycardia; E87.5 Hyperkalemia; I48.0 Paroxysmal atrial fibrillation; J44.9 Chronic obstructive pulmonary disease, unspecified; I11.0 Hypertensive heart disease with heart failure; E11.649 Type 2 diabetes mellitus with hypoglycemia without coma; Z90.49 Acquired absence of other specified parts of digestive tract; Z88.8 Allergy status to other drugs, medicaments and biological substances; Z79.899 Other long term (current) drug therapy; Z86.711 Personal history of pulmonary embolism; Z79.01 Long term (current) use of anticoagulants; Z86.718 Personal history of other venous thrombosis and embolism
CPT/HCPCS: 36415; 70450; 71045; 71275; 80048; 80053; 80061; 80202; 81001; 82140; 82550; 82728; 82803; 82805; 82947; 82962; 83615; 83735; 83880; 84100; 84134; 84145; 84484; 85007; 85025; 85379; 85730; 86140; 86850; 86900; 86901; 87040; 87086; 87116; 93005; 93306; 94002; 94003; 94640; 94760; 96365; 96375; G0378; J0692; J1610; J1630; J1650; J1815; J2060; J2920; J3010; J3370; J7030; J7042; J7050; Q9967; U0003